=== PATIENT | male | born 1935 | race Caucasian/White ===

== ENCOUNTER 2019-10-22 11:38 | Inpatient (IN) | payer MEDICARE, SELFPAY ==
[2019-10-22] VITALS (7 sets, daily range): BP systolic 115–167; BP diastolic 61–82; PULSE 64–94; RESP 16–24; TEMP 36.4–36.7; O2SAT 95–99; BMI 33.4
--- NOTE | ~2019-10-22 | CT_ITS ---
EXAMINATION: CT abdomen pelvis wo con DATE: 10/22/2019 13:08 INDICATION: Vomiting and diarrhea TECHNIQUE: Computed tomography (CT) of the abdomen and pelvis was performed without intravenous contr ast. The dose-length product (DLP) was 1102.05 mGy-cm. Automated exposure control and iterative recon struction technique were employed. COMPARISON: None FINDINGS: . Minimal dependent atelectasis is present in the lung bases. The heart size is normal. The gallbladder is surgically absent. There is a small sliding hiatal hernia. The liver, spleen, pancrea s, and adrenal glands are normal. There is mild atrophy of the otherwise normal kidneys. No pathologi richardson enlarged abdominal or pelvic lymph nodes are identified. There is calcified atherosclerosis of the aorta and many of the other arteries. There is liquid contents throughout the small bowel and col on. There is mildly dilated small bowel in the midabdomen without focal transition point. Colonic div erticulosis is present without evidence of diverticulitis. There is severe lumbar spondylosis. IMPRESSION: 1. Liquid contents throughout the small and large bowel, suggestive of enteritis. 2. Mildly dilated small bowel in the midabdomen without focal transition point, consistent with parti al obstruction versus ileus. Reviewed, dictated and finalized at location A. IMPRESSION: 1. Liquid contents throughout the small and large bowel, suggestive of enteriti s. 2. Mildly dilated small bowel in the midabdomen without focal transition point, consistent with partial obstruction versus ileus.
--- NOTE | 2019-10-22 11:45 | ED.NAVMDI ---
HPI - Nausea/Vomiting/Diarrhea General Chief complaint: Nausea/Vomiting/Diarrhea Stated complaint: N/V/D Time Seen by Provider: 10/22/19 11:44 Source: patient Mode of arrival: EMS Limitations: no limitations History of Present Illness HPI Narrative: An 83 y/o male pt has presented to the ED via EMS from [facility] with c/o N/V/D. Pt states that he has experienced vomiting and yellow diarrhea since last night. Pt denies rhinorrhea, dizziness from sitting to standing, sore throat, or productive cough. He notes that he does not remember the exact amount of loose stools, but states that there have been a large amount of occurrences. Pt states that he ate fresh rice with chicken last night at the [facility]. He reports a H/O DM, HTN, and bowel obstruction. Pt denies a H/O CHF. He also denies sick contact a recent use of antibiotics. MD elicited complaint: nausea, vomiting and diarrhea Pertinent past history: bowel obstruction and other (DM, HTN) Onset (ago): day(s) (last night) Description of diarrhea: lose and other (yellow) Associated nausea: Yes Associated symptoms: denies other symptoms Related Data Home Medications Medication Instructions Recorded Confirmed allopurinol 100 mg PO DAILY 10/22/19 amlodipine 10 mg PO DAILY 10/22/19 dulaglutide [Trulicity] mg SUBCUT WEEKLY 10/22/19 duloxetine 60 mg PO DAILY 10/22/19 furosemide 20 mg PO DAILY 10/22/19 glipizide 10 mg PO BID 10/22/19 magnesium oxide 250 mg PO DAILY 10/22/19 metformin 1,000 mg PO BID 10/22/19 metoprolol succinate 25 mg PO DAILY 10/22/19 omeprazole 20 mg PO DAILY 10/22/19 potassium chloride 20 meq PO DAILY 10/22/19 thyroid (pork) [[employer] Thyroid] 90 mg PO DAILY 10/22/19 Allergies Allergy/AdvReac Type Severity Reaction Status Date / Time Sulfa (Sulfonamide Allergy Unknown Unknown Verified 10/22/19 17:19 Antibiotics) Review of Systems Review of Systems: All systems reviewed & are unremarkable except as noted in HPI and below ENT: Denies sore throat and Denies other (rhinorrhea) Respiratory: Respiratory: Denies cough (productive) Gastrointestinal: Gastrointestinal: Reports diarrhea (yellow), Reports nausea and Reports vomiting Neurologic: Denies dizziness (going from sitting sitting to standing) [facility] Past Medical History Medical History (Updated 10/22/19 @ 17:42 by Shalini Sanchez NP) Arthritis Chronic renal failure, stage 3 (moderate) Diabetes H/O diabetes mellitus HTN (hypertension) Hx of radiation therapy Hypothyroidism IBS (irritable bowel syndrome) With diarrhea Renal disease Surgical History Surgical History (Updated 10/22/19 @ 17:36 by Shalini Sanchez NP) H/O esophagogastroduodenoscopy X4 for esophageal strictures. H/O inguinal hernia repair 1st 1 was in 1986 and the 2nd 1 was in 1989 with a mesh Hx of appendectomy Hx of cholecystectomy Family History Family History (Updated 10/22/19 @ 17:37 by Shalini Sanchez NP) Father Carotid artery stenosis Mother Patient's mother is She shortly after she fell and fractured her hip. Within 6 months of fracturing her hip failure to thrive Social History Social History (Updated 10/22/19 @ 12:53 by Gerardo Gayle) Smoking status: Former smoker Second hand tobacco smoke exposure: Yes Alcohol intake: former Substance use: never Substance use type: does not use Last use: Quit drinking 1975 Living arrangements: [facility] Additional living arrangements comments: [facility] Gender identity (if verbalized by the patient): Male Spiritual care concerns: No Agree to blood products: Yes Exam Narrative: Exam Narrative: GENERAL: Well-appearing, well-nourished, and in no acute distress. HEAD: Normocephalic, atraumatic. ENT: Mucous membranes moist. CHEST: Clear to auscultation. No respiratory distress. HEART: Regular rate and rhythm. Normal periph
[2019-10-22] MEDS: SODIUM CHLORIDE 0.9% IV 1,000 ML 999 ML IV CONT (12:01)
[2019-10-22] MEDS: ONDANSETRON INJ 4 MG/2 ML VIAL IV PUSH (12:01)
[2019-10-22 12:07] LABS: Basophils Percent Auto 0.3 % (0.2-1.2); Eosinophils Percent Auto 0.2 % (0-4.4); Hematocrit 46.6 % (42.0-52.0); Hemoglobin 15.7 g/dL (14.0-18.0); Immature Granulocyte Absolute 0.07 K/mm3 (0.00-0.031); Immature Granulocyte Percent A 0.5 % (0-0.5); Lymphocytes Absolute Auto 0.92 K/mm3 (0.9-3.2); Lymphocytes Percent Auto 6.5 % (18.3-44.2); Mean Corpuscular HGB Conc 33.7 g/dl (32-36); Mean Corpuscular Hemoglobin 31.9 pg (26-34); Mean Corpuscular Volume 94.7 fl (80-100); Mean Platelet Volume 10.4 fl (7.4-10.4); Monocytes Absolute Auto 0.9 K/mm3 (0.1-0.6); Monocytes Percent Auto 6.2 % (2.6-8.5); Neutrophils Absolute Auto 12.2 K/mm3 (1.3-6.7); Neutrophils Percent Auto 86.3 % (45.5-73.1); Platelet Count Result 322 k/mm3 (150-375); Red Blood Count 4.92 M/mm3 (4.6-6.20); Red Cell Distribution Width 13.3 % (11.5-14.5); White Blood Count 14.1 K/mm3 (4.5-10.0)
[2019-10-22 12:22] LABS: Alanine Aminotransferase 34 U/L (4-50); Alkaline Phosphatase 134 U/L (38-126); Aspartate Amino Transferase 30 U/L (17-59); Bilirubin,Total 1.1 mg/dL (0.2-1.3); Blood Urea Nitrogen 26 mg/dL (9-20); Carbon Dioxide 22 mmol/L (22-30); Chloride 97 mmol/L (98-107); Estimated CRCL calculation 27 ml/min; Estimated Glomerular Filt Rate 27; Glucose 227 mg/dL (75-110); Lipase 40 U/L (23-300); Sodium 136 mmol/L (137-145)
[2019-10-22 12:47] LABS: Add Urine Microscopic? YES; Appearance Urine Cloudy (Clear); Bilirubin Urine 1+ (Negative); Blood Urine Negative (Negative); Color Urine Amber (Yellow); Glucose Urine UA Negative (Negative); Ketones Urine Trace mg/dL (Negative); Leukocyte Esterase Ur 1+ LEU/UL (Negative); Mucus Urine Heavy /lpf; Nitrate Urine Negative (Negative); Protein Urine 2+ mg/dL (Negative); Specific Grav Ur 1.026 (1.001-1.035); Squamous Epithelial Cell Urine Many /hpf (Few); WBC Urine >75 /hpf
--- NOTE | 2019-10-22 16:35 | PM.IMHP ---
H&P: HPI History of Present Illness Chief complaint: acute renal failure/enteritis Narrative: Yash Kowalski is a 83 year old male has a history of irritable bowel syndrome with diarrhea. The patient stated that he he started having diarrhea all day Monday. On Monday the patient stated he felt fine. On he had the diarrhea again all day. Then he felt fine until today. The patient feels like he is dehydrated. The patient stated that he did not have any blood in his stool. Of having chronic renal disease stage III. CT of the abdomen was read per Radiology as liquid contents throughout the small and large bowel suggestive of enteritis. Mildly dilated small bowel in the mid abdomen without focal transition point, consistent with partial bowel obstruction versus ileus. And given IV fluids. Was noted to be 2.2 today were his baseline is typically around 1.5. Patient is being admitted for diarrhea enteritis and acute renal failure. Patient's white count was 14.1. Date of service 10/22/2019. Review of Systems Review of Systems: Narrative: Patient stated that he feels very weak and dry All systems reviewed & are unremarkable except as noted in HPI and below Constitutional: Constitutional: Reports as per HPI and Reports no additional constitutional complaints Eyes: Eyes: Reports as per HPI and Reports no additional eye complaints ENT: Reports system reviewed and no additional complaints, except as documented and Reports Normal hearing present Cardiovascular: Cardiovascular: Reports no additional cardiovascular complaints Respiratory: Respiratory: Reports no additional respiratory complaints and Reports no additional respiratory complaints Gastrointestinal: Gastrointestinal: Reports as per HPI and Reports no additional gastrointestinal complaints Musculoskeletal: Musculoskeletal: Reports no additional musculoskeletal complaints Integumentary/Breasts: Skin/Breast: Reports system reviewed and no additional complaints, except as docu and Reports as per HPI Neurologic: Reports system reviewed and no additional complaints, except as documented, Reports as per HPI and Reports Normal hearing present Psychiatric: Psychiatric: Reports no additional psychiatric complaints and Reports as per HPI Endocrine: Endocrine: Reports no additional endocrine complaints Hematologic/Lymphatic: Hematologic/Lymphatic: Reports no additional hematologic/lymphatic complaints Allergic/Immunologic: Allergic/Immunologic: Reports no additional allergic/immunologic complaints [facility] Past Medical History Medical History (Updated 10/22/19 @ 17:42 by Shalini Sanchez NP) Arthritis Chronic renal failure, stage 3 (moderate) Diabetes H/O diabetes mellitus HTN (hypertension) Hx of radiation therapy Hypothyroidism IBS (irritable bowel syndrome) With diarrhea Renal disease Surgical History Surgical History (Updated 10/22/19 @ 17:36 by Shalini Sanchez NP) H/O esophagogastroduodenoscopy X4 for esophageal strictures. H/O inguinal hernia repair 1st 1 was in 1986 and the 2nd 1 was in 1989 with a mesh Hx of appendectomy Hx of cholecystectomy Family History Family History (Updated 10/22/19 @ 17:37 by Shalini Sanchez NP) Father Carotid artery stenosis Mother Patient's mother is She shortly after she fell and fractured her hip. Within 6 months of fracturing her hip failure to thrive Social History Social History (Updated 10/22/19 @ 12:53 by Gerardo Gayle) Smoking status: Former smoker Second hand tobacco smoke exposure: Yes Alcohol intake: former Substance use: never Substance use type: does not use Last use: Quit drinking 1975 Living arrangements: [facility] Additional living arrangements comments: [facility] Gender identity (if verbalized by the patient): Male Spiritual care concerns: No Agree to blood products: Yes Meds Home Medications and All
[2019-10-22] MEDS: SODIUM CHLORIDE 0.9% IV 1,000 ML 125 ML IV CONT (16:40)
--- NOTE | 2019-10-22 16:55 | ADMGEN ---
This patient, Yash Kowalski, was admitted to Medical Room 249-01. Patient/family oriented to hospital policies and general routines including ID bracelet, bed and alarms, visiting hours, pain management, procedures, bathroom and other care routines, personal items, smoking policy, room service/diet, and visiting hours. Valuables list has been completed. Information on how to activate the Rapid Response Team has been discussed. Patient/Family are encouraged to report perceived risks to care and to ask questions if they do not understand what they are told or what they should do.
[2019-10-22] MEDS: metroNIDAZOLE 500 MG/ISO 100ML 500 MG/100 ML BAG 100 MG IVPB ×2 (18:06→23:24)
[2019-10-22 18:12] LABS: Glucose Point of Care 152 (65-105)
[2019-10-22 19:18] LABS: Blood Urea Nitrogen 26 mg/dL (9-20); Calcium 8.9 mg/dL (8.4-10.2); Carbon Dioxide 24 mmol/L (22-30); Chloride 100 mmol/L (98-107); Estimated CRCL calculation 33 ml/min; Estimated Glomerular Filt Rate 34; Glucose 180 mg/dL (75-110); Potassium 3.2 mmol/L (3.4-5.0); Sodium 136 mmol/L (137-145)
[2019-10-22 20:44] LABS: Glucose Point of Care 204 (65-105)
[2019-10-23] MEDS: SODIUM CHLORIDE 0.9% IV 1,000 ML 125 ML IV CONT (02:36)
[2019-10-23 05:09] LABS: Basophils Percent Auto 0.4 % (0.2-1.2); Eosinophils Absolute Auto 0.2 K/mm3 (0-0.3); Eosinophils Percent Auto 2.9 % (0-4.4); Hematocrit 39.8 % (42.0-52.0); Hemoglobin 13.2 g/dL (14.0-18.0); Immature Granulocyte Absolute 0.06 K/mm3 (0.00-0.031); Immature Granulocyte Percent A 0.7 % (0-0.5); Lymphocytes Absolute Auto 1.08 K/mm3 (0.9-3.2); Lymphocytes Percent Auto 13.1 % (18.3-44.2); Mean Corpuscular HGB Conc 33.2 g/dl (32-36); Mean Corpuscular Hemoglobin 31.7 pg (26-34); Mean Corpuscular Volume 95.7 fl (80-100); Mean Platelet Volume 10.3 fl (7.4-10.4); Monocytes Absolute Auto 0.7 K/mm3 (0.1-0.6); Neutrophils Absolute Auto 6.1 K/mm3 (1.3-6.7); Neutrophils Percent Auto 73.9 % (45.5-73.1); Platelet Count Result 242 k/mm3 (150-375); Red Blood Count 4.16 M/mm3 (4.6-6.20); Red Cell Distribution Width 13.6 % (11.5-14.5); White Blood Count 8.3 K/mm3 (4.5-10.0)
[2019-10-23 05:26] LABS: Blood Urea Nitrogen 22 mg/dL (9-20); Calcium 8.5 mg/dL (8.4-10.2); Carbon Dioxide 28 mmol/L (22-30); Chloride 104 mmol/L (98-107); Estimated CRCL calculation 39 ml/min; Estimated Glomerular Filt Rate 42; Glucose 159 mg/dL (75-110); Magnesium 1.4 mg/dL (1.6-2.3); Potassium 3.4 mmol/L (3.4-5.0); Sodium 136 mmol/L (137-145)
[2019-10-23 06:00] VITALS: BP 146/61; PULSE 66; RESP 21; TEMP 36.7; O2SAT 100
[2019-10-23] MEDS: THYROID 30 MG TABLET 90 MG PO (06:27)
[2019-10-23] MEDS: metroNIDAZOLE 500 MG/ISO 100ML 500 MG/100 ML BAG 100 MG IVPB ×3 (06:27→17:56)
[2019-10-23 07:33] LABS: Hemoglobin A1C 6.6 % (<5.7)
[2019-10-23] MEDS: PANTOPRAZOLE 40 MG TABLET PO (07:59)
[2019-10-23] MEDS: AMLODIPINE BESYLATE 5 MG TABLET 10 MG PO (07:59)
[2019-10-23 08:00] VITALS: PULSE 66
[2019-10-23] MEDS: allopurinoL 100 MG TABLET PO (08:00)
[2019-10-23] MEDS: POTASSIUM CHLORIDE 20 MEQ TABLET.ER PO (08:00)
[2019-10-23] MEDS: METOPROLOL SUCCINATE EXT REL 25 MG TABCR PO (08:00)
[2019-10-23] MEDS: DULOXETINE 60 MG CAPSULE.DR PO (08:00)
[2019-10-23] MEDS: MAGNESIUM SULF 2 GM/WATER 50ML 2 GM/50 ML BAG IVPB (08:06)
[2019-10-23] MEDS: KCL 20 MEQ/LR 1,000 ML 100 ML IV CONT ×2 (09:17→22:36)
[2019-10-23 09:34] LABS: Glucose Point of Care 147 (65-105)
[2019-10-23 09:51] LABS: Total Triiodothyronine (T3) 0.73 NG/ML (0.97-1.69)
[2019-10-23 09:59] LABS: IFOB Positive Control Positive; Immunochemical Fecal Occult Bl Positive (N)
[2019-10-23] MEDS: INSULIN ASPART (*BKC) 100 UNITS/ML SUB-Q (11:26)
[2019-10-23 12:04] LABS: Glucose Point of Care 226 (65-105)
--- NOTE | 2019-10-23 12:18 | PM.IMPN ---
Progress Note: A&P Assessment and Plan (1) Diarrhea: Qualifiers: Diarrhea type: unspecified type Qualified Code(s): R19.7 - Diarrhea, unspecified Code(s): R19.7 - Diarrhea, unspecified Status: Acute Assessment and Plan: Infection (likely viral) vs drug (Trulicity + metformin) vs IBD (perhaps microscopic or collagenous colitis) Less likely c diff, enteric pathogen, food born illness, or parasite Hold aforementioned drugs IVF Symptomatic treatment Forego further diagnositic testing if he continues to improve (2) Acute renal failure: Qualifiers: Acute renal failure type: unspecified Qualified Code(s): N17.9 - Acute kidney failure, unspecified Code(s): N17.9 - Acute kidney failure, unspecified Status: Acute Assessment and Plan: Likely due to dehydration Less likely drug induced Continue IVF Creatinine 10/21 2.3, 10/22 1.6 F/u lab (3) HTN (hypertension): Qualifiers: Hypertension type: essential hypertension Qualified Code(s): I10 - Essential (primary) hypertension Code(s): I10 - Essential (primary) hypertension Status: Chronic Assessment and Plan: Continue Norvasc, metoprolol Hold Lasix (4) IBS (irritable bowel syndrome): Qualifiers: Irritable bowel syndrome type: with diarrhea Qualified Code(s): K58.0 - Irritable bowel syndrome with diarrhea Code(s): K58.9 - Irritable bowel syndrome without diarrhea Status: Chronic Assessment and Plan: Patient does have a GI specialist that he sees but is not on any specific medications at this time. (5) Hypothyroidism: Qualifiers: Hypothyroidism type: acquired Qualified Code(s): E03.9 - Hypothyroidism, unspecified Code(s): E03.9 - Hypothyroidism, unspecified Status: Chronic Assessment and Plan: TSH elevated at 14.6 on [place] Thyroid 90gm daily 10/22 Transition to levothyroxine at conservative dose of 125mcg daily (weight based would be 170mcg daily) (6) Diabetes: Qualifiers: Diabetes mellitus type: type 2 Diabetes mellitus residential insulin use: without residential use Diabetes mellitus complication status: with hyperglycemia Qualified Code(s): E11.65 - Type 2 diabetes mellitus with hyperglycemia Code(s): E11.9 - Type 2 diabetes mellitus without complications Status: Chronic Assessment and Plan: SSI Hold metformin and trulicity due to diarrhea and dehydration and STEFANIE Subjective Date/time seen: 10/23/19 12:18 Interval history: Admitted October 21 with acute renal failure and enteritis. No diarrhea yet today. No nausea vomiting. Mild twinges in the abdomen intermittently. Denied nausea vomiting or bleeding. Denied chest pain or shortness of breath. Denied urinary symptoms. Review of Systems Review of Systems: All systems reviewed & are unremarkable except as noted in HPI and below Exam Narrative: Exam Narrative: HEENT: EOMI, PERRL, pharyngeal mucosa pink and intact NECK: No JVD, adenopathy, or thyromegaly CHEST: Clear to auscultation. Normal effort. HEART: NL S1/S2, regular, no murmur ABDOMEN: BS+, soft, mild tenderness over the epigastrium and left lower quadrant without rebound or guarding. EXTREMITIES: No cyanosis, edema, or clubbing NEUROLOGIC: CN intact and symmetric to inspection. MUSCULOSKELETAL: Tone and strength symmetric. PSYCH: Alert. Oriented to person, place, and time. Objective Data Vital Signs Vital Signs: Vital Signs - 24 hr 10/22/19 12:45 10/22/19 14:06 10/22/19 15:25 Temperature Pulse Rate 94 65 75 Respiratory Rate 16 16 Blood Pressure 115/70 150/80 H 141/75 H Pulse Oximetry 98 95 10/22/19 16:17 10/22/19 16:45 10/22/19 22:00 Temperature 97.5 F L 97.5 F L Pulse Rate 72 64 65 Respiratory Rate 19 24 H 20 Blood Pressure 141/73 H 167/67 H 143/61 H Pulse Oximetry 95 99 99 10/23/19 06:00 10/23/19 08:00 Temperature 98.0 F Pulse Rat
[2019-10-23 14:00] VITALS: BP 145/64; PULSE 56; RESP 16; TEMP 36.3; O2SAT 100
[2019-10-23 18:49] LABS: Glucose Point of Care 151 (65-105)
[2019-10-23 21:20] LABS: Glucose Point of Care 187 (65-105)
[2019-10-23 22:00] VITALS: BP 128/69; PULSE 57; RESP 20; TEMP 36.1; O2SAT 95
[2019-10-24] MEDS: metroNIDAZOLE 500 MG/ISO 100ML 500 MG/100 ML BAG 100 MG IVPB ×3 (00:52→11:30)
[2019-10-24 05:41] LABS: Hemoglobin 12.1 g/dL (14.0-18.0); Mean Corpuscular HGB Conc 33.6 g/dl (32-36); Mean Corpuscular Hemoglobin 32.1 pg (26-34); Mean Corpuscular Volume 95.5 fl (80-100); Mean Platelet Volume 10.6 fl (7.4-10.4); Platelet Count Result 224 k/mm3 (150-375); Red Blood Count 3.77 M/mm3 (4.6-6.20); Red Cell Distribution Width 13.6 % (11.5-14.5); White Blood Count 6.8 K/mm3 (4.5-10.0)
[2019-10-24 05:53] LABS: Blood Urea Nitrogen 17 mg/dL (9-20); CRP 2.3 mg/dL (<1.0); Calcium 8.1 mg/dL (8.4-10.2); Carbon Dioxide 26 mmol/L (22-30); Chloride 105 mmol/L (98-107); Estimated CRCL calculation 47 ml/min; Estimated Glomerular Filt Rate 53; Glucose 144 mg/dL (75-110); Magnesium 1.7 mg/dL (1.6-2.3); Sodium 137 mmol/L (137-145)
[2019-10-24 06:00] VITALS: BP 155/63; PULSE 72; RESP 18; TEMP 36.4; O2SAT 98
[2019-10-24] MEDS: LEVOTHYROXINE SODIUM 125 MCG TABLET PO (06:16)
[2019-10-24 07:54] LABS: Glucose Point of Care 168 (65-105)
[2019-10-24] MEDS: POTASSIUM CHLORIDE 20 MEQ TABLET.ER PO (08:35)
[2019-10-24] MEDS: AMLODIPINE BESYLATE 5 MG TABLET 10 MG PO (08:35)
[2019-10-24] MEDS: allopurinoL 100 MG TABLET PO (08:35)
[2019-10-24] MEDS: PANTOPRAZOLE 40 MG TABLET PO (08:35)
[2019-10-24 08:36] VITALS: PULSE 72
[2019-10-24] MEDS: METOPROLOL SUCCINATE EXT REL 25 MG TABCR PO (08:36)
[2019-10-24] MEDS: DULOXETINE 60 MG CAPSULE.DR PO (08:36)
[2019-10-24] MEDS: INSULIN ASPART (*BKC) 100 UNITS/ML SUB-Q (11:26)
[2019-10-24] MEDS: KCL 20 MEQ/LR 1,000 ML 100 ML IV CONT (11:27)
[2019-10-24 11:36] LABS: Glucose Point of Care 202 (65-105)
--- NOTE | 2019-10-24 11:53 | PM.DS ---
DS: Diagnosis Admitting Diagnosis Admitting Diagnosis: Acute kidney failure, unspecified Discharge Diagnosis (1) Diarrhea: Qualifiers: Diarrhea type: unspecified type Qualified Code(s): R19.7 - Diarrhea, unspecified Code(s): R19.7 - Diarrhea, unspecified Status: Acute Assessment and Plan: Infection (likely viral) vs drug (Trulicity + metformin) vs IBD (perhaps microscopic or collagenous colitis) Less likely c diff, enteric pathogen, food born illness, or parasite Hold aforementioned drugs IVF Symptomatic treatment Forego further diagnositic testing if he continues to improve (2) Acute renal failure: Qualifiers: Acute renal failure type: unspecified Qualified Code(s): N17.9 - Acute kidney failure, unspecified Code(s): N17.9 - Acute kidney failure, unspecified Status: Acute Assessment and Plan: Likely due to dehydration Less likely drug induced Continue IVF Creatinine 10/21 2.3, 10/22 1.6 F/u lab (3) HTN (hypertension): Qualifiers: Hypertension type: essential hypertension Qualified Code(s): I10 - Essential (primary) hypertension Code(s): I10 - Essential (primary) hypertension Status: Chronic Assessment and Plan: Continue Norvasc, metoprolol Hold Lasix (4) IBS (irritable bowel syndrome): Qualifiers: Irritable bowel syndrome type: with diarrhea Qualified Code(s): K58.0 - Irritable bowel syndrome with diarrhea Code(s): K58.9 - Irritable bowel syndrome without diarrhea Status: Chronic Assessment and Plan: Patient does have a GI specialist that he sees but is not on any specific medications at this time. (5) Hypothyroidism: Qualifiers: Hypothyroidism type: acquired Qualified Code(s): E03.9 - Hypothyroidism, unspecified Code(s): E03.9 - Hypothyroidism, unspecified Status: Chronic Assessment and Plan: TSH elevated at 14.6 on [place] Thyroid 90gm daily 10/22 Transition to levothyroxine at conservative dose of 125mcg daily (weight based would be 170mcg daily) (6) Diabetes: Qualifiers: Diabetes mellitus complication status: with hyperglycemia Diabetes mellitus prison insulin use: without prison use Diabetes mellitus type: type 2 Qualified Code(s): E11.65 - Type 2 diabetes mellitus with hyperglycemia Code(s): E11.9 - Type 2 diabetes mellitus without complications Status: Chronic Assessment and Plan: SSI Hold metformin and trulicity due to diarrhea and dehydration and STEFANIE DS: Summary Hospital Course Reason for hospitalization: Diarrhea and fatigue Hospital Course: 83-year-old gentleman was in his usual state of health with chronic intermittent diarrhea due to irritable bowel syndrome until 2 days prior to admission when he experienced more diarrhea than usual. The following day he felt somewhat better. However the day of admission he felt poorly again with some diarrhea. He presented the emergency department where he was found on imaging to have findings consistent with enteritis versus partial bowel obstruction. Labs indicated dehydration with elevated creatinine at 2.3. Patient was treated conservatively with symptomatic therapy and IV hydration. Creatinine improved to 1.3 by day of discharge. He was up and about independently and tolerating his diet. He was able to walk the [facility] with standby assist from physical therapy. He wished to go home. He has started on truly a 2-3 weeks prior to admission. He was instructed to hold this medication as it may cause diarrhea. He was discuss it further with his primary physician at their follow-up visit. Status at Discharge Functional status at discharge: independent ambulation Overall status at discharge: patient is back to baseline Time Spent with Patient Time attestation: Total time spent providing and/or coordinating discharge services: 35 min Exam Narrative: Exam
== END 2019-10-24 13:25 | disposition home or self-care (01) | DRG 392 ==
LOC: ANHED 15:13 → ANH2MED 16:09
PROVIDERS: Nurse Practitioner; Admitting Provider Internal Medicine; Emergency Provider Emergency Medicine; PCP Family Medicine; Visit Provider Internal Medicine
DX: A08.4 Viral intestinal infection, unspecified (principal); N17.9 Acute kidney failure, unspecified; E86.0 Dehydration; K58.0 Irritable bowel syndrome with diarrhea; T38.3X5A Adverse effect of insulin and oral hypoglycemic [antidiabetic] drugs, initial encounter; E03.9 Hypothyroidism, unspecified; E11.9 Type 2 diabetes mellitus without complications; I10 Essential (primary) hypertension; Z90.49 Acquired absence of other specified parts of digestive tract; Z28.21 Immunization not carried out because of patient refusal
CPT/HCPCS: 36415; 74176; 80048; 80053; 81001; 82274; 83036; 83690; 83735; 84439; 84443; 84480; 85025; 85027; 86140; 87015; 87045; 87046; 87086; 87088; 87269; 87272; 87427; 89055; 96361; 96365; 96366; 96367; 96374; 96375; 97161; 97165; 99285; A9270; G0378; J1815; J2405; J3475; J7030

== ENCOUNTER 2020-06-08 13:54 | Observation (INO) | payer MEDICARE, SELFPAY ==
--- NOTE | ~2020-06-08 | CT_ITS ---
EXAMINATION: CT abdomen pelvis w con DATE: 06/08/2020 16:06 INDICATION: Abdominal pain, nausea, vomiting and diarrhea for 4 days TECHNIQUE: Computed tomography (CT) of the abdomen and pelvis was performed with 100 cc Omnipaque 350 intravenous contrast. Automated exposure control and iterative reconstruction technique were employe d. Exam dose: 1411.24 mGy-cm total exam DLP. COMPARISON: 10/22/2019 CT abdomen pelvis FINDINGS: The lung bases are clear of infiltrate or consolidation. Coronary artery calcifications. Heart size is within normal range. No pericardial or pleural effusion . Small sliding hiatal hernia. Status post cholecystectomy. No hepatic, splenic, pancreatic, and adrenal or renal space-occupying mass lesion is evident. There is calcification of the abdominal aorta, celiac and superior mesenteric and renal arteries as w ell as iliac arteries. No abdominal aortic aneurysm. Femoral artery calcifications are noted as well. No intraperitoneal or retroperitoneal or pelvic mass lesion or adenopathy or ascites. 2. bladder diverticula are noted, one on each side, measuring up to 2.1 cm on the left. The urinary b ladder otherwise appears unremarkable. Status post appendectomy. There are innumerable diverticula of the sigmoid and to a lesser extent descending colon; no CT evide nce of diverticulitis. No bowel obstruction or intraperitoneal free air. Small fat-containing inguinal hernias, right larger than left. Diffuse idiopathic skeletal hyperostosis of the thoracic spine. Multilevel degenerative disease of th e lumbar/lumbosacral spine. No suspicious osteolytic or osteoblastic lesions are noted. IMPRESSION: No bowel obstruction or free air Diverticulosis of the left colon; no CT evidence of diverticulitis or abscess Status post appendectomy Status post cholecystectomy Bladder diverticula Reviewed, dictated and finalized at [facility]. Reviewed, dictated and finalized at [facility]. ROLLER
[2020-06-08 14:03] VITALS: BP 124/56; PULSE 62; RESP 20; TEMP 36.5; O2SAT 97
[2020-06-08 14:38] LABS: Basophils Percent Auto 0.4 % (0.2-1.2); Eosinophils Percent Auto 0.4 % (0-4.4); Hematocrit 46.4 % (42.0-52.0); Hemoglobin 16.1 g/dL (14.0-18.0); Immature Granulocyte Absolute 0.06 K/mm3 (0.00-0.031); Immature Granulocyte Percent A 0.7 % (0-0.5); Lymphocytes Absolute Auto 0.82 K/mm3 (0.9-3.2); Lymphocytes Percent Auto 9.2 % (18.3-44.2); Mean Corpuscular HGB Conc 34.7 g/dl (32-36); Mean Corpuscular Hemoglobin 33.3 pg (26-34); Mean Corpuscular Volume 95.9 fl (80-100); Mean Platelet Volume 9.9 fl (7.4-10.4); Monocytes Absolute Auto 0.6 K/mm3 (0.1-0.6); Monocytes Percent Auto 7.1 % (2.6-8.5); Neutrophils Absolute Auto 7.3 K/mm3 (1.3-6.7); Neutrophils Percent Auto 82.2 % (45.5-73.1); Platelet Count Result 317 k/mm3 (150-375); Red Blood Count 4.84 M/mm3 (4.6-6.20); Red Cell Distribution Width 12.5 % (11.5-14.5); White Blood Count 8.9 K/mm3 (4.5-10.0)
[2020-06-08 14:50] LABS: Alanine Aminotransferase 37 U/L (4-50); Albumin Level 4.4 g/dL (3.5-5.1); Alkaline Phosphatase 90 U/L (38-126); Anion Gap 9 mmol/L (8-16); Aspartate Amino Transferase 43 U/L (17-59); Blood Urea Nitrogen 19 mg/dL (9-20); Calcium 9.7 mg/dL (8.4-10.2); Carbon Dioxide 29 mmol/L (22-30); Chloride 98 mmol/L (98-107); Estimated CRCL calculation 37 ml/min; Estimated Glomerular Filt Rate 39; Glucose 226 mg/dL (75-110); Lipase 50 U/L (23-300); Sodium 136 mmol/L (137-145)
[2020-06-08] MEDS: SODIUM CHLORIDE 0.9% IV 1,000 ML 999 ML IV CONT ×2 (15:03→17:25)
--- NOTE | 2020-06-08 15:23 | ED.NAVMDI ---
HPI - Nausea/Vomiting/Diarrhea General Chief complaint: Nausea/Vomiting/Diarrhea Stated complaint: DIARRHEA Time Seen by Provider: 06/08/20 14:51 Source: patient Mode of arrival: EMS Limitations: no limitations History of Present Illness HPI Narrative: This is a 84 year old male that presents to the ER for diarrhea x 4 days. Reports nausea and vomiting as well. Reports he has not been able to keep much down. Reports he feels generally weak. Reports crampy abdominal pain. Denies fever, hematochezia, or melena. Related Data Home Medications Medication Instructions Recorded Confirmed allopurinol 200 mg PO BID 10/22/19 10/22/19 amlodipine 10 mg PO DAILY 10/22/19 10/22/19 duloxetine 60 mg PO DAILY 10/22/19 10/22/19 furosemide 20 mg PO DAILY 10/22/19 10/22/19 glipizide 10 mg PO BID 10/22/19 10/22/19 metformin 1,000 mg PO BID 10/22/19 10/22/19 metoprolol succinate 25 mg PO DAILY 10/22/19 10/22/19 omeprazole 20 mg PO DAILY 10/22/19 10/22/19 potassium chloride 20 meq PO DAILY 10/22/19 10/22/19 Tradjenta 5 mg PO DAILY 06/08/20 levothyroxine 06/08/20 magnesium oxide 250 mg PO DAILY 06/08/20 rivaroxaban [Xarelto] 20 mg PO DAILY 06/08/20 Allergies Allergy/AdvReac Type Severity Reaction Status Date / Time Sulfa (Sulfonamide Allergy Unknown Unknown Verified 10/22/19 17:19 Antibiotics) Review of Systems Review of Systems: Narrative: CONSTITUTIONAL: Denies fever GASTROINTESTINAL: Reports abdominal pain, nausea, vomiting, and diarrhea. All systems reviewed & are unremarkable except as noted in HPI and below PMFSH Past Medical History Medical History (Updated 06/08/20 @ 18:24 by Renae Mcghee PA-C) Arthritis Chronic renal failure, stage 3 (moderate) Diabetes H/O diabetes mellitus HTN (hypertension) Hx of radiation therapy Hypothyroidism IBS (irritable bowel syndrome) With diarrhea Renal disease Surgical History Surgical History (Updated 10/22/19 @ 17:36 by Shalini Sanchez NP) H/O esophagogastroduodenoscopy X4 for esophageal strictures. H/O inguinal hernia repair 1st 1 was in 1986 and the 2nd 1 was in 1989 with a mesh Hx of appendectomy Hx of cholecystectomy Family History Family History (Updated 10/22/19 @ 17:37 by Shalini Sanchez NP) Father Carotid artery stenosis Mother Patient's mother is She shortly after she fell and fractured her hip. Within 6 months of fracturing her hip failure to thrive Social History Social History (Updated 10/22/19 @ 12:53 by Gerardo Gayle) Smoking status: Former smoker Second hand tobacco smoke exposure: Yes Alcohol intake: former Substance use: never Substance use type: does not use Last use: Quit drinking 1975 Additional living arrangements comments: [facility] Gender identity (if verbalized by the patient): Male Spiritual care concerns: No Agree to blood products: Yes Exam Narrative: Exam Narrative: GENERAL: Well-appearing, well-nourished, and in no acute distress. HEAD: Normocephalic, atraumatic. EYES: EOMI. ENT: Mucous membranes moist. Oropharynx without tonsillar hypertrophy exudate or other lesions. NECK: Supple. No adenopathy or masses. CHEST: Clear to auscultation. No respiratory distress. No wheezes rales or rhonchi HEART: Regular rate and rhythm. No murmur heard. Normal peripheral pulses. ABDOMEN: Soft, nondistended, normal active bowel sounds. Mild tenderness to palpation throughout the abdomen, without guarding EXTREMITIES: Normal range of motion. No edema. SKIN: Warm, dry, no rash. NEURO: No focal deficits. Alert and oriented x3. PSYCH: Normal mood and affect Course Consultations Consultation #1: Spoke with hospitalist about patient and work-up who accepts admission Date: 06/08/20 Time: 18:24 Vital Signs Vital signs: Vital Signs Temperature 97.7 F 06/08/20 14:03 Pulse Rate 62 06/08/20 14:03 Respiratory Rate 20 06/08/20 14:03 Blood Pressure 124
[2020-06-08] MEDS: ONDANSETRON INJ 4 MG/2 ML VIAL IV PUSH (15:34)
[2020-06-08 16:46] VITALS: BP 132/66
[2020-06-08 16:47] VITALS: BP 139/67; PULSE 96
[2020-06-08 17:15] LABS: Add Urine Microscopic? YES; Appearance Urine Clear (Clear); Bacteria Urine Trace /hpf; Bilirubin Urine Negative (Negative); Blood Urine Negative (Negative); Color Urine Yellow (Yellow); Glucose Urine UA Negative (Negative); Ketones Urine Negative (Negative); Leukocyte Esterase Ur Negative LEU/UL (Negative); Mucus Urine Rare /lpf; Nitrate Urine Negative (Negative); Protein Urine 2+ mg/dL (Negative); RBC Urine 0-2 /hpf (0-2); Specific Grav Ur 1.019 (1.001-1.035); Squamous Epithelial Cell Urine Rare /hpf (Few); Urobilinogen Urine Negative mg/dL (<2.0); WBC Urine 0-3 /hpf
--- NOTE | 2020-06-08 18:00 | PM.IMHP ---
H&P: HPI History of Present Illness Date/Time: 06/08/20 18:00 Chief complaint: Weakness and diarrhea. Narrative: Yash Kowalski is a pleasant 84-year-old male with type 2 diabetes mellitus, hypertension, hypothyroidism, and chronic kidney disease who presented to the emergency department earlier today via EMS from [facility] at [place] with complaints of weakness and diarrhea. Four days ago on Monday he began feeling poorly with symptoms to include nausea, vomiting, and diarrhea. He has not vomited since Monday although he does continue to have upwards of 5 to 7 of diarrhea a day, which he describes as watery and brown/yellow in appearance. He continues to have a poor appetite with nausea and notes dry heaves nearly every morning. He has become progressively more weak and is now extremely lightheaded/dizzy when standing. Despite not eating much, his glucose has been much higher than usual, running in the 250s to 260s. He has also noticed a decrease in urine output with darker colored urine and feels dehydrated. He denies sick contacts, recent travel, and recent antibiotic use. No fever or chills but he has had some mild sweats. In the emergency department he was deemed to have of orthostatic hypotension as he was unable to stand for longer than a few seconds due to reports of dizziness and weakness. It is noted that his supine and sitting blood pressures were stable and well within normal limits. Review of Systems Review of Systems: Narrative: Twelve systems were reviewed with pertinent positives and negatives as per HPI. No headache. No vertigo, focal weakness, or paresthesias. No sinus congestion, rhinorrhea, otalgia, or odynophagia. He denies chest pain shortness of breath. No epigastric or abdominal pain. No cough or exposure to those positive for COVID-19. He denies dysuria. His diabetes is typically well controlled with a hemoglobin A1c of 6.6% in spring 2019. Fasting glucose is usually around 140, and is unusual for him to have high levels like he has been having the past couple of days. No blurry vision. Except as documented, all other systems were reviewed and are negative. [facility] Past Medical History Medical History (Updated 06/08/20 @ 21:08 by Vicki Redman PA-C) Arthritis Chronic renal failure, stage 3 (moderate) Baseline creatinine is between 1.3 and 1.60. Esophageal stricture With several EGDs requiring dilatation. 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 History of hernia repair Umbilical hernia repair x2 with mesh. History of orthopedic surgery Repair of left elbow fracture. Family History Family History Father Carotid artery stenosis Mother Patient's mother is She shortly after she fell and fractured her hip. Within 6 months of fracturing her hip failure to thrive Social History Social History (Updated 06/08/20 @ 21:05 by Vicki Redman PA-C) Social History: Surrogate decision maker: Candice Roche, daughter or Koko Kowalski, son. Code status: Full code. Smoking status: Former smoker Second hand tobacco smoke exposure: Yes Alcohol intake: never Substance use: never Substance use type: does not use Last use: Quit drinking in 1975. Additional living arrangements comments: Lives with his in independent living at [place]. She suffers from dementia and he is her primary asic design engineer. Additional occupation/education comments:
[2020-06-08 18:58] VITALS: BP 164/67; PULSE 60; RESP 16; TEMP 36.2; O2SAT 99; BMI 34.0
[2020-06-08 20:00] VITALS: BP 159/62; PULSE 57; PULSE 59; RESP 20; TEMP 36.6; O2SAT 98
[2020-06-08] MEDS: SODIUM CHLORIDE 0.9% IV 1,000 ML 100 ML IV CONT (22:30)
[2020-06-08 22:37] LABS: Glucose Point of Care 153 (65-105)
[2020-06-09] VITALS (9 sets, daily range): BP systolic 108–179; BP diastolic 48–78; PULSE 55–122; RESP 16–20; TEMP 36.4–36.8; O2SAT 97–99
[2020-06-09 05:48] LABS: Anion Gap 7 mmol/L (8-16); Blood Urea Nitrogen 14 mg/dL (9-20); Calcium 8.5 mg/dL (8.4-10.2); Carbon Dioxide 28 mmol/L (22-30); Chloride 102 mmol/L (98-107); Estimated CRCL calculation 50 ml/min; Estimated Glomerular Filt Rate 58; Glucose 110 mg/dL (75-110); Magnesium 1.9 mg/dL (1.6-2.3); Sodium 137 mmol/L (137-145)
[2020-06-09] MEDS: LEVOTHYROXINE SODIUM 125 MCG TABLET PO (06:29)
[2020-06-09 07:19] LABS: Glucose Point of Care 125 (65-105)
--- NOTE | 2020-06-09 08:47 | PM.IMPN ---
Progress Note: A&P Assessment and Plan (1) Diarrhea: Qualifiers: Diarrhea type: unspecified type Qualified Code(s): R19.7 - Diarrhea, unspecified Code(s): R19.7 - Diarrhea, unspecified Status: Resolved Assessment and Plan: Resolved. Likely secondary to a viral infection, flare of irritable bowel syndrome, or may be a side effect of his medications which seems to be less likely. Continue symptomatic treatment including IV fluids, antiemetics, and anti motility agents. Stool cultures were ordered but he is not having any further diarrhea. There is no indication for antibiotics at this time. Continue to monitor. (2) Orthostatic hypotension: Code(s): I95.1 - Orthostatic hypotension Status: Acute Assessment and Plan: Secondary to dehydration. He received adequate IV fluid hydration and he is tolerating PO intake well. He does have orthostatic hypotension on repeat vitals today but he is not having any further symptoms today. Add HANNA hose. Continue fall precautions. Continue to monitor. (3) Dehydration: Code(s): E86.0 - Dehydration Status: Resolved Assessment and Plan: Resolved. Secondary to ongoing diarrhea and poor oral intake for the last 4 days. He received 2 liters fluid bolus in the ED and maintenance fluids overnight. He appears adequately hydrated. He is tolerating PO intake well. Will discontinue IV fluids. (4) Irritable bowel syndrome with constipation and diarrhea: Code(s): K58.2 - Mixed irritable bowel syndrome Status: Chronic Assessment and Plan: It is possible that his diarrhea, nausea, and vomiting were due to IBS. His symptoms have resolved. Continue to monitor. (5) Type 2 diabetes mellitus: Code(s): E11.9 - Type 2 diabetes mellitus without complications Status: Chronic Assessment and Plan: Blood sugars are reasonably controlled. Hold prior to admission hypoglycemics. Continue ACHS glucose monitoring, sliding scale insulin, and hypoglycemia protocol. Continue to monitor. (6) Hypothyroidism: Qualifiers: Hypothyroidism type: acquired Qualified Code(s): E03.9 - Hypothyroidism, unspecified Code(s): E03.9 - Hypothyroidism, unspecified Status: Chronic Assessment and Plan: TSH was 1.88. Continue levothyroxine. (7) Hypertension: Code(s): I10 - Essential (primary) hypertension Status: Chronic Assessment and Plan: Blood pressures are reasonably controlled. He did have orthostasis but was asymptomatic. Continue amlodipine and metoprolol. (8) Generalized weakness: Code(s): R53.1 - Weakness Status: Acute Assessment and Plan: Likely secondary to poor PO intake and dehydration given GI symptoms. Continue fall precautions. PT/OT have been consulted for further input which is greatly appreciated. Subjective Date/time seen: 06/09/20 08:47 Mr. Kowalski is an 84 y.o. male with PMH significant for hypertension, CKD III, HLD, HTN, T2DM, and IBS who is seen in follow-up for dehydration and orthostatic hypotension due to diarrhea. He feels much better today. He reports no further episodes of diarrhea. He ate oatmeal and peaches for breakfast and did not have any further nausea or vomiting. He got up today for his orthostatic blood pressure measurement and did not have any further dizziness or lightheadedness with standing. He has not worked with PT/OT yet today. He is not having any chest pain or shortness of breath. He reports some low back discomfort which he attributes to the hospital bed being uncomfortable. He has no other concerns today. Review of Systems Review of Systems: All systems reviewed & are unremarkable except as noted in HPI and below Exam Narrative: Exam Narrative: General: Very pleasant, well-developed and well-nourished elderly 84 y.o. male lying supine in bed resting in no acute distress. JOHANNE
[2020-06-09] MEDS: SODIUM CHLORIDE 0.9% IV 1,000 ML 100 ML IV CONT (08:51)
[2020-06-09] MEDS: POTASSIUM CHLORIDE 20 MEQ TABLET.ER PO (10:04)
[2020-06-09] MEDS: DULoxetine HCL 60 MG CAPSULE.DR PO (10:04)
[2020-06-09] MEDS: allopurinoL 100 MG TABLET 200 MG PO (10:04)
[2020-06-09 11:32] LABS: Glucose Point of Care 235 (65-105)
[2020-06-09] MEDS: INSULIN ASPART (*BKC) 100 UNITS/ML SUB-Q (11:40)
[2020-06-09 16:16] LABS: Glucose Point of Care 172 (65-105)
[2020-06-09] MEDS: LOPERAMIDE HCL 2 MG CAPSULE PO (16:17)
[2020-06-09] MEDS: METOPROLOL SUCCINATE EXT REL 25 MG TABCR PO (16:17)
[2020-06-09] MEDS: amLODIPine BESYLATE 5 MG TABLET 10 MG PO (16:17)
[2020-06-09] MEDS: ENOXAPARIN 40 MG/0.4 ML SYRINGE SUB-Q (21:22)
[2020-06-09] MEDS: MAGNESIUM OXIDE 200 MG TABLET PO (21:22)
[2020-06-09 22:59] LABS: Glucose Point of Care 193 (65-105)
[2020-06-10 05:46] LABS: Anion Gap 7 mmol/L (8-16); Blood Urea Nitrogen 12 mg/dL (9-20); Calcium 8.9 mg/dL (8.4-10.2); Carbon Dioxide 30 mmol/L (22-30); Chloride 100 mmol/L (98-107); Estimated CRCL calculation 48 ml/min; Estimated Glomerular Filt Rate 53; Glucose 168 mg/dL (75-110); Potassium 4.2 mmol/L (3.4-5.0); Sodium 137 mmol/L (137-145)
[2020-06-10 05:55] VITALS: BP 151/65; PULSE 58; RESP 16; TEMP 36.3; O2SAT 97
[2020-06-10 05:56] VITALS: BP 118/61; BP 118/69
[2020-06-10] MEDS: LEVOTHYROXINE SODIUM 125 MCG TABLET PO (06:29)
[2020-06-10 07:51] LABS: Glucose Point of Care 207 (65-105)
[2020-06-10] MEDS: DULoxetine HCL 60 MG CAPSULE.DR PO (08:03)
[2020-06-10] MEDS: MAGNESIUM OXIDE 200 MG TABLET PO (08:03)
[2020-06-10] MEDS: allopurinoL 100 MG TABLET 200 MG PO (08:03)
[2020-06-10] MEDS: POTASSIUM CHLORIDE 20 MEQ TABLET.ER PO (08:03)
[2020-06-10] MEDS: INSULIN ASPART (*BKC) 100 UNITS/ML SUB-Q (08:04)
--- NOTE | 2020-06-10 08:29 | PM.DS ---
DS: Admitting Diagnosis Admitting Diagnosis Admitting Diagnosis: Weakness and diarrhea. DS: Discharge Diagnosis Discharge Diagnosis (1) Diarrhea: Qualifiers: Diarrhea type: unspecified type Qualified Code(s): R19.7 - Diarrhea, unspecified Code(s): R19.7 - Diarrhea, unspecified Status: Resolved Assessment and Plan: Discharge Summary (Date of service 06/10/20): Mr. Kowalski is an 84 y.o. male with PMH significant for hypertension, CKD III, HLD, HTN, T2DM, and IBS who presented to the emergency department for the evaluation of diarrhea, nausea, and vomiting for 4 days. He endorsed associated generalized weakness, diffuse crampy abdominal pain, and lightheadedness with standing. Orthostatic BP reading in the emergency department demonstrated orthostatic hypotension. CT abd/pelvis was performed with no acute findings. He was admitted for IV fluid hydration overnight given orthostasis. His GI symptoms were felt secondary to a viral infection, flare of irritable bowel syndrome, or may be a side effect of his medications. Stool cultures were obtained. He felt much better overall. His stool frequency decreased significantly and he was not having any further nausea or vomiting. He was tolerating his diet well and appetite was good. He was no longer lightheaded with standing and worked well with PT/OT. On the day of anticipated discharge, the GDH antigen of the C. diff toxin assay was positive (toxin A &B were negative). He was discharged home with PO vancomycin given concern for possible C. diff associated diarrhea as he did recently take antibiotics for a dental issue. He was discharged in hemodynamically stable condition on the afternoon of 06/10/20. Stool was sent for C. diff PCR testing and subsequently negative. I called the patient after discharge to notify him that he could stop the PO vancomycin. (2) Orthostatic hypotension: Code(s): I95.1 - Orthostatic hypotension Status: Acute Assessment and Plan: Secondary to dehydration. He received adequate IV fluid hydration and PO fluid intake improved significantly. Orthostatic BP reading did demonstrate orthostatic hypotension although he was asymptomatic and understood the importance of rising slowly with position change/fall precautions. HANNA hose were applied. (3) Dehydration: Code(s): E86.0 - Dehydration Status: Resolved Assessment and Plan: Resolved. Secondary to ongoing diarrhea and poor oral intake for the last 4 days. He received 2 liters fluid bolus in the ED and maintenance fluids. He appears adequately hydrated and was tolerating PO fluid intake well so IV fluids were discontinued 06/09. (4) Irritable bowel syndrome with constipation and diarrhea: Code(s): K58.2 - Mixed irritable bowel syndrome Status: Chronic Assessment and Plan: It is possible that his diarrhea, nausea, and vomiting were due to IBS. Symptoms resolved. (5) Type 2 diabetes mellitus: Code(s): E11.9 - Type 2 diabetes mellitus without complications Status: Chronic Assessment and Plan: Blood sugars were reasonably controlled. Prior to admission hypoglycemics were resumed at discharge. (6) Hypothyroidism: Qualifiers: Hypothyroidism type: acquired Qualified Code(s): E03.9 - Hypothyroidism, unspecified Code(s): E03.9 - Hypothyroidism, unspecified Status: Chronic Assessment and Plan: TSH was 1.88. Levothyroxine was continued. (7) Hypertension: Code(s): I10 - Essential (primary) hypertension Status: Chronic Assessment and Plan: Blood pressures are reasonably controlled. He did have orthostasis but was asymptomatic. Amlodipine and metoprolol were continued. (8) Generalized weakness: Code(s): R53.1 - Weakness Status: Acute Assessment and Plan: Likely secondary to poor PO intake and dehydration given GI symptoms. PT
--- NOTE | 2020-06-10 11:20 | PC.NURSE ---
KARMA Jackson notified of stool culture result. Received orders to hold the patients discharge for now until she is able to review it.
== END 2020-06-10 12:16 | disposition home or self-care (01) ==
LOC: ANHED 17:23 → ANH2MED 18:00
PROVIDERS: Physician Assistant; Admitting Provider Family Medicine; Emergency Provider Emergency Medicine; PCP Family Medicine; Visit Provider Internal Medicine
DX: N17.9 Acute kidney failure, unspecified (principal); E86.0 Dehydration; I95.1 Orthostatic hypotension; E03.9 Hypothyroidism, unspecified; I12.9 Hypertensive chronic kidney disease with stage 1 through stage 4 chronic kidney disease, or unspecified chronic kidney disease; E11.22 Type 2 diabetes mellitus with diabetic chronic kidney disease; N18.30 Chronic kidney disease, stage 3 unspecified; K58.2 Mixed irritable bowel syndrome; R53.1 Weakness; Z79.84 Long term (current) use of oral hypoglycemic drugs
CPT/HCPCS: 36415; 51701; 74177; 80048; 80053; 81001; 83690; 83735; 84443; 85025; 87015; 87045; 87046; 87269; 87272; 87324; 87427; 87493; 96361; 96365; 96372; 96375; 97116; 97161; 97165; 97530; 99285; A9270; G0378; J0131; J1650; J1815; J2405; J7030; Q9967

== ENCOUNTER → 2021-03-02 02:26 | Outpatient (CLI) | payer MEDICARE, SELFPAY ==
[2021-03-03 15:33] LABS: SARS-CoV-2 RNA PCR Negative
== END ==
PROVIDERS: PCP Family Medicine; Visit Provider Family Medicine
DX: R68.89 Other general symptoms and signs (principal); Z20.822 Contact with and (suspected) exposure to COVID-19
CPT/HCPCS: C9803; U0003; U0005

== ENCOUNTER 2021-04-06 14:02 | Emergency (ER) | payer MEDICARE, SELFPAY ==
--- NOTE | ~2021-04-06 | CT_ITS ---
EXAMINATION: CT brain wo con INDICATION: Head injury COMPARISON: 05/21/2017 TECHNIQUE: Standard unenhanced head CT. The dose-length product (DLP) was 605.33 mGy-cm. The mA was a djusted according to patient size. Iterative reconstruction technique was employed. FINDINGS: There is left periorbital soft tissue swelling. There is no acute intraparenchymal hemorrha ge. No evidence of mass lesion. No evidence of acute infarction. There is mild periventricular and tubbs bcortical hypodensity probably related to small vessel ischemic disease. There is mild prominence of the sulci and ventricles related to cerebral atrophy. Intracranial calcified cerebral atherosclerosis is noted. There are no extra-axial collections. There is no mass effect or midline shift. Changes in the globes are likely from ocular lens surgery. There is complete opacification of the right maxilla ry sinus with wall thickening, consistent with chronic sinusitis. IMPRESSION: 1. Left periorbital hematoma without acute intracranial abnormality. 2. Age related findings. 3. Chronic right maxillary. Reviewed, dictated and finalized at [facility].
--- NOTE | ~2021-04-06 | CT_ITS ---
EXAMINATION: CT cervical spine wo [facility] EXAM DATE: 04/06/2021 14:54 INDICATION: Fall, head injury. TECHNIQUE: Spiral CT of the cervical spine was performed without contrast. Axial images were reviewe d. Coronal and sagittal reformatted images cervical spine were also reviewed. The dose-length produc t (DLP) for this examination was 456.13 mGy-cm. The exposure was tailored according to patient size (auto mA exposure control), and iterative reconstruction (ASIR) was used as additional dose reduction technique. Comparison is made to prior examination from 05/21/2017. FINDINGS: Minimal compression fracture of T2 at the superior endplate which was not present in 2017, but has some sclerosis and no adjacent soft tissue swelling, probably old. There is no evidence of ac sandra cervical fracture. The odontoid process is intact. Pre-dens space is normal. Prevertebral soft tissue is normal. There are no soft tissue abnormalities identified. There is no disc space wideni ng or traumatic vertebral body subluxation suspected. Mild to moderate cervical spondylosis. A deta iled level by level evaluation of spondylosis can be added as addendum if requested. IMPRESSION: 1. No acute cervical fracture. 2. Minimal T2 chronic compression. Reviewed, dictated and finalized at [facility].
[2021-04-06 14:02] VITALS: BP 159/97; PULSE 60; RESP 18; TEMP 36.6; O2SAT 100
--- NOTE | 2021-04-06 15:23 | ED.FALL ---
HPI - Fall General Chief Complaint: Fall Stated Complaint: fall with head injury Time Seen by Provider: 04/06/21 14:13 Source: patient Mode of arrival: ambulatory Limitations: no limitations History of Present Illness HPI Narrative: 85-year-old male No blood thinners Patient said that he was getting ready to drag his trash out when somebody walked by and startled him and he tripped over his feet and fell to the left side landing on his leg and arm and banging his left forehead on the wall or floor Denies any symptoms prior to this and in fact denies any symptoms after this as well, apart from a nice goose egg lateral to his left eye He did have a skin lesion removed from that area sometime ago No neck pain, no neurologic symptoms Related Data Home Medications Medication Instructions Recorded Confirmed allopurinol 200 mg PO DAILY 10/22/19 06/08/20 amlodipine 10 mg PO DAILY@1700 10/22/19 06/08/20 duloxetine 60 mg PO DAILY 10/22/19 06/08/20 glipizide 10 mg PO BID 10/22/19 06/08/20 metformin 1,000 mg PO BID 10/22/19 06/08/20 metoprolol succinate 25 mg PO DAILY@1700 10/22/19 06/08/20 omeprazole 20 mg PO DAILY PRN 10/22/19 06/08/20 potassium chloride 20 meq PO DAILY 10/22/19 06/08/20 levothyroxine [Synthroid] 125 mcg PO DAILY@0630 06/08/20 06/08/20 magnesium oxide 250 mg PO DAILY 06/08/20 06/08/20 Allergies Allergy/AdvReac Type Severity Reaction Status Date / Time Sulfa (Sulfonamide Allergy Unknown Unknown Verified 06/08/20 18:48 Antibiotics) Review of Systems Review of Systems: All systems reviewed & are unremarkable except as noted in HPI and below Constitutional: Constitutional: Reports no additional constitutional complaints, Denies chills, Denies fatigue, Denies fever(s), Denies headache(s) and Denies weakness Eyes: Eyes: Reports no additional eye complaints and Denies change in vision ENT: Denies headache(s) Cardiovascular: Cardiovascular: Denies chest pain, Denies rapid heart rate and Denies dyspnea Respiratory: Respiratory: Denies dyspnea Musculoskeletal: Musculoskeletal: Denies back pain, Denies deformity, Denies arthralgias, Denies joint swelling and Denies numbness Integumentary/Breasts: Skin/Breast: Denies rash and Denies wounds Neurologic: Denies vertigo, Denies dizziness, Denies syncope, Denies headache(s), Denies focal weakness, Denies numbness and Denies weakness Psychiatric: Psychiatric: Reports no additional psychiatric complaints Endocrine: Endocrine: Reports no additional endocrine complaints Hematologic/Lymphatic: Hematologic/Lymphatic: Reports no additional hematologic/lymphatic complaints Allergic/Immunologic: Allergic/Immunologic: Reports no additional allergic/immunologic complaints [facility] Past Medical History Medical History (Updated 04/06/21 @ 15:28 by Koko Anderson MD) Arthritis Chronic renal failure, stage 3 (moderate) Baseline creatinine is between 1.3 and 1.60. Esophageal stricture With several EGDs requiring dilatation. 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 History of hernia repair Umbilical hernia repair x2 with mesh. History of orthopedic surgery Repair of left elbow fracture. Family History Family History Father Carotid artery stenosis Mother Patient's mother is She shortly after she fell and fractured her hip. Within 6 months of fracturing her hip failure to thrive Social History Social History (Updated 06/08/20 @ 21:05
[2021-04-06 16:21] VITALS: BP 157/86; PULSE 68; RESP 16; O2SAT 100
== END 2021-04-06 16:22 | disposition home or self-care (01) ==
PROVIDERS: Emergency Provider Emergency Medicine; PCP Family Medicine
DX: S00.93XA Contusion of unspecified part of head, initial encounter (principal); M19.90 Unspecified osteoarthritis, unspecified site; I12.9 Hypertensive chronic kidney disease with stage 1 through stage 4 chronic kidney disease, or unspecified chronic kidney disease; E11.22 Type 2 diabetes mellitus with diabetic chronic kidney disease; N18.30 Chronic kidney disease, stage 3 unspecified; E78.5 Hyperlipidemia, unspecified; E03.9 Hypothyroidism, unspecified; Z87.19 Personal history of other diseases of the digestive system; Z87.891 Personal history of nicotine dependence; W01.10XA Fall on same level from slipping, tripping and stumbling with subsequent striking against unspecified object, initial encounter; Y92.009 Unspecified place in unspecified non-institutional (private) residence as the place of occurrence of the external cause
CPT/HCPCS: 70450; 72125; 99284

== ENCOUNTER 2022-04-01 10:16 | Outpatient (CLI) | payer MEDICARE, SELFPAY ==
--- NOTE | ~2022-04-01 | XR_ITS ---
EXAMINATION: XR abdomen obstructive series DATE: 04/01/2022 12:14 INDICATION: Vomiting and abdominal distention TECHNIQUE: Upright and supine views of the abdomen were obtained. COMPARISON: CT, 06/08/2020 FINDINGS: A large volume of colonic stool is present. There is no free intraperitoneal gas. There are mildly dilated small bowel in the left midabdomen. There is mild osteoarthritis of the hips. Severe lumbar spondylosis is noted. IMPRESSION: 1. Mildly dilated small bowel in the left midabdomen with gas and stool visualized in the colon. Find ing could reflect ileus versus partial obstruction. Reviewed, dictated and finalized at [facility]. IMPRESSION: 1. Mildly dilated small bowel in the left midabdomen with gas and stool visuali zed in the colon. Finding could reflect ileus versus partial obstruction.
[2022-04-01 11:09] LABS: Basophils Percent Auto 0.4 % (0.2-1.2); Eosinophils Absolute Auto 0.2 K/mm3 (0-0.3); Hematocrit 40.7 % (42.0-52.0); Hemoglobin 13.9 g/dL (14.0-18.0); Immature Granulocyte Absolute 0.04 K/mm3 (0.00-0.031); Immature Granulocyte Percent A 0.5 % (0-0.5); Lymphocytes Percent Auto 12.4 % (18.3-44.2); Mean Corpuscular HGB Conc 34.2 g/dl (32-36); Mean Corpuscular Hemoglobin 32.9 pg (26-34); Mean Corpuscular Volume 96.4 fl (80-100); Mean Platelet Volume 10.4 fl (7.4-10.4); Monocytes Absolute Auto 0.6 K/mm3 (0.1-0.6); Monocytes Percent Auto 6.8 % (2.6-8.5); Neutrophils Absolute Auto 6.3 K/mm3 (1.3-6.7); Neutrophils Percent Auto 77.9 % (45.5-73.1); Platelet Count Result 244 k/mm3 (150-375); Red Blood Count 4.22 M/mm3 (4.6-6.20); Red Cell Distribution Width 12.9 % (11.5-14.5); White Blood Count 8.1 K/mm3 (4.5-10.0)
[2022-04-01 12:31] LABS: Erythrocyte Sedimentation Rate 23 mm/hr (0-20)
[2022-04-01 14:20] LABS: Hemoglobin A1C 8.3 % (<5.7)
[2022-04-01 14:59] LABS: Alanine Aminotransferase 38 U/L (6-50); Albumin Level 3.9 g/dL (3.5-5.1); Alkaline Phosphatase 98 U/L (38-126); Anion Gap 8 mmol/L (8-16); Aspartate Amino Transferase 32 U/L (17-59); Bilirubin,Total 0.5 mg/dL (0.2-1.3); Blood Urea Nitrogen 28 mg/dL (9-20); CRP 0.6 mg/dL (<1.0); Calcium 9.5 mg/dL (8.4-10.2); Carbon Dioxide 27 mmol/L (22-30); Chloride 98 mmol/L (98-107); Cholesterol 189 mg/dL (0-200); Estimated Glomerular Filt Rate 48; Glucose 237 mg/dL (65-110); HDL Direct 42 mg/dL; Lipase 65 U/L (23-300); Potassium 4.8 mmol/L (3.4-5.0); Sodium 133 mmol/L (137-145); Triglycerides 91 mg/dL (<150)
[2022-04-01 15:08] LABS: LDL Cholesterol Direct 104 mg/dL
[2022-04-01 15:29] LABS: Prostate Specific Antigen 1.8 ng/mL (< OR = 4.0); Total Triiodothyronine (T3) 0.95 NG/ML (0.97-1.69)
[2022-04-01 16:03] LABS: Folic Acid 8.1 ng/mL (2.76->20)
== END 2022-04-01 10:17 | disposition home or self-care (01) ==
PROVIDERS: PCP Family Medicine; Visit Provider Family Medicine
DX: R10.9 Unspecified abdominal pain (principal); R11.10 Vomiting, unspecified; K21.9 Gastro-esophageal reflux disease without esophagitis; E11.9 Type 2 diabetes mellitus without complications; Z12.5 Encounter for screening for malignant neoplasm of prostate
CPT/HCPCS: 36415; 74019; 80053; 80061; 82746; 83036; 83690; 84153; 84439; 84443; 84480; 85025; 85652; 86140; G0103

== ENCOUNTER 2022-04-07 15:13 | Outpatient (CLI) | payer MEDICARE, SELFPAY ==
--- NOTE | ~2022-04-07 | CT_ITS ---
EXAMINATION: CT abdomen pelvis wo con DATE: 04/07/2022 15:55 INDICATION: Abdominal discomfort. TECHNIQUE: Computed tomography (CT) of the abdomen and pelvis was performed without intravenous contr ast. Automated exposure control and iterative reconstruction technique were employed. The dose-length product was 1455.42 mGy-cm. COMPARISON: CT abdomen and pelvis 06/08/2020 FINDINGS: The visualized portions of the lung bases demonstrate chronic interstitial lung disease inc luding bronchiectasis. No pleural effusion. The heart size is normal. There are coronary artery calci fications. No pericardial effusion. The liver and spleen are normal. There are changes of cholecystec martha. The pancreas and adrenal glands are normal. There is cortical thinning of the kidneys. There ar e diverticula of the bladder. The prostate is mildly enlarged. There is diverticulosis of the colon w ithout evidence of diverticulitis. There are changes of appendectomy. There are no pathologically enl arged lymph nodes. There is no free intraperitoneal fluid. There is prominent fat in right inguinal c anal that may be a hernia. There is severe lumbar spondylosis. There are bridging endplate osteophyte s at multiple levels in the thoracic spine, consistent with diffuse idiopathic skeletal hyperostosis (DISH). IMPRESSION: 1. Prominent fat in right inguinal canal that may be a hernia. Reviewed, dictated and finalized at location [facility].
== END 2022-04-07 15:14 | disposition home or self-care (01) ==
LOC: ANHIMG 15:19
PROVIDERS: PCP Family Medicine; Visit Provider Nurse Practitioner Adult Health
DX: R11.10 Vomiting, unspecified (principal); R10.9 Unspecified abdominal pain
CPT/HCPCS: 74176

== ENCOUNTER 2022-08-01 09:00 | Inpatient (IN) | payer MEDICARE, SELFPAY ==
[2022-08-01] VITALS (37 sets, daily range): BP systolic 80–190; BP diastolic 57–95; PULSE 73–112; RESP 9–36; TEMP 36.2–36.7; O2SAT 93–100; BMI 32.2
--- NOTE | ~2022-08-01 | CT_ITS ---
EXAMINATION: CT abdomen pelvis w con DATE: 08/01/2022 10:12 INDICATION: Abdominal pain TECHNIQUE: Computed tomography (CT) of the abdomen and pelvis was performed with 100 mL Omnipaque-350 intravenous contrast. Automated exposure control and iterative reconstruction technique were employe d. The dose-length product was 1165.84 mGy-cm. COMPARISON: 05/07/2022 FINDINGS: Mild atelectasis and chronic interstitial lung disease with bronchiectatic changes at the bilateral l lianet bases. Heart size is normal. Atherosclerotic coronary artery calcific location. Aortic valve calc ification. No pericardial or pleural effusion. Small sliding-type hiatal hernia. Cholecystectomy clip s at the gallbladder fossa. Liver, spleen and bilateral adrenal glands are normal. Dystrophic calcifi c a cyst at the tail the pancreas consistent with sequela of chronic pancreatitis. Again seen is mario ical thinning at both kidneys, left more prominent than right. Couple subcentimeter low-attenuation b ilateral renal cysts. Appendix is not visualized and there is a surgical clip near the tip the cecum likely related to prior appendectomy. There is colonic diverticulosis, prominent at the sigmoid colon but without adjacent inflammatory change to suggest diverticulitis. Again seen are couple bilateral posterior bladder diverticula. Changes suggesting prior transurethral prostatectomy. Asymmetric mildl y increased fat in the right inguinal canal likely related to small right inguinal hernia. No free in traperitoneal gas or fluid. No pathologically enlarged abdominal or pelvic lymphadenopathy. There is calcified atherosclerosis of the aorta and many of the other arteries. Severe lumbar spondylosis. The re are bridging osteophytes at multiple levels in the spine, consistent with diffuse idiopathic skele sandra hyperostosis (DISH). IMPRESSION: 1. No acute intra-abdominal/pelvic process. 2. Diverticulosis. 3. Small sliding-type hiatal hernia. 4. Asymmetric mildly prominent fat in the right inguinal canal potentially right inguinal hernia. 5. Bibasilar chronic interstitial lung disease with associated mild bronchiectasis. Reviewed, dictated and finalized at location A. S [employer]BLE[employer] IMPRESSION: 1. No acute intra-abdominal/pelvic process. 2. Diverticulosis. 3. Small sliding-type hiatal hernia. 4. Asymmetric mildly prominent fat in the right inguinal canal potentially righ t inguinal hernia. 5. Bibasilar chronic interstitial lung disease with associat ed mild bronchiectasis.
--- NOTE | ~2022-08-01 | US_ITS ---
EXAMINATION: US renal BI DATE: 08/01/2022 23:08 INDICATION: Acute on chronic renal failure. TECHNIQUE: Multiple ultrasound grayscale images of the kidneys were obtained. COMPARISON: CT abdomen and pelvis 08/01/2022 FINDINGS: The right kidney measures 10.0 x 6.2 x 6.3 cm. The left kidney measures 11.0 x 5.7 x 6.1 cm. The kidn eys demonstrate normal parenchymal echogenicity. There is no hydronephrosis. The bladder is normal. IMPRESSION: 1. Normal kidney sizes. No hydronephrosis. Reviewed, dictated and finalized at location A. [employer]
[2022-08-01 09:29] LABS: Basophils Percent Auto 0.3 % (0.2-1.2); Eosinophils Percent Auto 0.4 % (0-4.4); Hematocrit 44.6 % (42.0-52.0); Hemoglobin 15.2 g/dL (14.0-18.0); Immature Granulocyte Absolute 0.04 K/mm3 (0.00-0.031); Immature Granulocyte Percent A 0.5 % (0-0.5); Lymphocytes Absolute Auto 1.09 K/mm3 (0.9-3.2); Lymphocytes Percent Auto 13.8 % (18.3-44.2); Mean Corpuscular HGB Conc 34.1 g/dl (32-36); Mean Corpuscular Hemoglobin 32.6 pg (26-34); Mean Corpuscular Volume 95.7 fl (80-100); Mean Platelet Volume 9.6 fl (7.4-10.4); Monocytes Absolute Auto 0.7 K/mm3 (0.1-0.6); Monocytes Percent Auto 8.5 % (2.6-8.5); Neutrophils Percent Auto 76.5 % (45.5-73.1); Platelet Count Result 285 k/mm3 (150-375); Red Blood Count 4.66 M/mm3 (4.6-6.20); Red Cell Distribution Width 12.2 % (11.5-14.5); White Blood Count 7.9 K/mm3 (4.5-10.0)
--- NOTE | 2022-08-01 09:29 | ED.GENADULT ---
HPI - General Adult General Chief complaint: Nausea/Vomiting/Diarrhea Stated complaint: wekaness & nausea Source: RN notes reviewed History of Present Illness HPI narrative: Patient presents emergency department from home for nausea vomiting. Patient states he began to have nausea and vomiting 2 days ago with numerous episodes of emesis since that time. States he has been unable to keep anything down. He states he has been feeling generally weak with the symptoms he states that this associate with abdominal pain is diffuse throughout the abdomen described as cramping he denies any fevers or chills chest pain shortness of breath diarrhea. States he had similar episode approximately 2 weeks ago and gone to his PCP at that time with an ultrasound that did not show any acute process Related Data Home Medications Medication Instructions Recorded Confirmed allopurinol 100 mg tablet 200 mg PO DAILY 10/22/19 08/01/22 amlodipine 10 mg tablet 10 mg PO DAILY@1700 10/22/19 08/01/22 duloxetine 60 mg capsule,delayed 60 mg PO DAILY 10/22/19 08/01/22 release glipizide 10 mg tablet 10 mg PO BID 10/22/19 08/01/22 metformin 500 mg tablet,extended 1,000 mg PO BID 10/22/19 08/01/22 release 24 hr metoprolol succinate 25 mg 25 mg PO DAILY@1700 10/22/19 08/01/22 tablet,extended release 24 hr omeprazole 20 mg capsule,delayed 20 mg PO DAILY PRN Acid Reflux 10/22/19 06/08/20 release potassium chloride 20 mEq 20 meq PO DAILY 10/22/19 06/08/20 tablet,extended release(part/cryst) levothyroxine 125 mcg tablet 125 mcg PO DAILY@0630 06/08/20 08/01/22 (Synthroid) magnesium oxide 250 mg PO DAILY 06/08/20 08/01/22 pantoprazole 20 mg tablet,delayed mg PO 08/01/22 release Allergies Allergy/AdvReac Type Severity Reaction Status Date / Time Sulfa (Sulfonamide Allergy Unknown Unknown Verified 08/01/22 09:11 Antibiotics) Review of Systems Review of Systems: Gen.: Denies fevers or chills ENT: Denies congestion Respiratory: Denies shortness of breath or cough CV: Denies chest pain or palpitations GI: See HPI denies burning, urgency, frequency or hematuria Musculoskeletal: Denies back pain or muscle pain Neuro: Denies numbness, tingling, weakness or focal weakness Skin: Denies rash Except as documented, all other systems reviewed and negative [facility] Past Medical History Medical History Arthritis Chronic renal failure, stage 3 (moderate) Baseline creatinine is between 1.3 and 1.60. Esophageal stricture With several EGDs requiring dilatation. 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 History of hernia repair Umbilical hernia repair x2 with mesh. History of orthopedic surgery Repair of left elbow fracture. Family History Family History Father Carotid artery stenosis Mother Patient's mother is She shortly after she fell and fractured her hip. Within 6 months of fracturing her hip failure to thrive Social History Social History Social History: Surrogate decision maker: Candice Roche, daughter or Koko Kowalski, son. Code status: Full code. Smoking status: Former smoker Second hand tobacco smoke exposure: Yes Alcohol intake: never Substance use: never Substance use type: does not use Last use: Quit drinking in 1975. Additional living arrangements comments: Lives with his
[2022-08-01 09:38] LABS: Alanine Aminotransferase 35 U/L (6-50); Albumin Level 4.3 g/dL (3.5-5.1); Alkaline Phosphatase 99 U/L (38-126); Anion Gap 9 mmol/L (8-16); Aspartate Amino Transferase 37 U/L (17-59); Bilirubin,Total 1.1 mg/dL (0.2-1.3); Blood Urea Nitrogen 21 mg/dL (9-20); Calcium 8.9 mg/dL (8.4-10.2); Carbon Dioxide 28 mmol/L (22-30); Chloride 95 mmol/L (98-107); Estimated CRCL calculation 67 ml/min; Estimated Glomerular Filt Rate 48; Glucose 233 mg/dL (65-110); Lipase 66 U/L (23-300); Potassium 4.5 mmol/L (3.4-5.0); Sodium 132 mmol/L (137-145)
[2022-08-01] MEDS: SODIUM CHLORIDE 0.9% IV 1,000 ML 999 ML IV CONT (10:13)
--- NOTE | 2022-08-01 10:17 | PC.NURSE ---
pt attempting to urinate at this time
--- NOTE | 2022-08-01 10:18 | PC.NURSE ---
After first set of Orthos were done pt received remaining 700 ml of NS that was started by EMS
[2022-08-01 11:13] LABS: Add Urine Microscopic? YES; Appearance Urine Clear (Clear); Bilirubin Urine Negative (Negative); Blood Urine Trace-Intact (Negative); Color Urine Yellow (Yellow); Glucose Urine UA Trace mg/dL (Negative); Ketones Urine Trace mg/dL (Negative); Leukocyte Esterase Ur Negative LEU/UL (Negative); Nitrate Urine Negative (Negative); Protein Urine 2+ mg/dL (Negative); Urobilinogen Urine 0.2 mg/dL (<2.0); pH Urine 5.5 (5.0-9.0)
[2022-08-01 11:43] LABS: Bacteria Urine Trace /hpf; Mucus Urine Rare /lpf; RBC Urine 0-2 /hpf (0-2); Squamous Epithelial Cell Urine Occasional /hpf (Few); Transitional Epi Cells Urine Rare /hpf (None Seen); WBC Urine 0-3 /hpf
--- NOTE | 2022-08-01 13:00 | ADMGEN ---
This patient, Yash Kowalski, was admitted to Medical Room 251-01. Patient/family oriented to hospital policies and general routines including ID bracelet, bed and alarms, visiting hours, pain management, procedures, bathroom and other care routines, personal items, smoking policy, room service/diet, and visiting hours. Information on how to activate the Rapid Response Team has been discussed. Patient/Family are encouraged to report perceived risks to care and to ask questions if they do not understand what they are told or what they should do.
[2022-08-01 13:27] LABS: Influenza A QL RT-PCR Negative (Negative); Influenza B QL RT-PCR Negative (Negative); SARS-CoV-2 RNA PCR Negative
[2022-08-01] MEDS: SODIUM CHLORIDE 0.9% IV 1,000 ML 100 ML IV CONT (13:56)
--- NOTE | 2022-08-01 14:24 | PM.IMHP ---
H&P: HPI History of Present Illness Date/Time: 08/01/22 14:24 Chief Complaint: Nausea vomiting diarrhea. Narrative: This is an 86-year-old male patient who lives home alone. The patient has been having nausea vomiting for 2 days with numerous episodes of emesis since that time. The patient has also had several episodes of diarrhea. The patient has a history of irritable bowel syndrome with both diarrhea and constipation. The patient was prescribed MiraLax twice a day and he stated that was too much for him. The patient has severe abdominal cramping but denied any fever chills. No shortness of breath. The patient has been feeling weak. The patient had a similar episode approximately 2 weeks ago and had an ultrasound which was reportedly negative. Today the patient had a CT of the abdomen and pelvis in the emergency room. No acute intra-abdominal/pelvic process. 2. Diverticulosis. 3. Small sliding-type hiatal hernia. 4. Asymmetric mildly prominent fat in the right inguinal canal potentially right inguinal hernia. 5. Bibasilar chronic interstitial lung disease with associated mild bronchiectasis. His side sodium was slightly low at 132. Creatinine 1.4 last March is 1.4 as well. His blood sugars 233. He was negative for influenza A/B and COVID. The patient was started on IV fluids in the emergency room. The patient is being admitted for observation status on the date of service of 08/01/2022. Review of Systems Review of Systems: See HPI All systems reviewed & are unremarkable except as noted in HPI and below Constitutional: Constitutional: Reports as per HPI and Reports no additional constitutional complaints Eyes: Eyes: Reports as per HPI and Reports no additional eye complaints ENT: Reports system reviewed and no additional complaints, except as documented and Reports Normal hearing present Cardiovascular: Cardiovascular: Reports no additional cardiovascular complaints Respiratory: Respiratory: Reports no additional respiratory complaints and Reports no additional respiratory complaints Gastrointestinal: Gastrointestinal: Reports as per HPI and Reports no additional gastrointestinal complaints Musculoskeletal: Musculoskeletal: Reports no additional musculoskeletal complaints Integumentary/Breasts: Skin/Breast: Reports system reviewed and no additional complaints, except as docu and Reports as per HPI Neurologic: Reports system reviewed and no additional complaints, except as documented, Reports as per HPI and Reports Normal hearing present Psychiatric: Psychiatric: Reports no additional psychiatric complaints and Reports as per HPI Endocrine: Endocrine: Reports no additional endocrine complaints Hematologic/Lymphatic: Hematologic/Lymphatic: Reports no additional hematologic/lymphatic complaints Allergic/Immunologic: Allergic/Immunologic: Reports no additional allergic/immunologic complaints [facility] Past Medical History Medical History Arthritis Chronic renal failure, stage 3 (moderate) Baseline creatinine is between 1.3 and 1.60. Esophageal stricture With several EGDs requiring dilatation. 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 History of hernia repair Umbilical hernia repair x2 with mesh. History of orthopedic surgery Repair of left elbow fracture. Family History Family History Father Carotid artery stenosis Mother Patient's mother is She passe
[2022-08-01] MEDS: FAMOTIDINE 20 MG/2 ML VIAL IV PUSH (20:09)
[2022-08-01] MEDS: ONDANSETRON INJ 4 MG/2 ML VIAL IV PUSH (20:13)
[2022-08-01 20:18] LABS: Hemoglobin A1C 8.8 % (<5.7)
[2022-08-01 20:21] LABS: Glucose Point of Care 227 mg/dl (65-105)
[2022-08-02] VITALS (8 sets, daily range): BP systolic 132–167; BP diastolic 58–76; PULSE 63–96; RESP 18–20; TEMP 36.3–37.2; O2SAT 97–100
[2022-08-02] MEDS: SODIUM CHLORIDE 0.9% IV 1,000 ML 100 ML IV CONT ×3 (00:50→20:03)
[2022-08-02 06:09] LABS: Basophils Percent Auto 0.5 % (0.2-1.2); Eosinophils Absolute Auto 0.1 K/mm3 (0-0.3); Hemoglobin 13.7 g/dL (14.0-18.0); Immature Granulocyte Absolute 0.06 K/mm3 (0.00-0.031); Immature Granulocyte Percent A 0.8 % (0-0.5); Lymphocytes Absolute Auto 1.06 K/mm3 (0.9-3.2); Lymphocytes Percent Auto 13.7 % (18.3-44.2); Mean Corpuscular HGB Conc 33.4 g/dl (32-36); Mean Corpuscular Hemoglobin 32.2 pg (26-34); Mean Corpuscular Volume 96.5 fl (80-100); Mean Platelet Volume 9.8 fl (7.4-10.4); Monocytes Absolute Auto 0.7 K/mm3 (0.1-0.6); Monocytes Percent Auto 9.1 % (2.6-8.5); Neutrophils Absolute Auto 5.8 K/mm3 (1.3-6.7); Neutrophils Percent Auto 74.9 % (45.5-73.1); Platelet Count Result 248 k/mm3 (150-375); Red Blood Count 4.25 M/mm3 (4.6-6.20); Red Cell Distribution Width 12.5 % (11.5-14.5); White Blood Count 7.8 K/mm3 (4.5-10.0)
[2022-08-02 06:21] LABS: Lactic Acid Reflex 0.9 mmol/L (0.7-2.0)
[2022-08-02] MEDS: LEVOTHYROXINE SODIUM 125 MCG TABLET PO (06:23)
[2022-08-02 06:40] LABS: Alanine Aminotransferase 30 U/L (6-50); Albumin Level 3.7 g/dL (3.5-5.1); Alkaline Phosphatase 88 U/L (38-126); Anion Gap 7 mmol/L (8-16); Aspartate Amino Transferase 30 U/L (17-59); Bilirubin,Total 0.7 mg/dL (0.2-1.3); Blood Urea Nitrogen 13 mg/dL (9-20); Calcium 8.1 mg/dL (8.4-10.2); Carbon Dioxide 26 mmol/L (22-30); Chloride 103 mmol/L (98-107); Estimated CRCL calculation 49 ml/min; Estimated Glomerular Filt Rate 58; Glucose 204 mg/dL (65-110); Lactate Dehydrogenase 176 U/L (120-246); Lipase 67 U/L (23-300); Magnesium 1.8 mg/dL (1.6-2.3); Phosphorus 3.2 mg/dL (2.5-4.5); Potassium 3.9 mmol/L (3.4-5.0); Sodium 136 mmol/L (137-145)
[2022-08-02] MEDS: ENOXAPARIN 40 MG/0.4 ML SYRINGE SUB-Q (08:24)
[2022-08-02] MEDS: POTASSIUM CHLORIDE 20 MEQ TABLET.ER PO (08:24)
[2022-08-02] MEDS: FAMOTIDINE 20 MG/2 ML VIAL IV PUSH (08:24)
[2022-08-02] MEDS: DULoxetine HCL 60 MG CAPSULE.DR PO (08:25)
[2022-08-02 09:16] LABS: Glucose Point of Care 226 mg/dl (65-105)
[2022-08-02] MEDS: INSULIN ASPART (*BKC) 100 UNITS/ML SUB-Q ×2 (09:37→13:08)
--- NOTE | 2022-08-02 11:27 | WPDGICN ---
Assessment and Plan Assessment and plan (1) Nausea and vomiting: Code(s): R11.2 - Nausea with vomiting, unspecified Status: Acute Assessment and Plan: Patient with nausea vomiting that has currently resolved. Etiology of the is is unclear. CT scan is unremarkable. Laboratory test unremarkable. It may have started with a viral illness. Potentially perpetuated if he became dehydrated. Plan to advance diet to full liquid diet and then soft bland diet as tolerated. Likely he would benefit from underlying pantoprazole for treatment of acid reflux disease. This was manifested by prior esophageal web in 2018. Should be continued long-term. This would be a better choice for acid suppression and Pepcid if at all possible. (2) Irritable bowel syndrome with constipation and diarrhea: Code(s): K58.2 - Mixed irritable bowel syndrome Status: Chronic Assessment and Plan: Patient has irregular bowel habits. Previously given the diagnosis of irritable bowel syndrome. Would advised patient start fiber supplement such as Metamucil he has not yet done this. MiraLax can be given for constipation but a mild laxative used only infrequently would be best. At the present time I see no need for invasive testing in this gentleman. GI Consult Note Consult date/time: 08/02/22 11:27 Reason for consult: Nausea vomiting, dehydration HPI: Yash Kowalski is a 86 year old male I am asked to see because of nausea vomiting and irregular bowel movements. Patient states he was in his usual state of health till Monday when he began his vomiting. Carver very weak on Monday and eventually presented to the hospital was admitted because of dehydration. Patient remarked reports no additional vomiting since Monday. Patient apparently has had intermittent constipation and diarrhea. His primary care physician prescribed MiraLax for his constipation but this contributes to diarrhea. Patient denies any bleeding. He apparently has had episodes of this periodically in the past. He feels somewhat improved after getting IV rehydration presently. Currently tolerating liquid diet without difficulty. He denies any specific abdominal pain. Patient does have a past medical history of ventral hernia repair with mesh. States occasionally feels a bubble in this area. This does not particularly occur with his vomiting. Patient has a history of a food impaction in 2018 EGD revealed distal esophageal web was dilated. patient denies any difficulty swallowing presently. Review of Systems Review of Systems: Review of systems noncontributory. [facility] Past Medical History Medical History Arthritis Chronic renal failure, stage 3 (moderate) Baseline creatinine is between 1.3 and 1.60. Esophageal stricture With several EGDs requiring dilatation. 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 History of hernia repair Umbilical hernia repair x2 with mesh. History of orthopedic surgery Repair of left elbow fracture. Family History Family History Father Carotid artery stenosis Mother Patient's mother is She shortly after she fell and fractured her hip. Within 6 months of fracturing her hip failure to thrive Social History Social History (Updated 08/01/22 @ 17:56 by Shalini Sanchez NP) Social History: The patient is and lives in independent living. He is retired
[2022-08-02 12:01] LABS: Glucose Point of Care 265 mg/dl (65-105)
--- NOTE | 2022-08-02 13:03 | P.PNIM_ITS ---
Progress Note: A&P Assessment and Plan (1) Nausea and vomiting: Code(s): R11.2 - Nausea with vomiting, unspecified Status: Acute Assessment and Plan: Patient arrived to hospital on 08/01/2022 with complaints of nausea vomiting. Patient states that his last episode of vomiting was 07/30/2022. Patient states that he did not ingest any food or drink since that day due to fear of vomiting again. * Continue with IV fluids * GI has been consulted * IV Pepcid. * IV Zofran monitor QT interval hold if prolonged QT. EKG ordered to monitor QT interval. * CT abdomen pelvis negative for acute Pathology. * Most likely viral illness * Dehydration could potentially have caused onset/continuation of nausea vomiting * Patient can most likely be discharged tomorrow pending PT and OT evaluation. (2) Orthostatic hypotension: Code(s): I95.1 - Orthostatic hypotension Status: Acute Assessment and Plan: * Orthostatics ordered Q shift * The patient most likely is dehydrated. * Sodium is slightly low at 132 on admission * sodium increased to normal with fluid resuscitation. (3) Acute renal insufficiency: Code(s): N28.9 - Disorder of kidney and ureter, unspecified Status: Acute Assessment and Plan: * Continue with IV fluids * creatinine is 1.4. It had been up to 2.3 a couple years ago. * The daughter states that this diarrhea has been chronic. She stated that he has IBS with mixed constipation and diarrhea. * Hold nephrotoxic medication. (4) Type 2 diabetes mellitus: Code(s): E11.9 - Type 2 diabetes mellitus without complications Status: Chronic Assessment and Plan: * Holding metformin due to the acute on chronic renal failure. * Accu-Cheks AC and HS with hypoglycemic protocol. * check A1c. (5) Irritable bowel syndrome with constipation and diarrhea: Code(s): K58.2 - Mixed irritable bowel syndrome Status: Chronic Assessment and Plan: * Patient has chronic history of IBS * GI has been consulted * continue with IV fluids. * continue to monitor electrolytes and check magnesium level. * the patient was ordered MiraLax from his primary care doctor's office. The patient stated he could not tolerate taking it is the cause him to have severe diarrhea. * I explained to the patient that he could be on a high-fiber diet. The patient stated he eats cereal every day. I recommended a fiber substitute or fiber bars or a drink that has fiber in it. The patient stated that he tried to eat an apple day. * Explained to the patient that he could drink Gatorade 0 when he becomes dehydrated at home. * Stool cultures have been ordered. (6) Dehydration: Code(s): E86.0 - Dehydration Status: Resolved Assessment and Plan: * The patient has had nausea vomiting and diarrhea * continue to hydrate. (7) Hypothyroidism: Qualifiers: Hypothyroidism type: acquired Qualified Code(s): E03.9 - Hypothyroidism, unspecified Code(s): E03.9 - Hypothyroidism, unspecified Status: Chronic Assessment and Plan: Check thyroid level and continue levothyroxine. Subjective Date/time seen: 08/02/22 13:03 Interval history: 08/02/22 86-year-old male with history of chronic kidney disease, IBS, hypertension, diabetes, and hypothyroidism. Patient presented to the ED due to nausea vomiting and diarrhea. Patient has chronic history of diarrhea attributed to his IBS. Patient had not had vomiting episode and 3 days upon arrival to ED. Patient feeling weak today although he
--- NOTE | 2022-08-02 13:03 | PM.IMPN ---
Progress Note: A&P Assessment and Plan (1) Nausea and vomiting: Code(s): R11.2 - Nausea with vomiting, unspecified Status: Acute Assessment and Plan: Patient arrived to hospital on 08/01/2022 with complaints of nausea vomiting. Patient states that his last episode of vomiting was 07/30/2022. Patient states that he did not ingest any food or drink since that day due to fear of vomiting again. Continue with IV fluids GI has been consulted IV Pepcid. IV Zofran monitor QT interval hold if prolonged QT. EKG ordered to monitor QT interval. CT abdomen pelvis negative for acute Pathology. Most likely viral illness Dehydration could potentially have caused onset/continuation of nausea vomiting Patient can most likely be discharged tomorrow pending PT and OT evaluation. (2) Orthostatic hypotension: Code(s): I95.1 - Orthostatic hypotension Status: Acute Assessment and Plan: Orthostatics ordered Q shift The patient most likely is dehydrated. Sodium is slightly low at 132 on admission sodium increased to normal with fluid resuscitation. (3) Acute renal insufficiency: Code(s): N28.9 - Disorder of kidney and ureter, unspecified Status: Acute Assessment and Plan: Continue with IV fluids creatinine is 1.4. It had been up to 2.3 a couple years ago. The daughter states that this diarrhea has been chronic. She stated that he has IBS with mixed constipation and diarrhea. Hold nephrotoxic medication. (4) Type 2 diabetes mellitus: Code(s): E11.9 - Type 2 diabetes mellitus without complications Status: Chronic Assessment and Plan: Holding metformin due to the acute on chronic renal failure. Accu-Cheks AC and HS with hypoglycemic protocol. check A1c. (5) Irritable bowel syndrome with constipation and diarrhea: Code(s): K58.2 - Mixed irritable bowel syndrome Status: Chronic Assessment and Plan: Patient has chronic history of IBS GI has been consulted continue with IV fluids. continue to monitor electrolytes and check magnesium level. the patient was ordered MiraLax from his primary care doctor's office. The patient stated he could not tolerate taking it is the cause him to have severe diarrhea. I explained to the patient that he could be on a high-fiber diet. The patient stated he eats cereal every day. I recommended a fiber substitute or fiber bars or a drink that has fiber in it. The patient stated that he tried to eat an apple day. Explained to the patient that he could drink Gatorade 0 when he becomes dehydrated at home. Stool cultures have been ordered. (6) Dehydration: Code(s): E86.0 - Dehydration Status: Resolved Assessment and Plan: The patient has had nausea vomiting and diarrhea continue to hydrate. (7) Hypothyroidism: Qualifiers: Hypothyroidism type: acquired Qualified Code(s): E03.9 - Hypothyroidism, unspecified Code(s): E03.9 - Hypothyroidism, unspecified Status: Chronic Assessment and Plan: Check thyroid level and continue levothyroxine. Subjective Date/time seen: 08/02/22 13:03 Interval history: 08/02/22 86-year-old male with history of chronic kidney disease, IBS, hypertension, diabetes, and hypothyroidism. Patient presented to the ED due to nausea vomiting and diarrhea. Patient has chronic history of diarrhea attributed to his IBS. Patient had not had vomiting episode and 3 days upon arrival to ED. Patient feeling weak today although he has not had any nausea, vomiting or diarrhea. PT and OT ordered for patient. Patient denies fevers, headache, dizziness, shortness of breath, chest pain, abdominal pain. Review of Systems Review of Systems: All systems reviewed & are unremarkable except as noted in HPI and below Exam Narrative: GENERAL: Comfortable, no acute distress HENMT: moist mucous membranes EYES: EOM intact b/l NECK: no lym
[2022-08-02 14:26] LABS: Toxigenic C. Diff NEGATIVE (NEGATIVE)
[2022-08-02] MEDS: METOPROLOL SUCCINATE EXT REL 25 MG TABCR PO (16:19)
[2022-08-02] MEDS: amLODIPine BESYLATE 5 MG TABLET 10 MG PO (16:20)
[2022-08-02 17:24] LABS: Glucose Point of Care 149 mg/dl (65-105)
[2022-08-02 19:35] LABS: Glucose Point of Care 202 mg/dl (65-105)
[2022-08-03 05:34] LABS: Hemoglobin 13.3 g/dL (14.0-18.0); Mean Corpuscular HGB Conc 33.3 g/dl (32-36); Mean Corpuscular Hemoglobin 32.2 pg (26-34); Mean Corpuscular Volume 96.9 fl (80-100); Mean Platelet Volume 9.9 fl (7.4-10.4); Platelet Count Result 234 k/mm3 (150-375); Red Blood Count 4.13 M/mm3 (4.6-6.20); Red Cell Distribution Width 12.6 % (11.5-14.5); White Blood Count 5.9 K/mm3 (4.5-10.0)
[2022-08-03 05:43] LABS: Alanine Aminotransferase 27 U/L (6-50); Albumin Level 3.7 g/dL (3.5-5.1); Alkaline Phosphatase 89 U/L (38-126); Anion Gap 5 mmol/L (8-16); Aspartate Amino Transferase 26 U/L (17-59); Bilirubin,Total 0.7 mg/dL (0.2-1.3); Blood Urea Nitrogen 11 mg/dL (9-20); Calcium 8.2 mg/dL (8.4-10.2); Carbon Dioxide 26 mmol/L (22-30); Chloride 104 mmol/L (98-107); Estimated CRCL calculation 53 ml/min; Estimated Glomerular Filt Rate > 60; Glucose 185 mg/dL (65-110); Sodium 135 mmol/L (137-145)
[2022-08-03 06:00] VITALS: BP 170/64; PULSE 56; RESP 20; TEMP 36.1; O2SAT 98
[2022-08-03 06:05] VITALS: BP 140/67; PULSE 60; RESP 21; TEMP 36.2; O2SAT 100
[2022-08-03 06:10] VITALS: BP 139/70; PULSE 79; RESP 21; TEMP 36.2; O2SAT 100
[2022-08-03] MEDS: LEVOTHYROXINE SODIUM 125 MCG TABLET PO (07:29)
[2022-08-03 08:31] LABS: Glucose Point of Care 198 mg/dl (65-105)
[2022-08-03] MEDS: ENOXAPARIN 40 MG/0.4 ML SYRINGE SUB-Q (08:48)
[2022-08-03] MEDS: PSYLLIUM SUGAR FREE POWDER PACKET 1 PACKET PO (08:49)
[2022-08-03] MEDS: POTASSIUM CHLORIDE 20 MEQ TABLET.ER PO (08:49)
[2022-08-03] MEDS: PANTOPRAZOLE 40 MG TABLET PO (08:49)
[2022-08-03] MEDS: DULoxetine HCL 60 MG CAPSULE.DR PO (08:49)
[2022-08-03] MEDS: SODIUM CHLORIDE 0.9% IV 1,000 ML 100 ML IV CONT (09:29)
[2022-08-03 11:33] VITALS: BP 145/75; PULSE 74; RESP 16; TEMP 36.3; O2SAT 99
[2022-08-03 11:34] VITALS: BP 131/66; PULSE 74; RESP 16; TEMP 36.2; O2SAT 98
[2022-08-03 11:35] VITALS: BP 101/65; PULSE 74; RESP 16; TEMP 36.2; O2SAT 99
--- NOTE | 2022-08-03 11:40 | P.DS_ITS ---
DS: Admitting Diagnosis Discharge Date 08/03/22 1312 Admitting Diagnosis Nausea and vomiting Orthostatic hypotension Acute renal insufficiencyIrritable bowel syndrome with constipation and diarrhea Dehydration DS: Discharge Diagnosis Discharge Diagnosis (1) Nausea and vomiting: Code(s): R11.2 - Nausea with vomiting, unspecified Status: Acute Assessment and Plan: Patient arrived to hospital on 08/01/2022 with complaints of nausea vomiting. Patient states that his last episode of vomiting was 07/30/2022. Patient states that he did not ingest any food or drink since that day due to fear of vomiting again. * treated with IV fluids * GI has been consulted * IV Pepcid given * IV Zofran PRN. * CT abdomen pelvis negative for acute pathology. * Most likely viral illness. Dehydration could potentially have caused onset/continuation of nausea vomiting * Possible side effect of Trulicity and gastroparesis. (2) Orthostatic hypotension: Code(s): I95.1 - Orthostatic hypotension Status: Acute Assessment and Plan: * Orthostatics ordered Q shift. Secondary to dehydration. * Sodium is slightly low at 132 on admission * sodium increased to normal with fluid resuscitation. * vitals stable on discharge. (3) Acute renal insufficiency: Code(s): N28.9 - Disorder of kidney and ureter, unspecified Status: Acute Assessment and Plan: * Continue with IV fluids * creatinine is 1.4. It had been up to 2.3 a couple years ago. * The daughter states that this diarrhea has been chronic. She stated that he has IBS with mixed constipation and diarrhea. * Hold nephrotoxic medication. * Improved with iV hydration. (4) Type 2 diabetes mellitus: Code(s): E11.9 - Type 2 diabetes mellitus without complications Status: Chronic Assessment and Plan: * Holding metformin due to the acute on chronic renal failure. * Accu-Cheks AC and HS with hypoglycemic protocol. * A1c 8.8% elevated. 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 * continue to monitor electrolytes and check magnesium level. * the patient was ordered MiraLax from his primary care doctor's office. The patient stated he could not tolerate taking it is the cause him to have severe diarrhea. * Recommended high-fiber diet and metamucil daily. * Explained to the patient that he could drink Gatorade 0 when he becomes dehydrated at home. * Stool cultures negative (6) Dehydration: Code(s): E86.0 - Dehydration Status: Resolved Assessment and Plan: Secondary to nausea and vomiting. Improved (7) Hypothyroidism: Qualifiers: Hypothyroidism type: acquired Qualified Code(s): E03.9 - Hypothyroidism, unspecified Code(s): E03.9 - Hypothyroidism, unspecified Status: Chronic Assessment and Plan: continued levothyroxine. TSH 2.050 (8) Sleep-disordered breathing: Code(s): G47.30 - Sleep apnea, unspecified Status: Acute Assessment and Plan: Daughter reports the patient has episodes of apnea while sleeping. Outpatient sleep study ordered at [facility] and to be followed by PCP. DS: Summary Hospital Course Reason for hospitalization: N/V/D Hospital Course: Yash Kowalski is an 86-year-old male patient wh
--- NOTE | 2022-08-03 11:40 | PM.DS ---
DS: Admitting Diagnosis Discharge Date 08/03/22 1312 Admitting Diagnosis Nausea and vomiting Orthostatic hypotension Acute renal insufficiencyIrritable bowel syndrome with constipation and diarrhea Dehydration DS: Discharge Diagnosis Discharge Diagnosis (1) Nausea and vomiting: Code(s): R11.2 - Nausea with vomiting, unspecified Status: Acute Assessment and Plan: Patient arrived to hospital on 08/01/2022 with complaints of nausea vomiting. Patient states that his last episode of vomiting was 07/30/2022. Patient states that he did not ingest any food or drink since that day due to fear of vomiting again. treated with IV fluids GI has been consulted IV Pepcid given IV Zofran PRN. CT abdomen pelvis negative for acute pathology. Most likely viral illness. Dehydration could potentially have caused onset/continuation of nausea vomiting Possible side effect of Trulicity and gastroparesis. (2) Orthostatic hypotension: Code(s): I95.1 - Orthostatic hypotension Status: Acute Assessment and Plan: Orthostatics ordered Q shift. Secondary to dehydration. Sodium is slightly low at 132 on admission sodium increased to normal with fluid resuscitation. vitals stable on discharge. (3) Acute renal insufficiency: Code(s): N28.9 - Disorder of kidney and ureter, unspecified Status: Acute Assessment and Plan: Continue with IV fluids creatinine is 1.4. It had been up to 2.3 a couple years ago. The daughter states that this diarrhea has been chronic. She stated that he has IBS with mixed constipation and diarrhea. Hold nephrotoxic medication. Improved with iV hydration. (4) Type 2 diabetes mellitus: Code(s): E11.9 - Type 2 diabetes mellitus without complications Status: Chronic Assessment and Plan: Holding metformin due to the acute on chronic renal failure. Accu-Cheks AC and HS with hypoglycemic protocol. A1c 8.8% elevated. 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 continue to monitor electrolytes and check magnesium level. the patient was ordered MiraLax from his primary care doctor's office. The patient stated he could not tolerate taking it is the cause him to have severe diarrhea. Recommended high-fiber diet and metamucil daily. Explained to the patient that he could drink Gatorade 0 when he becomes dehydrated at home. Stool cultures negative (6) Dehydration: Code(s): E86.0 - Dehydration Status: Resolved Assessment and Plan: Secondary to nausea and vomiting. Improved (7) Hypothyroidism: Qualifiers: Hypothyroidism type: acquired Qualified Code(s): E03.9 - Hypothyroidism, unspecified Code(s): E03.9 - Hypothyroidism, unspecified Status: Chronic Assessment and Plan: continued levothyroxine. TSH 2.050 (8) Sleep-disordered breathing: Code(s): G47.30 - Sleep apnea, unspecified Status: Acute Assessment and Plan: Daughter reports the patient has episodes of apnea while sleeping. Outpatient sleep study ordered at [facility] and to be followed by PCP. DS: Summary Hospital Course Reason for hospitalization: N/V/D Hospital Course: Yash Kowalski is an 86-year-old male patient who lives home alone.? The patient presented to the ED for evaluation of nausea and vomiting for 2 days with numerous episodes of emesis during that time.? He has chronic diarrhea.? He has a history of irritable bowel syndrome with both diarrhea and constipation.? The patient was prescribed MiraLax twice a day and he stated that was too much for him.? The patient has severe abdominal cramping but denied any fever or chills.? No shortness of breath.? He has been feeling
[2022-08-03 12:11] LABS: Glucose Point of Care 256 mg/dl (65-105)
[2022-08-03] MEDS: INSULIN ASPART (*BKC) 100 UNITS/ML SUB-Q (12:43)
== END 2022-08-03 14:21 | disposition home or self-care (01) | DRG 866 ==
LOC: ANHED 12:09 → ANH2MED 12:29
PROVIDERS: Internal Medicine Critical Care Medicine; Nurse Practitioner; Admitting Provider Family Medicine; Emergency Provider Emergency Medicine; PCP Family Medicine; Visit Provider Nurse Practitioner Family
DX: B34.9 Viral infection, unspecified (principal); E11.43 Type 2 diabetes mellitus with diabetic autonomic (poly)neuropathy; K31.84 Gastroparesis; E86.0 Dehydration; R11.2 Nausea with vomiting, unspecified; T38.3X5A Adverse effect of insulin and oral hypoglycemic [antidiabetic] drugs, initial encounter; I95.1 Orthostatic hypotension; K58.2 Mixed irritable bowel syndrome; Z20.822 Contact with and (suspected) exposure to COVID-19; M19.90 Unspecified osteoarthritis, unspecified site; I12.9 Hypertensive chronic kidney disease with stage 1 through stage 4 chronic kidney disease, or unspecified chronic kidney disease; E11.22 Type 2 diabetes mellitus with diabetic chronic kidney disease; N18.30 Chronic kidney disease, stage 3 unspecified; E78.5 Hyperlipidemia, unspecified; E03.9 Hypothyroidism, unspecified; G47.30 Sleep apnea, unspecified; Z79.84 Long term (current) use of oral hypoglycemic drugs; Z98.42 Cataract extraction status, left eye; Z98.41 Cataract extraction status, right eye; Z90.49 Acquired absence of other specified parts of digestive tract; Z87.891 Personal history of nicotine dependence
CPT/HCPCS: 36415; 74177; 76775; 80053; 81001; 82948; 83036; 83605; 83615; 83690; 83735; 84100; 84443; 85025; 85027; 87045; 87269; 87272; 87427; 87493; 87636; 89055; 96361; 96372; 96374; 96375; 96376; 97161; 97165; 97530; 97535; 99285; A9270; G0378; J1650; J1815; J2405; J7030; Q9967

== ENCOUNTER 2022-08-28 08:03 | Emergency (ER) | payer MEDICARE, SELFPAY ==
--- NOTE | ~2022-08-28 | XR_ITS ---
EXAMINATION: XR chest 2V DATE: 08/28/2022 08:35 INDICATION: Cough and vomiting TECHNIQUE: AP and lateral views of the chest are obtained. COMPARISON: 11/09/2017 FINDINGS: The lungs are free of acute opacities. No pleural effusion or pneumothorax. The cardiomedia stinal silhouette is normal. There are bridging osteophytes at multiple levels in the spine, consiste nt with diffuse idiopathic skeletal hyperostosis (DISH). Surgical clips in the right upper quadrant a re likely from prior cholecystectomy. IMPRESSION: 1. No acute cardiopulmonary abnormality. Reviewed, dictated and finalized at location A. UP MAN
--- NOTE | ~2022-08-28 | CT_ITS ---
EXAMINATION: CT brain wo con INDICATION: Head injury COMPARISON: 04/06/2021 TECHNIQUE: Standard unenhanced head CT. The dose-length product (DLP) was 605.33 mGy-cm. The mA was a djusted according to patient size. Iterative reconstruction technique was employed. FINDINGS: There is no acute intraparenchymal hemorrhage. No evidence of mass lesion. No evidence of a cute infarction. There is moderate periventricular and subcortical hypodensity probably related to sm all vessel ischemic disease. There is moderate prominence of the sulci and ventricles related to cere bral atrophy. Intracranial calcified cerebral atherosclerosis is noted. There are no extra-axial natali ections. There is no mass effect or midline shift. Changes in the globes are likely from ocular lens surgery. Again noted are chronic wall thickening and opacification of the right maxillary sinus, cons istent with chronic sinusitis. IMPRESSION: 1. No acute intracranial abnormality. 2. Age related findings. 3. Chronic right maxillary sinusitis. Reviewed, dictated and finalized at location A. HELP DESK TECHNICIAN
--- NOTE | ~2022-08-28 | CT_ITS ---
EXAMINATION: CT abdomen pelvis w con INDICATION: Lower abdominal pain TECHNIQUE: Computed tomographic images of the abdomen and pelvis were obtained after the administrati on of 100 cc of Omnipaque 350 intravenous contrast. The dose-length product (DLP) was 1545.86 mGy-cm. Automated exposure control and iterative reconstruction technique were employed. COMPARISON: 08/01/2022 FINDINGS: Minimal dependent atelectasis is present in the lung bases. The heart size is normal. The g allbladder is surgically absent. The liver, spleen, pancreas, and adrenal glands are normal. Hypoatte nuating lesions in the kidneys, measuring up to 5 mm on the right, are too small to characterize but likely represent cysts. No pathologically enlarged abdominal or pelvic lymph nodes are identified. No free intraperitoneal gas or evidence of bowel obstruction. Colonic diverticulosis is present without evidence of diverticulitis. There are posterior diverticula of the urinary bladder. A moderate volum e of colonic stool is present. There is severe lumbar spondylosis. IMPRESSION: 1. No CT correlate for the patient's symptoms. 2. Diverticulosis without diverticulitis. Reviewed, dictated and finalized at location A. R TECHNICIAN
[2022-08-28 08:02] VITALS: BP 142/78; PULSE 82; RESP 16; TEMP 36.8; O2SAT 94
--- NOTE | 2022-08-28 08:11 | ECG_ITS ---
Measurements Intervals [place] Rate: 70 P: 16 OK: 235 QRS: -33 QRSD: 76 T: 0 QT: 235 QTc: 255 Interpretive Statements SINUS RHYTHM WITH FIRST DEGREE AV BLOCK WITH OCCASIONAL SUPRAVENTRICULAR PREMATURE COMPLEXES INFERIOR MYOCARDIAL INFARCTION , OF INDETERMINATE AGE [40+ ms Q WAVE AND/OR ST/T ABNORMALITY IN II/aVF] NONSPECIFIC T-WAVE ABNORMALITY ABNORMAL ECG NO PREVIOUS ECG AVAILABLE FOR COMPARISON Electronically Signed On 08-28-2022 11:32:58 [employer]OURNEY[employer] by Duglas Casas M.D.
--- NOTE | 2022-08-28 08:14 | ED.NAVMDI ---
HPI - Nausea/Vomiting/Diarrhea General Chief complaint: Nausea/Vomiting/Diarrhea Stated complaint: n/v Source: patient, EMS, RN notes reviewed and old records reviewed Mode of arrival: EMS Limitations: no limitations History of Present Illness HPI Narrative: This is an 86 year old male who presents for evaluation of nausea and vomiting for 3 days. He states that he fell last and he hit his head. He reports intermittent headache since that fall. He started having nausea and vomiting on Monday. He reports initially he had 1 episode of brown emesis so he thought it was something that he ate. He has been having bilious emesis every since and he reports having multiple episodes of emesis today. He has been unable to eat or drink but he states he has been able to take his medications. He is also complaining of intermittent dry cough and intermittent generalized abdominal pain for 3 days. He denies abdominal currently, but he states he has funny feeling in his abdomen. He denies diarrhea, and he has not had bowel movement in 3 days. He denies fever or chills. He has mild dizziness with ambulation. On review of his chart, patient was admitted to hospital a few weeks ago for similar complaint. Related Data Home Medications Medication Instructions Recorded Confirmed allopurinol 100 mg tablet 200 mg PO DAILY 10/22/19 08/01/22 amlodipine 10 mg tablet 10 mg PO DAILY@1700 10/22/19 08/01/22 duloxetine 60 mg capsule,delayed 60 mg PO DAILY 10/22/19 08/01/22 release glipizide 10 mg tablet 10 mg PO BID 10/22/19 08/01/22 metformin 500 mg tablet,extended 1,000 mg PO BID 10/22/19 08/01/22 release 24 hr potassium chloride 20 mEq 20 meq PO DAILY 10/22/19 08/01/22 tablet,extended release(part/cryst) levothyroxine 125 mcg tablet 125 mcg PO DAILY@0630 06/08/20 08/01/22 (Synthroid) magnesium oxide 250 mg PO DAILY 06/08/20 08/01/22 cyanocobalamin (vitamin B-12) 1,000 mcg PO 2XW 08/01/22 08/01/22 1,000 mcg tablet Allergies Allergy/AdvReac Type Severity Reaction Status Date / Time Sulfa (Sulfonamide Allergy Unknown Unknown Verified 02/05/23 08:14 Antibiotics) Review of Systems Review of Systems: All systems reviewed & are unremarkable except as noted in HPI and below Constitutional: Constitutional: Reports fatigue and Reports weakness Cardiovascular: Cardiovascular: Denies chest pain, Denies syncope, Denies rapid heart rate, Denies irregular heart rhythm, Denies leg edema and Denies dyspnea Respiratory: Respiratory: Denies chest congestion, Reports cough, Denies hemoptysis, Denies excessive phlegm production and Denies dyspnea Gastrointestinal: Gastrointestinal: Reports abdominal pain, Denies hematochezia, Denies diarrhea, Reports nausea and Reports vomiting Genitourinary: Genitourinary: Denies hematuria, Denies dysuria, Denies penile discharge and Denies testicular pain Musculoskeletal: Musculoskeletal: Denies joint swelling, Denies loss of height and Denies muscle weakness Neurologic: Denies syncope, Denies focal weakness and Denies weakness PMFSH Past Medical History Medical History Arthritis Chronic renal failure, stage 3 (moderate) Baseline creatinine is between 1.3 and 1.60. Esophageal stricture With several EGDs requiring dilatation. 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 History of hernia repair Umbilical hernia repair x2 with mesh. History of orthopedic surgery Repair of left elbow fracture. Family
[2022-08-28] MEDS: PANTOPRAZOLE SODIUM IV 40 MG VIAL IV PUSH (08:24)
[2022-08-28] MEDS: ONDANSETRON INJ 4 MG/2 ML VIAL IV PUSH (08:24)
[2022-08-28] MEDS: SODIUM CHLORIDE 0.9% IV 1,000 ML 999 ML IV CONT ×2 (08:26→10:09)
[2022-08-28 08:33] LABS: Basophils Percent Auto 0.3 % (0.2-1.2); Eosinophils Percent Auto 0.4 % (0-4.4); Hematocrit 40.4 % (42.0-52.0); Hemoglobin 13.8 g/dL (14.0-18.0); Immature Granulocyte Absolute 0.05 K/mm3 (0.00-0.031); Immature Granulocyte Percent A 0.6 % (0-0.5); Lymphocytes Absolute Auto 0.68 K/mm3 (0.9-3.2); Lymphocytes Percent Auto 7.5 % (18.3-44.2); Mean Corpuscular HGB Conc 34.2 g/dl (32-36); Mean Corpuscular Hemoglobin 32.2 pg (26-34); Mean Corpuscular Volume 94.4 fl (80-100); Mean Platelet Volume 10.7 fl (7.4-10.4); Monocytes Absolute Auto 0.9 K/mm3 (0.1-0.6); Monocytes Percent Auto 9.9 % (2.6-8.5); Neutrophils Absolute Auto 7.4 K/mm3 (1.3-6.7); Neutrophils Percent Auto 81.3 % (45.5-73.1); Platelet Count Result 211 k/mm3 (150-375); Red Blood Count 4.28 M/mm3 (4.6-6.20); Red Cell Distribution Width 13.2 % (11.5-14.5); White Blood Count 9.1 K/mm3 (4.5-10.0)
[2022-08-28 08:42] LABS: Lactic Acid Reflex 1.1 mmol/L (0.7-2.0); Lipase 35 U/L (23-300); Magnesium 1.8 mg/dL (1.6-2.3)
[2022-08-28 08:45] LABS: INR 1.1; Prothrombin Time 13.7 Seconds (11.1-14.7)
[2022-08-28 08:47] LABS: Partial Thromboplastin Time 29.8 SECONDS (22.3-36.8); Potassium 4.4 mmol/L (3.4-5.0)
[2022-08-28 08:57] LABS: Alanine Aminotransferase 36 U/L (6-50); Albumin Level 3.9 g/dL (3.5-5.1); Alkaline Phosphatase 108 U/L (38-126); Anion Gap 10 mmol/L (8-16); Aspartate Amino Transferase 32 U/L (17-59); Bilirubin,Total 1.2 mg/dL (0.2-1.3); Blood Urea Nitrogen 20 mg/dL (9-20); Calcium 9.2 mg/dL (8.4-10.2); Carbon Dioxide 25 mmol/L (22-30); Chloride 101 mmol/L (98-107); Estimated CRCL calculation 36 ml/min; Estimated Glomerular Filt Rate 45; Glucose 136 mg/dL (65-110); Sodium 136 mmol/L (137-145)
[2022-08-28 09:09] LABS: Influenza A QL RT-PCR Negative (Negative); Influenza B QL RT-PCR Negative (Negative); SARS-CoV-2 RNA PCR Negative
--- NOTE | 2022-08-28 09:20 | PC.NURSE ---
pt remains unable to void. ns continues infusing without difficulty.
[2022-08-28 10:17] LABS: Appearance Urine Slightly Cloudy (Clear); Bilirubin Urine 1+ (Negative); Blood Urine Trace-intact (Negative); Color Urine Yellow (Yellow); Glucose Urine UA 3+ mg/dL (Negative); Ketones Urine 1+ mg/dL (Negative); Leukocyte Esterase Ur Negative LEU/UL (Negative); Nitrate Urine Negative (Negative); Protein Urine 2+ mg/dL (Negative); Urobilinogen Urine 0.2 mg/dL (<2.0)
[2022-08-28 10:34] LABS: Mucus Urine Rare /lpf; RBC Urine 0-2 /hpf (0-2); Squamous Epithelial Cell Urine Few /hpf (Few); WBC Urine 0-3 /hpf
[2022-08-28 10:52] LABS: Add Urine Microscopic? YES
[2022-08-28 13:06] VITALS: BP 160/70; PULSE 81; RESP 20; O2SAT 95
== END 2022-08-28 13:30 ==
PROVIDERS: Emergency Provider General Practice; PCP Family Medicine
DX: R11.2 Nausea with vomiting, unspecified (principal); E86.0 Dehydration; Z20.822 Contact with and (suspected) exposure to COVID-19; E11.22 Type 2 diabetes mellitus with diabetic chronic kidney disease; I12.9 Hypertensive chronic kidney disease with stage 1 through stage 4 chronic kidney disease, or unspecified chronic kidney disease; N18.30 Chronic kidney disease, stage 3 unspecified; M19.90 Unspecified osteoarthritis, unspecified site; E78.5 Hyperlipidemia, unspecified; E03.9 Hypothyroidism, unspecified; K58.2 Mixed irritable bowel syndrome; Z98.42 Cataract extraction status, left eye; Z98.41 Cataract extraction status, right eye; Z87.891 Personal history of nicotine dependence; J32.0 Chronic maxillary sinusitis; K57.90 Diverticulosis of intestine, part unspecified, without perforation or abscess without bleeding; I44.0 Atrioventricular block, first degree; I49.1 Atrial premature depolarization; R94.31 Abnormal electrocardiogram [ECG] [EKG]; Z79.84 Long term (current) use of oral hypoglycemic drugs
CPT/HCPCS: 36415; 70450; 71046; 74177; 80053; 81001; 83605; 83690; 83735; 85025; 85610; 85730; 87636; 93005; 96361; 96374; 96375; 99284; C9113; J2405; J7030; Q9967

== ENCOUNTER 2022-09-20 12:53 | Emergency (ER) | payer MEDICARE, SELFPAY ==
[2022-09-20] VITALS (15 sets, daily range): BP systolic 132–151; BP diastolic 69–91; PULSE 70–88; RESP 12–19; TEMP 36.4–37.2; O2SAT 97–100
--- NOTE | ~2022-09-20 | CT_ITS ---
EXAMINATION: CT abdomen pelvis w con DATE: 09/20/2022 18:01 INDICATION: vomiting, LUQ/RUQ pain TECHNIQUE: Computed tomography (CT) of the abdomen and pelvis was performed with 100 mL Omnipaque-350 intravenous contrast. Automated exposure control and iterative reconstruction technique were employe d. The dose-length product was 1113.84 mGy-cm. COMPARISON: 08/28/2022. FINDINGS: Lower thorax: Aortic valve and coronary artery calcification. Senescent change in the lungs. Bilatera l basilar scar/atelectasis Liver: Subcentimeter right lobe hypodensity, too small to characterize. Biliary/Gallbladder: Gallbladder is absent. No bile duct dilation. Pancreas: No mass or duct dilation. Spleen: Normal. Adrenals:No mass. Kidneys: Bilateral hypodensities, too small to characterize but most likely represent cysts. Bilatera l perinephric stranding and cortical thinning. No suspicious mass, obstructing stone, or hydronephros is. GI tract: Small hiatal hernia. Mild distal esophageal and gastric wall edema No small or large bowel dilation. Appendix not visualized. Diverticulosis without diverticulitis. Mesentery/Peritoneum: No ascites, mass, or free air. Retroperitoneum: No mass. Atherosclerotic abdominal aortic and/or arterial calcifications. Pelvis: Mild bladder wall thickening likely due to prostatomegaly. Posterior urinary bladder divertic favian, including one at the insertion of the right ureter, without current ureteral obstruction. Soft Tissues: Soft tissues and body wall unremarkable. Bones: No acute osseous finding. IMPRESSION: Mild esophagitis/gastritis, no other acute abdominopelvic process detected. Reviewed, dictated and finalized at location K. ASSEMBLER
[2022-09-20 13:42] LABS: Basophils Percent Auto 0.3 % (0.2-1.2); Eosinophils Absolute Auto 0.1 K/mm3 (0-0.3); Eosinophils Percent Auto 1.8 % (0-4.4); Hematocrit 43.4 % (42.0-52.0); Hemoglobin 14.7 g/dL (14.0-18.0); Immature Granulocyte Absolute 0.02 K/mm3 (0.00-0.031); Immature Granulocyte Percent A 0.3 % (0-0.5); Lymphocytes Absolute Auto 0.95 K/mm3 (0.9-3.2); Lymphocytes Percent Auto 15.7 % (18.3-44.2); Mean Corpuscular HGB Conc 33.9 g/dl (32-36); Mean Corpuscular Hemoglobin 32.7 pg (26-34); Mean Corpuscular Volume 96.7 fl (80-100); Mean Platelet Volume 9.9 fl (7.4-10.4); Monocytes Absolute Auto 0.4 K/mm3 (0.1-0.6); Monocytes Percent Auto 6.6 % (2.6-8.5); Neutrophils Absolute Auto 4.6 K/mm3 (1.3-6.7); Neutrophils Percent Auto 75.3 % (45.5-73.1); Platelet Count Result 243 k/mm3 (150-375); Red Blood Count 4.49 M/mm3 (4.6-6.20); Red Cell Distribution Width 13.7 % (11.5-14.5); White Blood Count 6.1 K/mm3 (4.5-10.0)
[2022-09-20 13:52] LABS: Alanine Aminotransferase 33 U/L (6-50); Albumin Level 4.5 g/dL (3.5-5.1); Alkaline Phosphatase 98 U/L (38-126); Anion Gap 9 mmol/L (8-16); Aspartate Amino Transferase 41 U/L (17-59); Bilirubin,Total 0.9 mg/dL (0.2-1.3); Blood Urea Nitrogen 16 mg/dL (9-20); Calcium 9.5 mg/dL (8.4-10.2); Carbon Dioxide 25 mmol/L (22-30); Chloride 96 mmol/L (98-107); Estimated CRCL calculation 39 ml/min; Estimated Glomerular Filt Rate 45; Glucose 132 mg/dL (65-110); Lipase 56 U/L (23-300); Potassium 4.2 mmol/L (3.4-5.0); Sodium 130 mmol/L (137-145)
--- NOTE | 2022-09-20 16:59 | ED.NAVMDI ---
HPI - Nausea/Vomiting/Diarrhea General Chief complaint: Nausea/Vomiting/Diarrhea Stated complaint: nausea and vomiting - multiple trips to the ER Time Seen by Provider: 09/20/22 16:55 Source: patient, family and old records reviewed Mode of arrival: ambulatory Limitations: no limitations History of Present Illness HPI Narrative: Patient is an 86 y/o male who presents to the ED with c/o vomiting. Patient reports having recurrent episodes of vomiting. He has had issues with this for the last few months, and reported having several episodes of vomiting over the last few days. He states he will vomit undigested food from previous days, entire pills. He states he does not necessarily feel nauseous before his vomiting. Patient has been seen in the ED for this several times. He has been seen by GI specialist, who thought symptoms may be related to acid reflux/hiatal hernia, and he was prescribed Protonix. Patient denies previous history of esophageal stricture, however, records indicate a history of esophageal web in 2018. Patient also reports having occasional epigastric pain and chronic issues with diarrhea, but denies fever, rectal bleeding, melena, hematemesis, urinary symptoms. Related Data Home Medications Medication Instructions Recorded Confirmed allopurinol 100 mg tablet 200 mg PO DAILY 10/22/19 08/01/22 amlodipine 10 mg tablet 10 mg PO DAILY@1700 10/22/19 08/01/22 duloxetine 60 mg capsule,delayed 60 mg PO DAILY 10/22/19 08/01/22 release glipizide 10 mg tablet 10 mg PO BID 10/22/19 08/01/22 metformin 500 mg tablet,extended 1,000 mg PO BID 10/22/19 08/01/22 release 24 hr potassium chloride 20 mEq 20 meq PO DAILY 10/22/19 08/01/22 tablet,extended release(part/cryst) levothyroxine 125 mcg tablet 125 mcg PO DAILY@0630 06/08/20 08/01/22 (Synthroid) magnesium oxide 250 mg PO DAILY 06/08/20 08/01/22 cyanocobalamin (vitamin B-12) 1,000 mcg PO 2XW 08/01/22 08/01/22 1,000 mcg tablet Allergies Allergy/AdvReac Type Severity Reaction Status Date / Time Sulfa (Sulfonamide Allergy Unknown Unknown Verified 09/20/22 12:55 Antibiotics) Review of Systems Review of Systems: CONSTITUTIONAL: Denies fever, chills, or sweats. CARDIOVASCULAR: Denies chest pain. RESPIRATORY: Denies cough or dyspnea. GASTROINTESTINAL: See HPI. GENITOURINARY: Denies dysuria or hematuria. All systems reviewed & are unremarkable except as noted in HPI and below PMFSH Past Medical History Medical History Arthritis Chronic renal failure, stage 3 (moderate) Baseline creatinine is between 1.3 and 1.60. Esophageal stricture With several EGDs requiring dilatation. 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 History of hernia repair Umbilical hernia repair x2 with mesh. History of orthopedic surgery Repair of left elbow fracture. Family History Family History Father Carotid artery stenosis Mother Patient's mother is She shortly after she fell and fractured her hip. Within 6 months of fracturing her hip failure to thrive Social History Social History Social History: The patient is and lives in independent living. He is retired from [employer] Surrogate decision maker: Candiceangelica Roche, daughter or Koko Kowalski, son. Code status: Full code. Smoking status: Former smoker Second
[2022-09-20] MEDS: SODIUM CHLORIDE 0.9% IV 1,000 ML 999 ML IV CONT ×2 (17:41→18:29)
[2022-09-20 18:21] LABS: Influenza A QL RT-PCR Negative (Negative); Influenza B QL RT-PCR Negative (Negative); SARS-CoV-2 RNA PCR Negative
[2022-09-20] MEDS: PANTOPRAZOLE SODIUM IV 40 MG VIAL IV PUSH (18:29)
[2022-09-20 18:43] LABS: Appearance Urine Clear (Clear); Bilirubin Urine Negative (Negative); Blood Urine Trace-intact (Negative); Color Urine Yellow (Yellow); Glucose Urine UA 2+ mg/dL (Negative); Ketones Urine Trace mg/dL (Negative); Leukocyte Esterase Ur Negative LEU/UL (Negative); Nitrate Urine Negative (Negative); Protein Urine 1+ mg/dL (Negative); Urobilinogen Urine 0.2 mg/dL (<2.0); pH Urine 5.5 (5.0-9.0)
[2022-09-20 18:58] LABS: Add Urine Microscopic? YES; Bacteria Urine Trace /hpf; Mucus Urine Rare /lpf; Squamous Epithelial Cell Urine Rare /hpf (Few); WBC Urine 0-3 /hpf
--- NOTE | 2022-09-20 20:04 | PC.NURSE ---
pt resting comfortably inbed, NAD, PO challenge started per ED provider request.
== END 2022-09-20 20:56 | disposition home or self-care (01) ==
PROVIDERS: Emergency Medicine; Emergency Provider Physician Assistant; PCP Family Medicine
DX: K29.70 Gastritis, unspecified, without bleeding (principal); K44.9 Diaphragmatic hernia without obstruction or gangrene; R11.2 Nausea with vomiting, unspecified; Z20.822 Contact with and (suspected) exposure to COVID-19; M19.90 Unspecified osteoarthritis, unspecified site; I12.9 Hypertensive chronic kidney disease with stage 1 through stage 4 chronic kidney disease, or unspecified chronic kidney disease; E11.22 Type 2 diabetes mellitus with diabetic chronic kidney disease; N18.30 Chronic kidney disease, stage 3 unspecified; Z79.84 Long term (current) use of oral hypoglycemic drugs; E78.5 Hyperlipidemia, unspecified
CPT/HCPCS: 36415; 74177; 80053; 81001; 83690; 85025; 87636; 96361; 96374; 99284; C9113; J7030; Q9967

== ENCOUNTER 2022-10-04 00:41 | Day surgery (SDC) | payer MEDICARE, SELFPAY ==
[2022-10-03 11:39] VITALS: BMI 29.9
[2022-10-04] MEDS: LACTATED RINGERS 1,000 ML 150 ML IV CONT (10:43)
[2022-10-04 10:44] LABS: Glucose Point of Care 193 mg/dl (65-105)
[2022-10-04 10:46] VITALS: BP 145/73; PULSE 77; RESP 20; TEMP 36.1; O2SAT 100
--- NOTE | 2022-10-04 11:02 | WPDHPUPDATE1 ---
History and Physical Update Update Date/Time: 10/04/22 11:02 Patient with a distant history of abdominal surgery. He has noted incisional hernia since July of 2022. Now complains of intermittent vomiting of undigested food. Patient gives a past medical history of distal esophageal web. Plan for EGD to assess for vomiting and whether web has recurred. If this fails to identify source of discomfort then small-bowel follow-through may be required. History and Physical has been reviewed, including an updated exam of the patient. There are NO changes in the patient's condition. Risks, benefits, and alternatives have been discussed and questions answered. Patient agrees to proceed with procedure.
--- NOTE | 2022-10-04 11:13 | WPDANESEPPF ---
Anes - Initial Pre Proc Eval Procedure: Operation Date: 10/04/22 11:30 Proposed Procedures p Esophagogastroduodenoscopy - Koko Rolle MD Date/Time: 10/04/22 11:13 Surgeon: Koko Rolle MD Pre Op Diagnosis: vomiting, early satiety, dysphagia Patient Data Age: 86 Gender: M Height: 1.78 m Weight: 94.3 kg Last Vital Signs Temp 97.0 F L 10/04/22 10:46 Pulse 77 10/04/22 10:46 Resp 20 10/04/22 10:46 BP 145/73 H 10/04/22 10:46 Pulse Ox 100 10/04/22 10:46 O2 Del Method Room Air 10/04/22 10:46 Allergies Allergy/AdvReac Type Severity Reaction Status Date / Time Sulfa (Sulfonamide Allergy Unknown Unknown Verified 10/04/22 10:44 Antibiotics) Home Medications Medication Instructions Recorded Confirmed Type allopurinol 100 mg tablet 200 mg PO DAILY 10/22/19 10/04/22 History amlodipine 10 mg tablet 10 mg PO DAILY@1700 10/22/19 10/04/22 History duloxetine 60 mg capsule,delayed 60 mg PO DAILY 10/22/19 10/04/22 History release glipizide 10 mg tablet 10 mg PO BID 10/22/19 10/04/22 History metformin 500 mg tablet,extended 1,000 mg PO BID 10/22/19 10/04/22 History release 24 hr potassium chloride 20 mEq 20 meq PO DAILY 10/22/19 10/04/22 History tablet,extended release(part/cryst) levothyroxine 125 mcg tablet 125 mcg PO DAILY@0630 06/08/20 10/04/22 History (Synthroid) magnesium oxide 250 mg PO DAILY 06/08/20 10/04/22 History cyanocobalamin (vitamin B-12) 1,000 mcg PO 2XW 08/01/22 10/04/22 History 1,000 mcg tablet empagliflozin 10 mg tablet 10 mg PO QAM #30 tabs 08/03/22 10/04/22 Rx metoprolol succinate 25 mg 12.5 mg PO DAILY@1700 #30 tabs 08/03/22 10/04/22 Rx tablet,extended release 24 hr psyllium husk (aspartame) 3.4 gram 1 packet PO QAM #30 ea 08/03/22 10/04/22 Rx oral powder packet (Metamucil Fiber Singles) ondansetron 4 mg disintegrating 4 mg PO Q6H PRN nausea and 08/28/22 10/04/22 Rx tablet vomiting #20 tabs pantoprazole 40 mg tablet,delayed 40 mg PO BID #60 tabs 09/29/22 10/04/22 Rx release ciprofloxacin HCl 500 mg tablet 500 mg PO Q12H 10/03/22 10/04/22 History dulaglutide 4.5 mg/0.5 mL 4.5 mg subcut WEEKLY 10/03/22 10/04/22 History subcutaneous pen injector (Trulicity) Laboratory Tests 10/04/22 10:41 POC Capillary Glucose 193 mg/dl H mg/dl (65-105) Patient hx anesthesia problems: none Family hx anesthesia problems: none Results Review: All pre-operative results and documents have been reviewed as part of the pre-operative evaluation. [facility] Past Medical History Medical History (Updated 09/29/22 @ 10:41 by Ledy Noland, VALERIO) Arthritis Chronic renal failure, stage 3 (moderate) Baseline creatinine is between 1.3 and 1.60. Dysphagia Esophageal stricture With several EGDs requiring dilatation. 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 History of hernia repair Umbilical hernia repair x2 with mesh. History of orthopedic surgery Repair of left elbow fracture. Family History Family History Father Carotid artery stenosis Mother Patient's mother is She shortly after she fell and fractured her hip. Within 6 months of fracturing her hip failure to thrive Social History Social History Social History: The patient is and lives in independent living. He is retired from [employer] Surrogate decision maker: Candice Oviedo
[2022-10-04 12:35] VITALS: BP 118/63; PULSE 64; RESP 15; O2SAT 100
[2022-10-04 12:45] VITALS: BP 122/63; PULSE 64; RESP 17; O2SAT 100
[2022-10-04 12:55] VITALS: BP 131/80; PULSE 61; RESP 15; O2SAT 100
== END 2022-10-04 13:13 | disposition home or self-care (01) ==
PROVIDERS: PCP Family Medicine; Visit Provider Internal Medicine Gastroenterology
PROC: 0DJ08ZZ Inspection of Upper Intestinal Tract, Via Natural or Artificial Opening Endoscopic (ICD-10-PCS; CPT 43235; principal; 2022-10-04 11:30)
DX: R11.10 Vomiting, unspecified (principal); R13.10 Dysphagia, unspecified; K22.2 Esophageal obstruction; K58.2 Mixed irritable bowel syndrome; I10 Essential (primary) hypertension; E78.5 Hyperlipidemia, unspecified; E03.9 Hypothyroidism, unspecified; E11.9 Type 2 diabetes mellitus without complications
CPT/HCPCS: 43251; 43450; 82948; 88305; J2704; J7120

== ENCOUNTER 2022-10-31 08:20 | Outpatient (CLI) | payer MEDICARE, SELFPAY ==
--- NOTE | ~2022-10-31 | XR_ITS ---
EXAMINATION: XR small bowel follow through DATE: 10/31/2022 10:38 INDICATION: Vomiting, unspecified. TECHNIQUE: Oral contrast was administered, and a time course of radiographs of the abdomen was obtain ed. Fluoroscopy of the small bowel was performed. Fluoroscopy exposure time was 0.3 minutes. The tota l number of images was 13. COMPARISON: CT abdomen and pelvis 09/20/2022 FINDINGS: There are no dilated loops of bowel. There is no mass or stricture. The terminal ileum is normal. Tra nsit time from the stomach to proximal colon was approximately 1 hour. Surgical clips in the right up per quadrant are likely from cholecystectomy. IMPRESSION: 1. Normal small bowel series. Reviewed, dictated and finalized at location A.
== END 2022-10-31 08:21 | disposition home or self-care (01) ==
PROVIDERS: PCP Family Medicine; Visit Provider Internal Medicine Gastroenterology
DX: R11.10 Vomiting, unspecified (principal)
CPT/HCPCS: 74250

== ENCOUNTER 2022-11-15 07:27 | Outpatient (CLI) | payer MEDICARE, SELFPAY ==
--- NOTE | ~2022-11-15 | NM_ITS ---
EXAM: NM gastric emptying study DATE: 11/15/2022 12:41 INDICATION: Vomiting. Early satiety. TECHNIQUE: A gastric emptying study was performed using the methodology of Marlyn FOSTER, et al. J Nucl Med 2007; 48:568-572. The patient was given a meal consisting of 2 scrambled eggs labeled with 1.009 mCi Tc-99m sulfur colloid, 2 slices of toast, two packages of jam, and approximately 120 mL of water . Simultaneous anterior and posterior 1-min images of the abdomen were obtained with the patient supi ne at multiple time points over a total period of 4 hours. The geometric mean of anterior and posteri or views was determined, and the percentage retention was calculated for each time point. COMPARISON: CT abdomen and pelvis 09/20/2022 FINDINGS: Gastric retention of the radiotracer-labeled meal was 67%, 33%, and 25% at the 1-hour, 2-h our, and 4-hour time points, respectively. With this technique, apparent rapid gastric emptying is tubbs ggested by <30% gastric retention at 1 hour. Delayed gastric emptying is defined by gastric retention of >90% at 1 hour, >60% retention at 2 hours, or >10% retention at 4 hours. IMPRESSION: 1. Delayed gastric emptying. Reviewed, dictated and finalized at location A.
== END 2022-11-15 07:28 | disposition home or self-care (01) ==
PROVIDERS: PCP Family Medicine; Visit Provider Nurse Practitioner
DX: K30 Functional dyspepsia (principal)
CPT/HCPCS: 78264; A9541

== ENCOUNTER 2022-11-18 18:07 | Emergency (ER) | payer MEDICARE, SELFPAY ==
--- NOTE | ~2022-11-18 | CT_ITS ---
EXAMINATION: CT brain wo con DATE: 11/18/2022 18:46 INDICATION: Head injury. TECHNIQUE: Computed tomography (CT) of the head was performed without intravenous contrast. The mA wa s adjusted according to patient size. Iterative reconstruction technique was employed. The dose-lengt h product was 529.67 mGy-cm. COMPARISON: Head CT 08/28/2022 FINDINGS: There is diffuse brain volume loss. There are scattered areas of low attenuation in the cer ebral white matter. There is no intracranial hemorrhage, acute infarction, or abnormal intracranial m ass lesion. The ventricles are normal in size. There are likely changes of ocular lens replacement tubbs rgeries. There is mucosal thickening in right maxillary sinus. There is thickening sclerosis of the w alls of right maxillary sinus, consistent with chronic sinusitis. The mastoid air cells are normal. IMPRESSION: 1. Stable mild nonspecific cerebral white matter disease, which likely represents chronic small vesse l ischemic disease. Reviewed, dictated and finalized at location E. IMPRESSION: 1. Stable mild nonspecific cerebral white matter disease, which likely represen ts chronic small vessel ischemic disease.
[2022-11-18 18:23] VITALS: BP 100/64; PULSE 93; TEMP 36.2; O2SAT 99
--- NOTE | 2022-11-18 22:50 | ED.GENADULT ---
HPI - General Adult General Chief complaint: Head Injury Stated complaint: head injury Time Seen by Provider: 11/18/22 22:07 Source: patient Mode of arrival: ambulatory Limitations: no limitations History of Present Illness HPI narrative: This is a 86-year-old male who presents to the ED via EMS from [facility] for chief complaint of head injury occurring just prior to arrival. Patient states that he missed the grab bar while in the shower and fell backwards onto his right hip, shoulder and head. Reports mild pain in the posterior scalp where he has a laceration. Denies pain in the shoulder or hip at this time. Denies any further site of pain or injury. Denies LOC. Denies blood thinners. He is able to recall the entire event of the injury and after. Denies numbness, weakness, speech changes, vision changes. He is here with his family member who feels that he is at his baseline which is alert and oriented x4. Related Data Home Medications Medication Instructions Recorded Confirmed allopurinol 100 mg tablet 200 mg PO DAILY 10/22/19 11/07/22 amlodipine 10 mg tablet 10 mg PO DAILY@1700 10/22/19 11/07/22 duloxetine 60 mg capsule,delayed 60 mg PO DAILY 10/22/19 11/07/22 release glipizide 10 mg tablet 10 mg PO BID 10/22/19 11/07/22 metformin 500 mg tablet,extended 1,000 mg PO BID 10/22/19 11/07/22 release 24 hr potassium chloride 20 mEq 20 meq PO DAILY 10/22/19 11/07/22 tablet,extended release(part/cryst) levothyroxine 125 mcg tablet 125 mcg PO DAILY@0630 06/08/20 11/07/22 (Synthroid) magnesium oxide 250 mg PO DAILY 06/08/20 11/07/22 cyanocobalamin (vitamin B-12) 1,000 mcg PO 2XW 08/01/22 11/07/22 1,000 mcg tablet dulaglutide 4.5 mg/0.5 mL 4.5 mg subcut WEEKLY 10/03/22 11/07/22 subcutaneous pen injector (Trulicity) Allergies Allergy/AdvReac Type Severity Reaction Status Date / Time Sulfa (Sulfonamide Allergy Unknown Unknown Verified 11/18/22 18:31 Antibiotics) Review of Systems Review of Systems: CONSTITUTIONAL: Denies fever, chills, or sweats. EYES: Denies visual changes, redness, or discharge. ENT: Denies rhinorrhea, congestion, sore throat, or otalgia. CARDIOVASCULAR: Denies chest pain, palpitations, or edema. RESPIRATORY: Denies cough or dyspnea. GASTROINTESTINAL: Denies abdominal pain, nausea, vomiting, or diarrhea. GENITOURINARY: Denies dysuria or hematuria. SKIN: See HPI MUSCULOSKELETAL: Denies back pain, joint pain, or myalgia. NEUROLOGIC: See HPI PSYCHIATRIC: Denies anxiety or depression. [facility] Past Medical History Medical History (Updated 11/18/22 @ 23:28 by Hector Samuel PA-C) Arthritis Chronic renal failure, stage 3 (moderate) Baseline creatinine is between 1.3 and 1.60. Dysphagia Esophageal stricture With several EGDs requiring dilatation. 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 History of hernia repair Umbilical hernia repair x2 with mesh. History of orthopedic surgery Repair of left elbow fracture. Family History Family History Father Carotid artery stenosis Mother Patient's mother is She shortly after she fell and fractured her hip. Within 6 months of fracturing her hip failure to thrive Social History Social History Social History: The patient is and lives in independent l
[2022-11-18] MEDS: TETANUS,DIPHTHERIA,AC PERTUSSIS ADULT (0.5 ML) BOOSTRIX IM (22:59)
[2022-11-18 23:00] VITALS: BP 126/69; PULSE 80; RESP 18; TEMP 36.6; O2SAT 100
[2022-11-19] MEDS: CEPHALEXIN 500 MG CAPSULE PO (00:04)
[2022-11-19 00:18] VITALS: BP 137/83; PULSE 82; RESP 15; TEMP 36.6; O2SAT 98
== END 2022-11-19 00:19 ==
PROVIDERS: Emergency Provider Physician Assistant; PCP Family Medicine
DX: S01.01XA Laceration without foreign body of scalp, initial encounter (principal); Z23 Encounter for immunization; E11.22 Type 2 diabetes mellitus with diabetic chronic kidney disease; I12.9 Hypertensive chronic kidney disease with stage 1 through stage 4 chronic kidney disease, or unspecified chronic kidney disease; N18.30 Chronic kidney disease, stage 3 unspecified; E78.5 Hyperlipidemia, unspecified; E03.9 Hypothyroidism, unspecified; K58.2 Mixed irritable bowel syndrome; M19.90 Unspecified osteoarthritis, unspecified site; Z98.42 Cataract extraction status, left eye; Z98.41 Cataract extraction status, right eye; Z90.49 Acquired absence of other specified parts of digestive tract; Z87.891 Personal history of nicotine dependence; Z79.85 Long-term (current) use of injectable non-insulin antidiabetic drugs; Z79.84 Long term (current) use of oral hypoglycemic drugs; W18.2XXA Fall in (into) shower or empty bathtub, initial encounter
CPT/HCPCS: 12001; 70450; 90471; 90715; 99284; A9270

== ENCOUNTER 2023-02-01 13:47 | Emergency (ER) | payer MEDICARE, SELFPAY ==
[2023-02-01 13:47] VITALS: BP 169/87; PULSE 83; RESP 13; TEMP 36.6; O2SAT 97
[2023-02-01 13:55] VITALS: PULSE 73
[2023-02-01 14:13] LABS: Basophils Percent Auto 0.5 % (0.2-1.2); Eosinophils Absolute Auto 0.1 K/mm3 (0-0.3); Eosinophils Percent Auto 1.4 % (0-4.4); Hematocrit 39.1 % (42.0-52.0); Immature Granulocyte Absolute 0.07 K/mm3 (0.00-0.031); Immature Granulocyte Percent A 0.8 % (0-0.5); Lymphocytes Absolute Auto 1.24 K/mm3 (0.9-3.2); Lymphocytes Percent Auto 14.4 % (18.3-44.2); Mean Corpuscular HGB Conc 33.2 g/dl (32-36); Mean Corpuscular Hemoglobin 33.8 pg (26-34); Mean Corpuscular Volume 101.6 fl (80-100); Mean Platelet Volume 11.4 fl (7.4-10.4); Monocytes Absolute Auto 0.7 K/mm3 (0.1-0.6); Monocytes Percent Auto 7.7 % (2.6-8.5); Neutrophils Absolute Auto 6.5 K/mm3 (1.3-6.7); Neutrophils Percent Auto 75.2 % (45.5-73.1); Platelet Count Result 302 k/mm3 (150-375); Red Blood Count 3.85 M/mm3 (4.6-6.20); Red Cell Distribution Width 14.4 % (11.5-14.5); White Blood Count 8.6 K/mm3 (4.5-10.0)
[2023-02-01 14:24] LABS: Alanine Aminotransferase 27 U/L (6-50); Albumin Level 4.5 g/dL (3.5-5.1); Alkaline Phosphatase 79 U/L (38-126); Anion Gap 13 mmol/L (8-16); Aspartate Amino Transferase 28 U/L (17-59); Bilirubin,Total 0.6 mg/dL (0.2-1.3); Blood Urea Nitrogen 30 mg/dL (9-20); Calcium 9.4 mg/dL (8.4-10.2); Carbon Dioxide 20 mmol/L (22-30); Chloride 102 mmol/L (98-107); Estimated CRCL calculation 30 ml/min; Estimated Glomerular Filt Rate 38; Glucose 144 mg/dL (65-110); Sodium 135 mmol/L (137-145)
[2023-02-01] MEDS: SODIUM CHLORIDE 0.9% IV 1,000 ML 999 ML IV CONT ×2 (14:42→17:43)
[2023-02-01 15:53] VITALS: BP 99/86; PULSE 108; RESP 27; O2SAT 93
[2023-02-01 15:56] VITALS: BP 103/89; PULSE 111; RESP 19; O2SAT 89
[2023-02-01 16:00] VITALS: BP 167/72; PULSE 70; RESP 16; TEMP 36.4; O2SAT 98
[2023-02-01 17:00] VITALS: BP 164/75; PULSE 68; RESP 16; O2SAT 99
--- NOTE | 2023-02-01 17:58 | ED.GENADULT ---
HPI - General Adult General Chief complaint: Unspecified Stated complaint: sent by PCP for fluids Time Seen by Provider: 02/01/23 14:02 History of Present Illness HPI narrative: 87-year-old male presented the ED for evaluation of decreased p.o. intake and weight loss. Patient was evaluated by the physician at [place] and was sent in to the ED for rehydration. Related Data Home Medications Medication Instructions Recorded Confirmed allopurinol 100 mg tablet 200 mg PO DAILY 10/22/19 12/15/22 amlodipine 10 mg tablet 10 mg PO DAILY@1700 10/22/19 12/15/22 duloxetine 60 mg capsule,delayed 60 mg PO DAILY 10/22/19 12/15/22 release glipizide 10 mg tablet 10 mg PO BID 10/22/19 12/15/22 metformin 500 mg tablet,extended 1,000 mg PO BID 10/22/19 12/15/22 release 24 hr potassium chloride 20 mEq 20 meq PO DAILY 10/22/19 12/15/22 tablet,extended release(part/cryst) levothyroxine 125 mcg tablet 125 mcg PO DAILY@0630 06/08/20 12/15/22 (Synthroid) magnesium oxide 250 mg PO DAILY 06/08/20 12/15/22 cyanocobalamin (vitamin B-12) 1,000 mcg PO 2XW 08/01/22 12/15/22 1,000 mcg tablet dulaglutide 4.5 mg/0.5 mL 4.5 mg subcut WEEKLY 10/03/22 12/15/22 subcutaneous pen injector (Trulicity) Allergies Allergy/AdvReac Type Severity Reaction Status Date / Time Sulfa (Sulfonamide Allergy Unknown Unknown Verified 12/15/22 08:31 Antibiotics) Review of Systems Review of Systems: All systems reviewed & are unremarkable except as noted in HPI and below PMFSH Past Medical History Medical History (Updated 02/01/23 @ 18:20 by Víctor Carr MD) Arthritis Chronic renal failure, stage 3 (moderate) Baseline creatinine is between 1.3 and 1.60. Dizziness and giddiness Dysphagia Esophageal stricture With several EGDs requiring dilatation. 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 History of hernia repair Umbilical hernia repair x2 with mesh. History of orthopedic surgery Repair of left elbow fracture. Family History Family History Father Carotid artery stenosis Mother Patient's mother is She shortly after she fell and fractured her hip. Within 6 months of fracturing her hip failure to thrive Social History Social History Social History: The patient is and lives in independent living. He is retired from [employer] Surrogate decision maker: Candice Roche, daughter or Koko Kowalski, son. Code status: Full code. Smoking status: Former smoker Tobacco type: cigarettes Second hand tobacco smoke exposure: Yes Smoking end date: 07/24/1964 Alcohol intake: former Alcohol use details: social drinker in the past Substance use: never Substance use type: does not use Last use: Quit drinking in 1975. Lack of Transportation: No Lack of Food: Never True Current Housing: Decline to Answer Concerned About Future Housing: No Difficulty Paying Gas/Electric Bills: No Difficulty Paying for Meds: No Currently Unemployed: No Education: High School Diploma/GED Difficulty w/ Childcare or Family Care: No Living arrangements: long-term Additional living arrangements comments: resides in assisted living with spouse who has dementia; currently in care home for rehab Additional occupation/education comments:
[2023-02-01 18:06] LABS: Appearance Urine Cloudy (Clear); Bacteria Urine None Seen /hpf; Bilirubin Urine Negative (Negative); Blood Urine Negative (Negative); Color Urine Yellow (Yellow); Glucose Urine UA 3+ mg/dL (Negative); Ketones Urine Negative (Negative); Leukocyte Esterase Ur 2+ LEU/UL (Negative); Need Manual Microscopic Reviewed; Nitrate Urine Negative (Negative); Protein Urine Trace mg/dL (Negative); RBC Urine 0-2 /hpf (0-2); Specific Grav Ur 1.013 (1.001-1.035); Squamous Epithelial Cell Urine None seen /hpf (Few); Urobilinogen Urine 0.2 mg/dL (<2.0); WBC Urine >100 /hpf
[2023-02-01 18:10] LABS: Add Urine Microscopic? YES
== END 2023-02-01 19:17 ==
PROVIDERS: Emergency Provider Emergency Medicine; PCP Family Medicine
DX: E86.0 Dehydration (principal); N17.9 Acute kidney failure, unspecified; I12.9 Hypertensive chronic kidney disease with stage 1 through stage 4 chronic kidney disease, or unspecified chronic kidney disease; E11.22 Type 2 diabetes mellitus with diabetic chronic kidney disease; N18.30 Chronic kidney disease, stage 3 unspecified; E78.5 Hyperlipidemia, unspecified; Z79.84 Long term (current) use of oral hypoglycemic drugs; Z87.891 Personal history of nicotine dependence
CPT/HCPCS: 36415; 80053; 81001; 85025; 87086; 96360; 96361; 99283; J7030

== ENCOUNTER 2023-02-28 14:51 | Inpatient (IN) | payer MEDICARE, SELFPAY ==
[2023-02-28] VITALS (26 sets, daily range): BP systolic 134–174; BP diastolic 66–123; PULSE 67–88; RESP 14–24; TEMP 36.2–36.4; O2SAT 96–100
--- NOTE | ~2023-02-28 | XR_ITS ---
EXAMINATION: XR elbow RT min 3V DATE: 03/02/2023 15:36 INDICATION: Right elbow pain and decreased range of motion. TECHNIQUE: 3 views of right elbow were obtained. COMPARISON: None. FINDINGS: There is a fracture deformity of radial head with up to 2 mm impaction of the articular pratik face. There is mild elbow joint osteoarthritis. There is an elbow joint effusion. IMPRESSION: 1. Age-indeterminate radial head fracture deformity. 2. Mild elbow joint osteoarthritis. 3. Elbow joint effusion. Reviewed, dictated and finalized at location A.
--- NOTE | ~2023-02-28 | XR_ITS ---
EXAMINATION: XR chest 1V portable Exam Date/Time: 02/28/2023 17:30 CDT HISTORY: weakness Comparison: 08/28/2022. RESULT: Lines, tubes, and devices: Right upper quadrant surgical clips. Lungs and pleura: Low volumes with crowding. Streaky bibasilar opacities. Mild diffuse interstitial opacities. Cardiomediastinal silhouette: Stable. Other: No acute osseous or upper abdominal finding. IMPRESSION: Mild interstitial edema. Bibasilar atelectasis/scar. Reviewed, dictated and finalized at location K.
--- NOTE | ~2023-02-28 | XR_ITS ---
EXAMINATION: XR barium swallow modified DATE: 03/01/2023 10:09 INDICATION: Dysphagia. TECHNIQUE: The patient was given barium-containing material of multiple consistencies to swallow by t he speech pathologist while I performed fluoroscopy. Fluoroscopy exposure time was 2.9 minutes. The n umber of fluoroscopy images saved to the PACS was 1. Dose-area product was 1.832 Gy-cm^2. FINDINGS: There is reduced laryngeal elevation, reduced laryngeal adduction, reduced tongue base retraction, va llecular residue, laryngeal penetration, and aspiration. IMPRESSION: 1. Laryngeal penetration and aspiration. 2. Please refer to the speech therapy report for recommendations. Reviewed, dictated and finalized at location A.
--- NOTE | ~2023-02-28 | CT_ITS ---
EXAMINATION: CT brain wo con DATE: 02/28/2023 18:53 INDICATION: dizziness . TECHNIQUE: Computed tomography (CT) of the head was performed without intravenous contrast. The mA wa s adjusted according to patient size. Iterative reconstruction technique was employed. The dose-lengt h product was 681.00 mGy-cm. COMPARISON: 11/10/2022. FINDINGS: No acute intracranial hemorrhage or extra-axial fluid collection. No hydrocephalus, mass, or herniation. No acute ischemic infarct. Unremarkable dural venous sinus attenuation. No acute osseous abnormality. Right maxillary opacification with surrounding sclerosis, the remaining aerated spaces are clear. Moderate atrophy and mild chronic white matter change. Atherosclerotic intracranial calcification. Bi lateral lens replacements. IMPRESSION: No acute intracranial process. Chronic left maxillary sinusitis. Reviewed, dictated and finalized at location K.
--- NOTE | 2023-02-28 15:33 | ECG_ITS ---
Measurements Intervals [place] Rate: 67 P: 52 [place]: 255 QRS: -23 QRSD: 80 T: 9 QT: 406 QTc: 432 Interpretive Statements SINUS RHYTHM WITH MARKED SINUS ARRHYTHMIA WITH FIRST DEGREE AV BLOCK BORDERLINE LEFT AXIS DEVIATION [QRS AXIS < -20] NONSPECIFIC T-WAVE ABNORMALITY ABNORMAL ECG COMPARED TO ECG 08/28/2022 08:16:38 SINUS ARRHYTHMIA NOW PRESENT Electronically Signed On 03-01-2023 9:17:28 CDT by Duglas Casas M.D.
--- NOTE | 2023-02-28 16:25 | ED.WEAKNESS ---
HPI - Weakness General Chief complaint: Weakness Stated complaint: AMS, weakness Time Seen by Provider: 02/28/23 16:23 Source: EMS, RN notes reviewed, old records reviewed and other (alf staff) Mode of arrival: EMS Limitations: altered mental status History of Present Illness HPI Narrative: 87 years old white male came from detention because of hallucination, confusion, weakness started yesterday, got worse today. According to detention reported that patient not eating or drinking well over the last few days/weeks. Last fall was over 1 month ago. Patient is DNR. Patient normally awake, alert and oriented x 3, does walk with a walker and 1 respiratory care assistant. Related Data Home Medications Medication Instructions Recorded Confirmed allopurinol 100 mg tablet 200 mg PO DAILY 10/22/19 12/15/22 amlodipine 10 mg tablet 10 mg PO DAILY@1700 10/22/19 12/15/22 duloxetine 60 mg capsule,delayed 60 mg PO DAILY 10/22/19 12/15/22 release glipizide 10 mg tablet 10 mg PO BID 10/22/19 12/15/22 metformin 500 mg tablet,extended 1,000 mg PO BID 10/22/19 12/15/22 release 24 hr potassium chloride 20 mEq 20 meq PO DAILY 10/22/19 12/15/22 tablet,extended release(part/cryst) levothyroxine 125 mcg tablet 125 mcg PO DAILY@0630 06/08/20 12/15/22 (Synthroid) magnesium oxide 250 mg PO DAILY 06/08/20 12/15/22 cyanocobalamin (vitamin B-12) 1,000 mcg PO 2XW 08/01/22 12/15/22 1,000 mcg tablet dulaglutide 4.5 mg/0.5 mL 4.5 mg subcut WEEKLY 10/03/22 12/15/22 subcutaneous pen injector (Trulicity) Allergies Allergy/AdvReac Type Severity Reaction Status Date / Time Sulfa (Sulfonamide Allergy Unknown Unknown Verified 12/15/22 08:31 Antibiotics) Review of Systems Review of Systems: All systems reviewed & are unremarkable except as noted in HPI and below PMFSH Past Medical History Medical History Arthritis Chronic renal failure, stage 3 (moderate) Baseline creatinine is between 1.3 and 1.60. Dizziness and giddiness Dysphagia Esophageal stricture With several EGDs requiring dilatation. 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 History of hernia repair Umbilical hernia repair x2 with mesh. History of orthopedic surgery Repair of left elbow fracture. Family History Family History Father Carotid artery stenosis Mother Patient's mother is She shortly after she fell and fractured her hip. Within 6 months of fracturing her hip failure to thrive Social History Social History Social History: The patient is and lives in independent living. He is retired from [employer] Surrogate decision maker: Candice Roche, daughter or Koko Kowalski, son. Code status: Full code. Smoking status: Former smoker Tobacco type: cigarettes Second hand tobacco smoke exposure: Yes Smoking end date: 07/24/1964 Alcohol intake: former Alcohol use details: social drinker in the past Substance use: never Substance use type: does not use Last use: Quit drinking in 1975. Lack of Transportation: No Lack of Food: Never True Current Housing: Decline to Answer Concerned About Future Housing: No Difficulty Paying Gas/Electric Bills: No Difficulty Paying for Meds: No Currently Unemployed: No Education: H
[2023-02-28 16:34] LABS: Basophils Percent Auto 0.6 % (0.2-1.2); Eosinophils Absolute Auto 0.1 K/mm3 (0-0.3); Eosinophils Percent Auto 1.3 % (0-4.4); Hematocrit 33.2 % (42.0-52.0); Hemoglobin 10.9 g/dL (14.0-18.0); Immature Granulocyte Absolute 0.03 K/mm3 (0.00-0.031); Immature Granulocyte Percent A 0.4 % (0-0.5); Lymphocytes Absolute Auto 0.91 K/mm3 (0.9-3.2); Lymphocytes Percent Auto 13.1 % (18.3-44.2); Mean Corpuscular HGB Conc 32.8 g/dl (32-36); Mean Corpuscular Hemoglobin 33.7 pg (26-34); Mean Corpuscular Volume 102.8 fl (80-100); Mean Platelet Volume 10.9 fl (7.4-10.4); Monocytes Absolute Auto 0.7 K/mm3 (0.1-0.6); Monocytes Percent Auto 10.2 % (2.6-8.5); Neutrophils Absolute Auto 5.2 K/mm3 (1.3-6.7); Neutrophils Percent Auto 74.4 % (45.5-73.1); Platelet Count Result 246 k/mm3 (150-375); Red Blood Count 3.23 M/mm3 (4.6-6.20); Red Cell Distribution Width 13.3 % (11.5-14.5)
[2023-02-28 16:47] LABS: Alanine Aminotransferase 22 U/L (6-50); Alkaline Phosphatase 88 U/L (38-126); Anion Gap 6 mmol/L (8-16); Aspartate Amino Transferase 27 U/L (17-59); Bilirubin,Total 0.7 mg/dL (0.2-1.3); Blood Urea Nitrogen 30 mg/dL (9-20); Calcium 9.9 mg/dL (8.4-10.2); Carbon Dioxide 30 mmol/L (22-30); Chloride 95 mmol/L (98-107); Estimated CRCL calculation 23 ml/min; Estimated Glomerular Filt Rate 36; Glucose 173 mg/dL (65-110); Sodium 131 mmol/L (137-145)
[2023-02-28 16:58] LABS: Prothrombin Time 14.1 Seconds (11.1-14.7)
[2023-02-28 16:59] LABS: Partial Thromboplastin Time 28.8 SECONDS (22.3-36.8)
[2023-02-28 17:06] LABS: Troponin I < 0.012 ng/mL (0.000-0.034)
[2023-02-28] MEDS: SODIUM CHLORIDE 0.9% IV 1,000 ML 500 ML IV CONT (18:15)
[2023-02-28 18:44] LABS: Appearance Urine Turbid (Clear); Bacteria Urine 1+ /hpf; Bilirubin Urine Negative (Negative); Blood Urine 2+ (Negative); Budding Yeast Urine Present /hpf; Color Urine Yellow (Yellow); Glucose Urine UA 3+ mg/dL (Negative); Ketones Urine Trace mg/dL (Negative); Leukocyte Esterase Ur 3+ LEU/UL (Negative); Nitrate Urine Negative (Negative); Non Pathogenic Casts 0-2; Protein Urine 2+ mg/dL (Negative); RBC Urine 0-2 /hpf (0-2); Specific Grav Ur 1.018 (1.001-1.035); Squamous Epithelial Cell Urine Moderate /hpf (Few); Urobilinogen Urine 0.2 mg/dL (<2.0); WBC Urine >100 /hpf; pH Urine 5.5 (5.0-9.0)
--- NOTE | 2023-02-28 19:05 | PC.NURSE ---
This RN assumed care of patient. This RN took patient report from ANUPAM Mccarty.
[2023-02-28 19:07] LABS: Add Urine Microscopic? YES
--- NOTE | 2023-02-28 20:52 | PC.NURSE ---
This RN updated pt family member/ POA about room assignment.
--- NOTE | 2023-02-28 21:45 | ADMGEN ---
This patient, Yash Kowalski, was admitted to Medical Room 344-01. Patient/family oriented to hospital policies and general routines including ID bracelet, bed and alarms, visiting hours, pain management, procedures, bathroom and other care routines, personal items, smoking policy, room service/diet, and visiting hours. Information on how to activate the Rapid Response Team has been discussed. Patient/Family are encouraged to report perceived risks to care and to ask questions if they do not understand what they are told or what they should do.
--- NOTE | 2023-02-28 21:53 | PC.NURSE ---
Attempted to call patients daughter, DEONNA Harvey, to go over admission documentation and patients medications since he was not sent with any information from the [place] [facility]. Candice did not answer so a voicemail was left.
--- NOTE | 2023-02-28 22:14 | PM.IMHP ---
H&P: HPI History of Present Illness Date/Time: 02/28/23 22:40 Chief Complaint: Altered mental status and weakness. Narrative: This is an 87-year-old male with type 2 diabetes mellitus, hypertension, hypothyroidism, and chronic kidney disease who presented to the emergency department earlier today [facility] for evaluation of altered mental status and weakness. He is currently alert to self only and is unable to provide an accurate history and thus a majority of the following is obtained via a review of his EMR including review of the triage and ED physician notes and information obtained from his daughter. He apparently has not been eating or drinking well over the last week or more and he has gotten progressively more weak over the last several days. He is now exhibiting confusion and is apparently having hallucinations as well. He has not been started on any new medications recently that I can tell and his last fall was over a month ago. He was afebrile on arrival to the emergency department with stable and in fact elevated blood pressures. SpO2 was as low as 89% though he is currently on room air with oxygen saturations in the upper 90s. Preliminary workup was significant for a WBC count of 7.0, hemoglobin 10.9, MCV 102.8, sodium 131, chloride 95, BUN 30, creatinine 1.80, glucose 173. UA was positive for 2+ protein, 3+ glucose, trace ketones, 2+ blood, 3+ leukocyte esterase, greater than 100 WBC, 0 to 2 RBC, and 1+ bacteria with budding yeast. Brain CT showed no acute intracranial process with chronic left maxillary sinusitis. Chest x-ray showed mild interstitial edema and bibasilar atelectasis/scarring. He was given a L of normal saline and a g of ceftriaxone and he is being admitted in this setting for further treatment. At the time my evaluation he will wake to name though he does not really answer questions nor does he follow commands. He was able to tell me that he did not have any pain. The only other thing that he said during my visit was ?oh my? when I told him that he had pneumonia and that he was in the hospital. Of note the patient's daughter reports that he does have issues with swallowing on occasion. Review of Systems Review of Systems: Unable to be obtained accurately given clinical condition as detailed above. [facility] Past Medical History Medical History (Updated 02/28/23 @ 22:18 by Vicki Redman PA-C) Arthritis Chronic renal failure, stage 3 (moderate) Baseline creatinine is between 1.3 and 1.60. Dysphagia Esophageal stricture With several EGDs requiring dilatation. 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 History of hernia repair Umbilical hernia repair x2 with mesh. History of orthopedic surgery Repair of left elbow fracture. Family History Family History Father Carotid artery stenosis Mother Patient's mother is She shortly after she fell and fractured her hip. Within 6 months of fracturing her hip failure to thrive Social History Social History (Updated 02/28/23 @ 22:20 by Vicki Redman PA-C) Social History: Surrogate decision maker: Candice Melchor, daughter or Koko Kowalski, son. Code status: Do not resuscitate. Smoking status: Former smoker Tobacco type: cigarettes Second hand tobacco smoke exposure: Yes Smoking end date: 07/24/1964 Alcohol intake: former Alcohol use details: social drinker in the
[2023-02-28 22:55] LABS: Hemoglobin A1C 6.4 % (<5.7)
[2023-02-28] MEDS: SODIUM CHLORIDE 0.9% IV 1,000 ML 75 ML IV CONT (22:59)
[2023-02-28 23:43] LABS: Folic Acid 3.9 ng/mL (2.76->20)
[2023-03-01 01:00] VITALS: BMI 22.1
[2023-03-01 05:49] LABS: Hemoglobin 10.4 g/dL (14.0-18.0); Mean Corpuscular HGB Conc 32.5 g/dl (32-36); Mean Corpuscular Hemoglobin 33.7 pg (26-34); Mean Corpuscular Volume 103.6 fl (80-100); Mean Platelet Volume 10.9 fl (7.4-10.4); Platelet Count Result 210 k/mm3 (150-375); Red Blood Count 3.09 M/mm3 (4.6-6.20); Red Cell Distribution Width 13.2 % (11.5-14.5); White Blood Count 4.6 K/mm3 (4.5-10.0)
[2023-03-01 06:00] VITALS: BP 151/89; PULSE 86; RESP 14; TEMP 36.4; O2SAT 96
[2023-03-01 06:01] LABS: Anion Gap 7 mmol/L (8-16); Blood Urea Nitrogen 24 mg/dL (9-20); Carbon Dioxide 25 mmol/L (22-30); Chloride 100 mmol/L (98-107); Creatine Kinase 39 U/L (55-170); Estimated CRCL calculation 30 ml/min; Estimated Glomerular Filt Rate 41; Glucose 131 mg/dL (65-110); Potassium 3.9 mmol/L (3.4-5.0); Sodium 132 mmol/L (137-145)
[2023-03-01 06:02] LABS: Iron 53 ug/dL (49-181)
[2023-03-01 06:12] LABS: Percent Iron Saturation 22 % (20-50)
[2023-03-01 06:34] LABS: Thyroid Stimulating Hormone Reflex 0.016 uIU/mL (0.465-4.68)
[2023-03-01 07:27] LABS: Free T4 Free Thyroxine Reflex 2.61 ng/dL (0.78-2.19)
[2023-03-01 08:24] LABS: Glucose Point of Care 136 mg/dl (65-105)
[2023-03-01] MEDS: POTASSIUM CHLORIDE 20 MEQ ER TABLET PO (09:00)
[2023-03-01] MEDS: allopurinoL 100 MG TABLET 200 MG PO (09:00)
[2023-03-01] MEDS: PANTOPRAZOLE 40 MG TABLET PO (09:00)
[2023-03-01] MEDS: DULoxetine HCL 60 MG CAPSULE.DR PO (09:00)
[2023-03-01] MEDS: MAGNESIUM OXIDE 200 MG TABLET PO (09:01)
[2023-03-01] MEDS: EMPAGLIFLOZIN 10 MG TABLET PO (09:01)
[2023-03-01] MEDS: ENOXAPARIN 40 MG/0.4 ML SYRINGE SUB-Q (09:01)
[2023-03-01] MEDS: METOCLOPRAMIDE HCL 5 MG TABLET PO (09:01)
--- NOTE | 2023-03-01 10:48 | PCSTNOTE ---
Please refer to the Modified Barium Swallow Evaluation in the EMR.
--- NOTE | 2023-03-01 11:33 | PM.IMPN ---
Progress Note: A&P Assessment and Plan (1) Altered mental status: Qualifiers: Altered mental status type: unspecified Qualified Code(s): R41.82 - Altered mental status, unspecified Code(s): R41.82 - Altered mental status, unspecified Status: Acute Assessment and Plan: Likely due to a combination of infection (UTI) and dehydration. Brain CT did not show any acute findings. Continue to monitor closely. (2) Urinary tract infection: Qualifiers: Hematuria presence: without hematuria Urinary tract infection type: site unspecified Qualified Code(s): N39.0 - Urinary tract infection, site not specified Code(s): N39.0 - Urinary tract infection, site not specified Status: Acute Assessment and Plan: started on ceftriaxone, pending urine culture. (3) Dehydration: Code(s): E86.0 - Dehydration Status: Acute Assessment and Plan: Continue IV fluid rehydration (4) Type 2 diabetes mellitus: Code(s): E11.9 - Type 2 diabetes mellitus without complications Status: Chronic Assessment and Plan: Initiate sliding scale insulin, Accu-Cheks, and hypoglycemic protocol. (5) Hypertension: Code(s): I10 - Essential (primary) hypertension Status: Chronic Assessment and Plan: Blood pressure high. Increase metoprolol succinate to 25 mg p.o. daily. Continue amlodipine. (6) Hypothyroidism: Qualifiers: Hypothyroidism type: acquired Qualified Code(s): E03.9 - Hypothyroidism, unspecified Code(s): E03.9 - Hypothyroidism, unspecified Status: Chronic Assessment and Plan: Thyroid profile suggests hyperthyroid state. Will decrease levothyroxine to 100 mcg (7) Anemia: Code(s): D64.9 - Anemia, unspecified Status: Acute Assessment and Plan: Check iron studies as well as B12 and folates. (8) Dysphagia: Code(s): R13.10 - Dysphagia, unspecified Status: Acute Assessment and Plan: Modified barium swallow suggest silent aspiration. Dietary recommendations per speech therapist Subjective Date/time seen: 03/01/23 11:33 Interval history: No new issues overnight Review of Systems Review of Systems: ROS unobtainable: Yes unobtainable due to mental status Exam Narrative: General:? Well-developed, HEENT:?Wearing corrective lenses. PERRL, EOMI.? Sclerae anicteric.? Oral mucosa is tacky. Oropharynx not visualized. Neck:??Supple. No JVD. Respiratory:?Respirations are nonlabored. Lung sounds are diminished due to poor effort. Cardiovascular:??Regular rate and rhythm with S1-S2.? Soft systolic murmur at the upper sternal border. Gastrointestinal:??Abdomen is soft, nontender, and nondistended with positive bowel sounds. Skin:??Warm and dry.? Decrease in skin turgor. Extremities:??No cyanosis, clubbing, or edema. Neurological:?Awakes to voice. Alert to self. He does not answer any orientation questions. Cranial nerves 2-12 are grossly intact. No obvious facial asymmetry. Noted to move upper and lower extremities without obvious deficit. Psychiatric:?Confused. Objective Data Vital Signs Vital Signs: Vital Signs - 24 hr 02/28/23 14:52 02/28/23 16:40 02/28/23 16:10 Temperature 97.6 F Pulse Rate 88 72 Respiratory Rate 16 16 Blood Pressure 134/67 Pulse Oximetry 97 96 Oxygen Delivery 02/28/23 16:15 02/28/23 16:16 02/28/23 16:17 Temperature Pulse Rate 74 72 71 Respiratory Rate 14 19 16 Blood Pressure 162/73 H 139/123 H Pulse Oximetry Oxygen Delivery 02/28/23 16:30 02/28/23 16:31 02/28/23 16:45 Temperature Pulse Rate 71 72 73 Respiratory Rate 19 17 15 Blood Pressure 161/83 H Pulse Oximetry Oxygen Delivery 02/28/23 16:46 02/28/23 17:00 02/28/23 17:02 Temperature Pulse Rate 78 67 70 Respiratory Rate 16 18 16 Blood Pressure 138/78 168/116 H Pulse Oximetry Oxygen Delivery
[2023-03-01 12:12] LABS: Glucose Point of Care 182 mg/dl (65-105)
[2023-03-01 13:44] VITALS: BMI 21.7
[2023-03-01 14:00] VITALS: BP 144/64; PULSE 76; RESP 16; TEMP 37; O2SAT 99
--- NOTE | 2023-03-01 15:42 | PCPTNOTE ---
Spoke with hospitalist, Dr. De Guzman, who agreed to pt coming off of bedrest and being able to participate in skilled therapy. RN aware.
[2023-03-01] MEDS: SODIUM CHLORIDE 0.9% IV 1,000 ML 75 ML IV CONT (15:48)
[2023-03-01 17:40] LABS: Glucose Point of Care 159 mg/dl (65-105)
[2023-03-01] MEDS: amLODIPine BESYLATE 5 MG TABLET 10 MG PO (17:58)
[2023-03-01 17:59] VITALS: PULSE 81
[2023-03-01] MEDS: METOPROLOL SUCCINATE EXT REL 25 MG TABCR PO (17:59)
[2023-03-01 19:32] VITALS: BP 153/70; PULSE 82; RESP 16; TEMP 36.4; O2SAT 96
[2023-03-01 20:34] LABS: Glucose Point of Care 178 mg/dl (65-105)
[2023-03-02 04:26] VITALS: BP 158/72; PULSE 75; RESP 18; TEMP 36.6; O2SAT 98
[2023-03-02] MEDS: SODIUM CHLORIDE 0.9% IV 1,000 ML 75 ML IV CONT ×2 (05:23→19:36)
[2023-03-02] MEDS: LEVOTHYROXINE SODIUM 100 MCG TABLET PO (05:24)
[2023-03-02] MEDS: ACETAMINOPHEN 325 MG TABLET 650 MG PO ×3 (05:45→19:39)
[2023-03-02 05:54] LABS: Hematocrit 31.1 % (42.0-52.0); Mean Corpuscular HGB Conc 32.2 g/dl (32-36); Mean Corpuscular Hemoglobin 33.7 pg (26-34); Mean Corpuscular Volume 104.7 fl (80-100); Mean Platelet Volume 10.7 fl (7.4-10.4); Platelet Count Result 208 k/mm3 (150-375); Red Blood Count 2.97 M/mm3 (4.6-6.20); Red Cell Distribution Width 13.3 % (11.5-14.5); White Blood Count 5.8 K/mm3 (4.5-10.0)
[2023-03-02 06:02] LABS: Anion Gap 5 mmol/L (8-16); Blood Urea Nitrogen 21 mg/dL (9-20); Calcium 8.9 mg/dL (8.4-10.2); Carbon Dioxide 28 mmol/L (22-30); Chloride 100 mmol/L (98-107); Estimated CRCL calculation 28 ml/min; Estimated Glomerular Filt Rate 36; Glucose 157 mg/dL (65-110); Potassium 4.2 mmol/L (3.4-5.0); Sodium 133 mmol/L (137-145)
--- NOTE | 2023-03-02 08:18 | PM.IMPN ---
Progress Note: A&P Assessment and Plan (1) Altered mental status: Qualifiers: Altered mental status type: unspecified Qualified Code(s): R41.82 - Altered mental status, unspecified Code(s): R41.82 - Altered mental status, unspecified Status: Acute Assessment and Plan: Improving, likely due to a combination of infection (UTI) and dehydration. Brain CT did not show any acute findings. Continue to monitor closely. (2) Urinary tract infection: Qualifiers: Hematuria presence: without hematuria Urinary tract infection type: site unspecified Qualified Code(s): N39.0 - Urinary tract infection, site not specified Code(s): N39.0 - Urinary tract infection, site not specified Status: Acute Assessment and Plan: Started on ceftriaxone 02/28, urine culture negative for infection, antibiotics discontinued (3) Dehydration: Code(s): E86.0 - Dehydration Status: Acute Assessment and Plan: Continue IV fluid rehydration (4) Type 2 diabetes mellitus: Code(s): E11.9 - Type 2 diabetes mellitus without complications Status: Chronic Assessment and Plan: Initiate sliding scale insulin, Accu-Cheks, and hypoglycemic protocol. Blood glucose reviewed 03/02 (5) Hypertension: Code(s): I10 - Essential (primary) hypertension Status: Chronic Assessment and Plan: Blood pressure high. Increase metoprolol succinate to 25 mg p.o. daily. Continue amlodipine. Blood pressure reviewed 03/02 (6) Hypothyroidism: Qualifiers: Hypothyroidism type: acquired Qualified Code(s): E03.9 - Hypothyroidism, unspecified Code(s): E03.9 - Hypothyroidism, unspecified Status: Chronic Assessment and Plan: Thyroid profile suggests hyperthyroid state. Will decrease levothyroxine to 100 mcg (7) Anemia: Code(s): D64.9 - Anemia, unspecified Status: Acute Assessment and Plan: Iron studies as well as B12 and folates within normal limits (8) Dysphagia: Code(s): R13.10 - Dysphagia, unspecified Status: Acute Assessment and Plan: Modified barium swallow suggest silent aspiration. Dietary recommendations per speech therapist Plan 03/02: elbow pain, concerning for bursitis vs tendonitis, check xray DVT prophylaxis with SCDs GI prophylaxis not indicated Code status full code Subjective Date/time seen: 03/02/23 08:18 Interval history: 87-year-old male with history of diabetes, hypertension, hypothyroidism and kidney disease is presenting with altered mental status and weakness and is being treated for pneumonia. No overnight events noted. No chest pain or shortness of breath. No nausea, vomiting or diarrhea. No fevers or chills. C/o shoulder and elbow pain. He has been working on upper body more in therapy lately. Review of Systems Review of Systems: 12 point review of systems was assessed and was negative except as noted in the HPI Exam Narrative: General: No acute distress, alert and oriented per baseline HEENT: Atraumatic, normocephalic, mucous membranes moist CV: Regular rate and rhythm, S1, S2 Lungs: Clear to auscultation bilaterally, no rales or crackles noted, no wheezes, good air entry Abdomen: Soft, nontender, nondistended Extremities: Normal to inspection, elbow TTP, unable to straighten without pain, no effusion noted Skin: No rashes noted, no lesions or wounds seen Psych: Euthymic, normal affect Objective Data Vital Signs Vital Signs: Vital Signs - 24 hr 03/01/23 09:05 03/01/23 14:00 03/01/23 15:08 Temperature 98.6 F Pulse Rate 76 Respiratory Rate 16 Blood Pressure 144/64 H Pulse Oximetry 99 Oxygen Delivery Room Air Room Air 03/01/23 17:59 03/01/23 19:32 03/02/23 04:26 Temperature 97.6 F 98 F Pulse Rate 81 82 75 Respiratory Rate 16 18 Blood Pressure 153/70 H 158/72 H Pulse Oximetry
[2023-03-02] MEDS: DULoxetine HCL 60 MG CAPSULE.DR PO (08:33)
[2023-03-02] MEDS: PANTOPRAZOLE 40 MG TABLET PO (08:33)
[2023-03-02] MEDS: ENOXAPARIN 40 MG/0.4 ML SYRINGE SUB-Q (08:33)
[2023-03-02] MEDS: EMPAGLIFLOZIN 10 MG TABLET PO (08:33)
[2023-03-02] MEDS: MAGNESIUM OXIDE 200 MG TABLET PO (08:33)
[2023-03-02 08:39] LABS: Glucose Point of Care 147 mg/dl (65-105)
[2023-03-02 09:12] VITALS: O2SAT 94
[2023-03-02 11:54] LABS: Glucose Point of Care 246 mg/dl (65-105)
[2023-03-02] MEDS: INSULIN ASPART (*BKC) 100 UNITS/ML SUB-Q ×2 (12:32→19:36)
[2023-03-02 14:00] VITALS: BP 101/53; PULSE 74; RESP 18; TEMP 36.1; O2SAT 90
[2023-03-02 17:29] VITALS: BP 148/65; PULSE 73; O2SAT 99
[2023-03-02 17:30] VITALS: PULSE 73
[2023-03-02] MEDS: METOPROLOL SUCCINATE EXT REL 25 MG TABCR PO (17:30)
[2023-03-02] MEDS: amLODIPine BESYLATE 5 MG TABLET 10 MG PO (17:30)
[2023-03-02 17:40] LABS: Glucose Point of Care 183 mg/dl (65-105)
[2023-03-02 19:24] VITALS: BP 139/59; PULSE 81; RESP 18; TEMP 36.7; O2SAT 96
[2023-03-02 20:26] LABS: Glucose Point of Care 214 mg/dl (65-105)
[2023-03-03] MEDS: LEVOTHYROXINE SODIUM 100 MCG TABLET PO (05:24)
[2023-03-03 05:50] VITALS: BP 153/74; PULSE 77; RESP 18; TEMP 36.6; O2SAT 97
[2023-03-03 06:04] LABS: Alanine Aminotransferase 16 U/L (6-50); Albumin Level 3.5 g/dL (3.5-5.1); Alkaline Phosphatase 71 U/L (38-126); Anion Gap 10 mmol/L (8-16); Aspartate Amino Transferase 21 U/L (17-59); Bilirubin,Total 0.6 mg/dL (0.2-1.3); Blood Urea Nitrogen 19 mg/dL (9-20); Calcium 9.1 mg/dL (8.4-10.2); Carbon Dioxide 27 mmol/L (22-30); Chloride 95 mmol/L (98-107); Estimated CRCL calculation 38 ml/min; Estimated Glomerular Filt Rate 52; Glucose 129 mg/dL (65-110); Sodium 132 mmol/L (137-145)
[2023-03-03 06:14] LABS: Basophils Percent Auto 0.4 % (0.2-1.2); Eosinophils Absolute Auto 0.1 K/mm3 (0-0.3); Eosinophils Percent Auto 2.8 % (0-4.4); Hematocrit 30.7 % (42.0-52.0); Immature Granulocyte Absolute 0.02 K/mm3 (0.00-0.031); Immature Granulocyte Percent A 0.4 % (0-0.5); Lymphocytes Absolute Auto 0.77 K/mm3 (0.9-3.2); Lymphocytes Percent Auto 15.4 % (18.3-44.2); Mean Corpuscular HGB Conc 32.6 g/dl (32-36); Mean Corpuscular Hemoglobin 33.4 pg (26-34); Mean Corpuscular Volume 102.7 fl (80-100); Mean Platelet Volume 11.2 fl (7.4-10.4); Monocytes Absolute Auto 0.6 K/mm3 (0.1-0.6); Monocytes Percent Auto 11.4 % (2.6-8.5); Neutrophils Absolute Auto 3.5 K/mm3 (1.3-6.7); Neutrophils Percent Auto 69.6 % (45.5-73.1); Platelet Count Result 213 k/mm3 (150-375); Red Blood Count 2.99 M/mm3 (4.6-6.20); Red Cell Distribution Width 13.1 % (11.5-14.5)
[2023-03-03 08:24] LABS: Glucose Point of Care 150 mg/dl (65-105)
--- NOTE | 2023-03-03 09:25 | PM.IMPN ---
Progress Note: A&P Assessment and Plan (1) Altered mental status: Qualifiers: Altered mental status type: unspecified Qualified Code(s): R41.82 - Altered mental status, unspecified Code(s): R41.82 - Altered mental status, unspecified Status: Acute Assessment and Plan: Improving, likely due to dehydration Brain CT did not show any acute findings. Continue to monitor closely. (2) Urinary tract infection: Qualifiers: Hematuria presence: without hematuria Urinary tract infection type: site unspecified Qualified Code(s): N39.0 - Urinary tract infection, site not specified Code(s): N39.0 - Urinary tract infection, site not specified Status: Acute Assessment and Plan: Started on ceftriaxone 02/28, urine culture negative for infection, antibiotics discontinued (3) Dehydration: Code(s): E86.0 - Dehydration Status: Acute Assessment and Plan: Continue IV fluid rehydration (4) Type 2 diabetes mellitus: Code(s): E11.9 - Type 2 diabetes mellitus without complications Status: Chronic Assessment and Plan: Initiate sliding scale insulin, Accu-Cheks, and hypoglycemic protocol. Blood glucose reviewed 03/03 (5) Hypertension: Code(s): I10 - Essential (primary) hypertension Status: Chronic Assessment and Plan: Cont metoprolol succinate to 25 mg p.o. daily. Continue amlodipine. Blood pressure reviewed 03/03 (6) Hypothyroidism: Qualifiers: Hypothyroidism type: acquired Qualified Code(s): E03.9 - Hypothyroidism, unspecified Code(s): E03.9 - Hypothyroidism, unspecified Status: Chronic Assessment and Plan: Thyroid profile suggests hyperthyroid state. Will decrease levothyroxine to 100 mcg (7) Anemia: Code(s): D64.9 - Anemia, unspecified Status: Acute Assessment and Plan: Iron studies as well as B12 and folates within normal limits (8) Dysphagia: Code(s): R13.10 - Dysphagia, unspecified Status: Acute Assessment and Plan: Modified barium swallow suggest silent aspiration. Dietary recommendations per speech therapist (9) Radial fracture: Code(s): S52.90XA - Unspecified fracture of unspecified forearm, initial encounter for closed fracture Status: Acute Assessment and Plan: ortho consult appreciated, no intervention recommended, cont WBAT, pain control Plan 03/03: Seroquel QHS for DVT prophylaxis with SCDs GI prophylaxis not indicated Code status full code Subjective Date/time seen: 03/03/23 09:25 Interval history: 87-year-old male with history of diabetes, hypertension, hypothyroidism and kidney disease is presenting with altered mental status and weakness and is being treated for pneumonia. No overnight events noted. No chest pain or shortness of breath. No nausea, vomiting or diarrhea. No fevers or chills. C/o shoulder, neck and arm pain, same as yesterday. Staff and family report that he seems more confused today. Review of Systems Review of Systems: 12 point review of systems was assessed and was negative except as noted in the HPI Exam Narrative: General: No acute distress, alert and oriented per baseline HEENT: Atraumatic, normocephalic, mucous membranes moist CV: Regular rate and rhythm, S1, S2 Lungs: Clear to auscultation bilaterally, no rales or crackles noted, no wheezes, good air entry Abdomen: Soft, nontender, nondistended Extremities: Normal to inspection, elbow TTP, unable to straighten without pain, no effusion noted Skin: No rashes noted, no lesions or wounds seen Psych: Euthymic, normal affect Objective Data Vital Signs Vital Signs: Vital Signs - 24 hr 03/02/23 14:00 03/02/23 17:29 03/02/23 17:30 Temperature 97.0 F L Pulse Rate 74 73 73 Respiratory Rate 18 Blood Pressure 101/53 L 148/65 H Pulse Oximetry 90 99
[2023-03-03] MEDS: EMPAGLIFLOZIN 10 MG TABLET PO (09:28)
[2023-03-03] MEDS: ENOXAPARIN 40 MG/0.4 ML SYRINGE SUB-Q (09:28)
[2023-03-03] MEDS: PANTOPRAZOLE 40 MG TABLET PO (09:28)
[2023-03-03] MEDS: DULoxetine HCL 60 MG CAPSULE.DR PO (09:28)
[2023-03-03] MEDS: MAGNESIUM OXIDE 200 MG TABLET PO (09:28)
[2023-03-03 12:01] LABS: Glucose Point of Care 217 mg/dl (65-105)
--- NOTE | 2023-03-03 12:55 | P.CDI_ITS ---
CDI Query Clarification Request BMI 21.7 Nutritional Diagnostic Statement Severe protein calorie malnutrition related to loss of appetite, nausea, vomiting, early satiety in the context of gastroparesis as evidenced by 27% weight loss/ 5 months: poor intake < 75% needs > 1 month: moderately muscle wasting and fat loss Please refer to the comprehensive nutrition assessment for further information. Please clarify the severity of protein calorie malnutrition if known: * Mild * Moderate * Severe * Other/Unspecified <India Rodriguez RN - Last Filed: 03/03/23 13:01> Clarified Diagnosis Clarified Diagnosis: moderate <Kanwal Aguilera DO - Last Filed: 03/03/23 14:55>
[2023-03-03] MEDS: INSULIN ASPART (*BKC) 100 UNITS/ML SUB-Q (13:14)
[2023-03-03 13:55] VITALS: O2SAT 96
[2023-03-03 14:00] VITALS: BP 140/59; PULSE 80; RESP 16; TEMP 36.3; O2SAT 98
--- NOTE | 2023-03-03 14:05 | PM.CNOR ---
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 Aggravated by recent falls. History of radial head fracture and chronic stiffness of the elbow. No evidence for acute fracture or dislocation. He may use the elbow as tolerated. He may weightbear on the right upper extremity. No immobilization necessary. History of Present Illness HPI Consult date: 03/03/23 Consult reason: joint pain Chief complaint: ams, uti, dehydration Narrative: 87-year-old male with history of recent falls complains of swelling and pain in the right elbow. He says he broke the elbow many years ago and has had chronic stiffness. Review of Systems Review of Systems: All systems reviewed & are unremarkable except as noted in HPI and below PMFSH Past Medical History Medical History Arthritis Chronic renal failure, stage 3 (moderate) Baseline creatinine is between 1.3 and 1.60. Dysphagia Esophageal stricture With several EGDs requiring dilatation. 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 History of hernia repair Umbilical hernia repair x2 with mesh. History of orthopedic surgery Repair of left elbow fracture. Family History Family History Father Carotid artery stenosis Mother Patient's mother is She shortly after she fell and fractured her hip. Within 6 months of fracturing her hip failure to thrive Social History Social History Social History: Surrogate decision maker: Candice Roche, daughter or Koko Kowalski, son. Code status: Do not resuscitate. Smoking status: Former smoker Tobacco type: cigarettes Second hand tobacco smoke exposure: Yes Smoking end date: 07/24/1964 Alcohol intake: former Alcohol use details: social drinker in the past Substance use: never Substance use type: does not use Last use: Quit drinking in 1975. Lack of Transportation: No Lack of Food: Never True Current Housing: Decline to Answer Concerned About Future Housing: No Difficulty Paying Gas/Electric Bills: No Difficulty Paying for Meds: No Currently Unemployed: No Education: High School Diploma/GED Difficulty w/ Childcare or Family Care: No Living arrangements: custodial Additional living arrangements comments: . Additional occupation/education comments: Retired from [email or web address]. Spiritual care concerns: No Agree to blood products: Yes Meds Home Medications and Allergies Home Medications Medication Instructions Recorded Confirmed Type allopurinol 100 mg tablet 200 mg PO DAILY 10/22/19 02/28/23 History amlodipine 10 mg tablet 10 mg PO DAILY@1700 10/22/19 02/28/23 History duloxetine 60 mg capsule,delayed 60 mg
[2023-03-03 17:11] VITALS: PULSE 92
[2023-03-03] MEDS: METOPROLOL SUCCINATE EXT REL 25 MG TABCR PO (17:11)
[2023-03-03] MEDS: amLODIPine BESYLATE 5 MG TABLET 10 MG PO (17:11)
[2023-03-03 17:27] LABS: Glucose Point of Care 143 mg/dl (65-105)
[2023-03-03 19:59] VITALS: BP 152/69; PULSE 89; RESP 18; TEMP 36.7; O2SAT 97
[2023-03-03] MEDS: QUEtiapine FUMARATE 12.5 MG TABLET PO (20:25)
[2023-03-03] MEDS: SODIUM CHLORIDE 0.9% IV 1,000 ML 75 ML IV CONT (20:26)
[2023-03-03 21:54] LABS: Glucose Point of Care 182 mg/dl (65-105)
[2023-03-03 22:40] VITALS: O2SAT 97
[2023-03-04 05:08] VITALS: BP 152/80; PULSE 84; RESP 16; TEMP 36.5; O2SAT 97
[2023-03-04] MEDS: LEVOTHYROXINE SODIUM 100 MCG TABLET PO (06:04)
[2023-03-04 06:19] LABS: Basophils Percent Auto 0.5 % (0.2-1.2); Eosinophils Absolute Auto 0.1 K/mm3 (0-0.3); Eosinophils Percent Auto 3.3 % (0-4.4); Hematocrit 30.4 % (42.0-52.0); Immature Granulocyte Absolute 0.02 K/mm3 (0.00-0.031); Immature Granulocyte Percent A 0.5 % (0-0.5); Lymphocytes Absolute Auto 0.71 K/mm3 (0.9-3.2); Lymphocytes Percent Auto 16.9 % (18.3-44.2); Mean Corpuscular HGB Conc 32.9 g/dl (32-36); Mean Corpuscular Hemoglobin 33.9 pg (26-34); Mean Corpuscular Volume 103.1 fl (80-100); Mean Platelet Volume 11.2 fl (7.4-10.4); Monocytes Absolute Auto 0.5 K/mm3 (0.1-0.6); Monocytes Percent Auto 12.6 % (2.6-8.5); Neutrophils Absolute Auto 2.8 K/mm3 (1.3-6.7); Neutrophils Percent Auto 66.2 % (45.5-73.1); Platelet Count Result 196 k/mm3 (150-375); Red Blood Count 2.95 M/mm3 (4.6-6.20); Red Cell Distribution Width 13.4 % (11.5-14.5); White Blood Count 4.2 K/mm3 (4.5-10.0)
[2023-03-04 06:32] LABS: Alanine Aminotransferase 16 U/L (6-50); Albumin Level 3.2 g/dL (3.5-5.1); Alkaline Phosphatase 71 U/L (38-126); Anion Gap 5 mmol/L (8-16); Aspartate Amino Transferase 25 U/L (17-59); Bilirubin,Total 0.7 mg/dL (0.2-1.3); Blood Urea Nitrogen 15 mg/dL (9-20); Calcium 8.8 mg/dL (8.4-10.2); Carbon Dioxide 27 mmol/L (22-30); Chloride 100 mmol/L (98-107); Estimated CRCL calculation 41 ml/min; Estimated Glomerular Filt Rate 58; Glucose 137 mg/dL (65-110); Potassium 4.1 mmol/L (3.4-5.0); Sodium 132 mmol/L (137-145)
[2023-03-04 08:23] VITALS: O2SAT 97
[2023-03-04 08:25] LABS: Glucose Point of Care 140 mg/dl (65-105)
[2023-03-04] MEDS: SODIUM CHLORIDE 0.9% IV 1,000 ML 75 ML IV CONT (09:14)
[2023-03-04] MEDS: DULoxetine HCL 60 MG CAPSULE.DR PO (09:16)
[2023-03-04] MEDS: ENOXAPARIN 40 MG/0.4 ML SYRINGE SUB-Q (09:16)
[2023-03-04] MEDS: EMPAGLIFLOZIN 10 MG TABLET PO (09:16)
[2023-03-04] MEDS: MAGNESIUM OXIDE 200 MG TABLET PO (09:16)
[2023-03-04] MEDS: PANTOPRAZOLE 40 MG TABLET PO (09:16)
--- NOTE | 2023-03-04 09:52 | PM.IMPN ---
Progress Note: A&P Assessment and Plan (1) Altered mental status: Qualifiers: Altered mental status type: unspecified Qualified Code(s): R41.82 - Altered mental status, unspecified Code(s): R41.82 - Altered mental status, unspecified Status: Acute Assessment and Plan: Improving, likely due to dehydration, d/c IVF 03/[address] did not show any acute findings. Continue to monitor closely. (2) Urinary tract infection: Qualifiers: Hematuria presence: without hematuria Urinary tract infection type: site unspecified Qualified Code(s): N39.0 - Urinary tract infection, site not specified Code(s): N39.0 - Urinary tract infection, site not specified Status: Acute Assessment and Plan: Started on ceftriaxone 02/28, urine culture negative for infection, antibiotics discontinued (3) Dehydration: Code(s): E86.0 - Dehydration Status: Acute Assessment and Plan: resolved (4) Type 2 diabetes mellitus: Code(s): E11.9 - Type 2 diabetes mellitus without complications Status: Chronic Assessment and Plan: Initiate sliding scale insulin, Accu-Cheks, and hypoglycemic protocol. Blood glucose reviewed 03/04 (5) Hypertension: Code(s): I10 - Essential (primary) hypertension Status: Chronic Assessment and Plan: Cont metoprolol succinate to 25 mg p.o. daily. Continue amlodipine. Blood pressure reviewed 03/04 (6) Hypothyroidism: Qualifiers: Hypothyroidism type: acquired Qualified Code(s): E03.9 - Hypothyroidism, unspecified Code(s): E03.9 - Hypothyroidism, unspecified Status: Chronic Assessment and Plan: Thyroid profile suggests hyperthyroid state. Will decrease levothyroxine to 100 mcg (7) Anemia: Code(s): D64.9 - Anemia, unspecified Status: Acute Assessment and Plan: Iron studies as well as B12 and folates within normal limits (8) Dysphagia: Code(s): R13.10 - Dysphagia, unspecified Status: Acute Assessment and Plan: Modified barium swallow suggest silent aspiration. Dietary recommendations per speech therapist (9) Radial fracture: Qualifiers: Encounter type: sequela Fracture morphology: unspecified fracture morphology Fracture type: closed Laterality: right Radius location: proximal Qualified Code(s): S52.101S - Unspecified fracture of upper end of right radius, sequela Code(s): S52.90XA - Unspecified fracture of unspecified forearm, initial encounter for closed fracture Status: Acute Assessment and Plan: ortho consult appreciated, no intervention recommended, cont WBAT, pain control Plan 03/03: Seroquel QHS for made too somnolent, d/c DVT prophylaxis with SCDs GI prophylaxis not indicated Code status full code Subjective Date/time seen: 03/04/23 09:52 Interval history: 87-year-old male with history of diabetes, hypertension, hypothyroidism and kidney disease is presenting with altered mental status and weakness and is being treated for pneumonia. No overnight events noted. No chest pain or shortness of breath. No nausea, vomiting or diarrhea. No fevers or chills. Less confused today, less pain today, more somnolent. Received seroquel qhs. Review of Systems Review of Systems: ROS unobtainable: Yes unobtainable due to mental status Exam Narrative: General: Somnolent, less confused when awake, per family HEENT: Atraumatic, normocephalic, mucous membranes moist CV: Regular rate and rhythm, S1, S2 Lungs: Clear to auscultation bilaterally, no rales or crackles noted, no wheezes Abdomen: Soft, nontender, nondistended Extremities: Normal to inspection, elbow TTP, able to be straightened more today Skin: No rashes noted, no lesions or wounds seen Psych: Unable to assess Objective Data Vital Signs Vital Signs: Vital Signs - 24 hr 03/03
[2023-03-04 12:12] LABS: Glucose Point of Care 167 mg/dl (65-105)
[2023-03-04 14:00] VITALS: BP 153/76; PULSE 92; RESP 16; TEMP 36.3; O2SAT 100
[2023-03-04 17:23] LABS: Glucose Point of Care 126 mg/dl (65-105)
[2023-03-04] MEDS: amLODIPine BESYLATE 5 MG TABLET 10 MG PO (17:43)
[2023-03-04 17:44] VITALS: PULSE 91
[2023-03-04] MEDS: METOPROLOL SUCCINATE EXT REL 25 MG TABCR PO (17:44)
[2023-03-04] MEDS: ACETAMINOPHEN 325 MG TABLET 650 MG PO (17:50)
[2023-03-04 20:09] VITALS: O2SAT 96
[2023-03-04 20:31] VITALS: BP 151/77; PULSE 82; RESP 20; TEMP 36.4; O2SAT 97
[2023-03-04 20:37] LABS: Glucose Point of Care 128 mg/dl (65-105)
[2023-03-05 05:11] VITALS: BP 154/66; PULSE 79; RESP 20; TEMP 36.5; O2SAT 96
[2023-03-05 06:03] LABS: Basophils Percent Auto 0.5 % (0.2-1.2); Eosinophils Absolute Auto 0.1 K/mm3 (0-0.3); Eosinophils Percent Auto 1.8 % (0-4.4); Hemoglobin 11.6 g/dL (14.0-18.0); Immature Granulocyte Absolute 0.02 K/mm3 (0.00-0.031); Immature Granulocyte Percent A 0.4 % (0-0.5); Lymphocytes Absolute Auto 0.63 K/mm3 (0.9-3.2); Lymphocytes Percent Auto 11.4 % (18.3-44.2); Mean Corpuscular HGB Conc 31.4 g/dl (32-36); Mean Corpuscular Hemoglobin 33.8 pg (26-34); Mean Corpuscular Volume 107.9 fl (80-100); Mean Platelet Volume 11.1 fl (7.4-10.4); Monocytes Absolute Auto 0.6 K/mm3 (0.1-0.6); Monocytes Percent Auto 10.5 % (2.6-8.5); Neutrophils Absolute Auto 4.2 K/mm3 (1.3-6.7); Neutrophils Percent Auto 75.4 % (45.5-73.1); Platelet Count Result 226 k/mm3 (150-375); Red Blood Count 3.43 M/mm3 (4.6-6.20); White Blood Count 5.6 K/mm3 (4.5-10.0)
[2023-03-05 06:20] LABS: Alanine Aminotransferase 18 U/L (6-50); Albumin Level 3.8 g/dL (3.5-5.1); Alkaline Phosphatase 86 U/L (38-126); Anion Gap 15 mmol/L (8-16); Aspartate Amino Transferase 26 U/L (17-59); Bilirubin,Total 0.8 mg/dL (0.2-1.3); Blood Urea Nitrogen 15 mg/dL (9-20); Calcium 9.4 mg/dL (8.4-10.2); Carbon Dioxide 20 mmol/L (22-30); Chloride 97 mmol/L (98-107); Estimated CRCL calculation 45 ml/min; Estimated Glomerular Filt Rate > 60; Glucose 138 mg/dL (65-110); Potassium 4.4 mmol/L (3.4-5.0); Sodium 132 mmol/L (137-145)
[2023-03-05] MEDS: LEVOTHYROXINE SODIUM 100 MCG TABLET PO (06:21)
[2023-03-05 07:54] VITALS: O2SAT 96
[2023-03-05 08:40] LABS: Glucose Point of Care 132 mg/dl (65-105)
--- NOTE | 2023-03-05 10:55 | PC.NURSE ---
Patient will not eat, will not take medications, and will not wake up. Does not want to take anything by mouth at this time. Family at bedside and aware.
--- NOTE | 2023-03-05 11:48 | PM.IMPN ---
Progress Note: A&P Assessment and Plan (1) Altered mental status: Qualifiers: Altered mental status type: unspecified Qualified Code(s): R41.82 - Altered mental status, unspecified Code(s): R41.82 - Altered mental status, unspecified Status: Acute Assessment and Plan: Improving, likely due to dehydration, d/c IVF 03/[address] did not show any acute findings. Continue to monitor closely. (2) Urinary tract infection: Qualifiers: Hematuria presence: without hematuria Urinary tract infection type: site unspecified Qualified Code(s): N39.0 - Urinary tract infection, site not specified Code(s): N39.0 - Urinary tract infection, site not specified Status: Acute Assessment and Plan: Started on ceftriaxone 02/28, urine culture negative for infection, antibiotics discontinued (3) Dehydration: Code(s): E86.0 - Dehydration Status: Acute Assessment and Plan: resolved (4) Type 2 diabetes mellitus: Code(s): E11.9 - Type 2 diabetes mellitus without complications Status: Chronic Assessment and Plan: Initiate sliding scale insulin, Accu-Cheks, and hypoglycemic protocol. Blood glucose reviewed 03/05 (5) Hypertension: Code(s): I10 - Essential (primary) hypertension Status: Chronic Assessment and Plan: Cont metoprolol succinate to 25 mg p.o. daily. Continue amlodipine. Blood pressure reviewed 03/05 (6) Hypothyroidism: Qualifiers: Hypothyroidism type: acquired Qualified Code(s): E03.9 - Hypothyroidism, unspecified Code(s): E03.9 - Hypothyroidism, unspecified Status: Chronic Assessment and Plan: Thyroid profile suggests hyperthyroid state. Will decrease levothyroxine to 100 mcg (7) Anemia: Code(s): D64.9 - Anemia, unspecified Status: Acute Assessment and Plan: Iron studies as well as B12 and folates within normal limits (8) Dysphagia: Code(s): R13.10 - Dysphagia, unspecified Status: Acute Assessment and Plan: Modified barium swallow suggest silent aspiration. Dietary recommendations per speech therapist (9) Radial fracture: Qualifiers: Encounter type: sequela Fracture morphology: unspecified fracture morphology Fracture type: closed Laterality: right Radius location: proximal Qualified Code(s): S52.101S - Unspecified fracture of upper end of right radius, sequela Code(s): S52.90XA - Unspecified fracture of unspecified forearm, initial encounter for closed fracture Status: Acute Assessment and Plan: ortho consult appreciated, no intervention recommended, cont WBAT, pain control Plan Hospice consult placed for support at d/c to SNF DVT prophylaxis with SCDs GI prophylaxis not indicated Code status DNR Subjective Date/time seen: 03/05/23 11:48 Interval history: 87-year-old male with history of diabetes, hypertension, hypothyroidism and kidney disease is presenting with altered mental status and weakness and is being treated for pneumonia. No overnight events noted. No chest pain or shortness of breath. No nausea, vomiting or diarrhea. No fevers or chills. Improved a bit from yesterday, more alert, more active. Better po intake. Review of Systems Review of Systems: ROS unobtainable: Yes unobtainable due to mental status Exam Narrative: General: Somnolent, less confused when awake, per family HEENT: Atraumatic, normocephalic, mucous membranes moist CV: Regular rate and rhythm, S1, S2 Lungs: Clear to auscultation bilaterally, no rales or crackles noted, no wheezes Abdomen: Soft, nontender, nondistended Extremities: Normal to inspection, elbow TTP, able to be straightened more today Skin: No rashes noted, no lesions or wounds seen Psych: Unable to assess Objective Data Vital Signs Vital Signs: Vital Signs - 24 hr 03/04/23 14:00
[2023-03-05 12:24] LABS: Glucose Point of Care 144 mg/dl (65-105)
[2023-03-05] MEDS: ACETAMINOPHEN 325 MG TABLET 650 MG PO ×2 (13:03→20:56)
[2023-03-05 14:00] VITALS: BP 157/64; PULSE 75; RESP 16; TEMP 36.1; O2SAT 97
--- NOTE | 2023-03-05 14:39 | PCOTNOTE ---
Attempted to see pt for Occupational therapy treatment. Pt is able to open eyes when calling out pt's name, however, is not able to keep them open for any length of time to participate in therapy. RN states that pt has been sleeping throughout the day and is not eating as much without assistance/prompting. Will continue per POC duration/frequency tomorrow.
--- NOTE | 2023-03-05 18:40 | PC.NURSE ---
Bed Worker attempted to sit patient up to take medications and eat, but patient would not. Patient was difficult to arouse and wanted to be left alone.
[2023-03-05 18:50] LABS: Glucose Point of Care 162 mg/dl (65-105)
[2023-03-05 20:18] VITALS: BP 174/93; PULSE 73; RESP 20; TEMP 36.4; O2SAT 100
[2023-03-05 20:32] LABS: Glucose Point of Care 152 mg/dl (65-105)
[2023-03-05 21:35] VITALS: BP 160/79
[2023-03-06 05:49] VITALS: BP 163/78; PULSE 83; RESP 20; TEMP 36.4; O2SAT 100
[2023-03-06] MEDS: LEVOTHYROXINE SODIUM 100 MCG TABLET PO (05:59)
[2023-03-06 06:23] LABS: Basophils Percent Auto 0.3 % (0.2-1.2); Eosinophils Absolute Auto 0.1 K/mm3 (0-0.3); Eosinophils Percent Auto 2.3 % (0-4.4); Hematocrit 34.5 % (42.0-52.0); Hemoglobin 11.3 g/dL (14.0-18.0); Immature Granulocyte Absolute 0.05 K/mm3 (0.00-0.031); Immature Granulocyte Percent A 0.8 % (0-0.5); Lymphocytes Absolute Auto 0.63 K/mm3 (0.9-3.2); Lymphocytes Percent Auto 10.2 % (18.3-44.2); Mean Corpuscular HGB Conc 32.8 g/dl (32-36); Mean Corpuscular Hemoglobin 33.2 pg (26-34); Mean Corpuscular Volume 101.5 fl (80-100); Monocytes Absolute Auto 0.5 K/mm3 (0.1-0.6); Monocytes Percent Auto 7.5 % (2.6-8.5); Neutrophils Absolute Auto 4.9 K/mm3 (1.3-6.7); Neutrophils Percent Auto 78.9 % (45.5-73.1); Platelet Count Result 259 k/mm3 (150-375); Red Cell Distribution Width 12.8 % (11.5-14.5); White Blood Count 6.2 K/mm3 (4.5-10.0)
[2023-03-06 06:38] LABS: Alanine Aminotransferase 17 U/L (6-50); Albumin Level 3.6 g/dL (3.5-5.1); Alkaline Phosphatase 80 U/L (38-126); Anion Gap 9 mmol/L (8-16); Aspartate Amino Transferase 24 U/L (17-59); Bilirubin,Total 0.7 mg/dL (0.2-1.3); Blood Urea Nitrogen 18 mg/dL (9-20); Calcium 9.6 mg/dL (8.4-10.2); Carbon Dioxide 24 mmol/L (22-30); Chloride 95 mmol/L (98-107); Estimated CRCL calculation 45 ml/min; Estimated Glomerular Filt Rate > 60; Glucose 155 mg/dL (65-110); Potassium 4.6 mmol/L (3.4-5.0); Sodium 128 mmol/L (137-145)
[2023-03-06 08:34] LABS: Glucose Point of Care 163 mg/dl (65-105)
--- NOTE | 2023-03-06 09:27 | PM.DS ---
DS: Admitting Diagnosis Discharge Date 03/06/23 Admitting Diagnosis ams DS: Discharge Diagnosis Discharge Diagnosis (1) Altered mental status: Qualifiers: Altered mental status type: unspecified Qualified Code(s): R41.82 - Altered mental status, unspecified Code(s): R41.82 - Altered mental status, unspecified Status: Acute Assessment and Plan: Improving, likely due to dehydration, d/c IVF 03/[address] did not show any acute findings. Continue to monitor closely. (2) Urinary tract infection: Qualifiers: Hematuria presence: without hematuria Urinary tract infection type: site unspecified Qualified Code(s): N39.0 - Urinary tract infection, site not specified Code(s): N39.0 - Urinary tract infection, site not specified Status: Acute Assessment and Plan: Started on ceftriaxone 02/28, urine culture negative for infection, antibiotics discontinued (3) Dehydration: Code(s): E86.0 - Dehydration Status: Acute Assessment and Plan: resolved (4) Type 2 diabetes mellitus: Code(s): E11.9 - Type 2 diabetes mellitus without complications Status: Chronic Assessment and Plan: Initiate sliding scale insulin, Accu-Cheks, and hypoglycemic protocol. Blood glucose reviewed 03/05 (5) Hypertension: Code(s): I10 - Essential (primary) hypertension Status: Chronic Assessment and Plan: Cont metoprolol succinate to 25 mg p.o. daily. Continue amlodipine. Blood pressure reviewed 03/05 (6) Hypothyroidism: Qualifiers: Hypothyroidism type: acquired Qualified Code(s): E03.9 - Hypothyroidism, unspecified Code(s): E03.9 - Hypothyroidism, unspecified Status: Chronic Assessment and Plan: Thyroid profile suggests hyperthyroid state. Will decrease levothyroxine to 100 mcg (7) Anemia: Code(s): D64.9 - Anemia, unspecified Status: Acute Assessment and Plan: Iron studies as well as B12 and folates within normal limits (8) Dysphagia: Code(s): R13.10 - Dysphagia, unspecified Status: Acute Assessment and Plan: Modified barium swallow suggest silent aspiration. Dietary recommendations per speech therapist (9) Radial fracture: Qualifiers: Encounter type: sequela Radius location: proximal Fracture type: closed Fracture morphology: unspecified fracture morphology Laterality: right Qualified Code(s): S52.101S - Unspecified fracture of upper end of right radius, sequela Code(s): S52.90XA - Unspecified fracture of unspecified forearm, initial encounter for closed fracture Status: Acute Assessment and Plan: ortho consult appreciated, no intervention recommended, cont WBAT, pain control Plan Hospice consult placed for support at d/c to SNF DVT prophylaxis with SCDs GI prophylaxis not indicated Code status DNR DS: Summary Hospital Course Hospital Course: 87-year-old male with history of diabetes, hypertension, hypothyroidism and kidney disease is presenting with altered mental status and weakness and is being treated for pneumonia. CT negative for stroke. Urine culture negative for infection. All symptoms thought to be secondary to underlying dementia exacerbated by dehydration. Due to significant decline over the last several months, patient will be discharged to SNF. Please see above and med rec for details. Time Spent with Patient Time attestation: Total time spent providing and/or coordinating discharge services: Exam Narrative: General: Somnolent, less confused when awake, per family HEENT: Atraumatic, normocephalic, mucous membranes moist CV: Regular rate and rhythm, S1, S2 Lungs: Clear to auscultation bilaterally, no rales or crackles noted, no wheezes Abdomen: Soft, nontender, nondistended Extremities: Normal to inspection, elbow TTP, able to be straightened more today
[2023-03-06] MEDS: ENOXAPARIN 40 MG/0.4 ML SYRINGE SUB-Q (09:30)
[2023-03-06] MEDS: PANTOPRAZOLE 40 MG TABLET PO (09:30)
[2023-03-06] MEDS: DULoxetine HCL 60 MG CAPSULE.DR PO (09:30)
[2023-03-06] MEDS: EMPAGLIFLOZIN 10 MG TABLET PO (09:30)
[2023-03-06] MEDS: MAGNESIUM OXIDE 200 MG TABLET PO (09:30)
[2023-03-06] MEDS: ACETAMINOPHEN 325 MG TABLET 650 MG PO (09:36)
[2023-03-06 12:13] LABS: Glucose Point of Care 147 mg/dl (65-105)
[2023-03-06 13:00] LABS: SARS-CoV-2 RNA PCR Negative (Negative)
[2023-03-06 14:00] VITALS: BP 123/71; PULSE 94; RESP 16; TEMP 36.4; O2SAT 100
--- NOTE | 2023-03-06 14:30 | PC.NURSE ---
[employer] attempted to call report and no answer. Went to voicemail. Will call again.
== END 2023-03-06 17:30 | DRG 194 ==
LOC: ANHED 19:51 → ANH3MED 20:49
PROVIDERS: Emergency Medicine; Hospitalist; Physician Assistant; Admitting Provider Internal Medicine; Emergency Provider Emergency Medicine; PCP Family Medicine; Visit Provider Student in an Organized Health Care Education/Training Program
DX: J18.9 Pneumonia, unspecified organism (principal); E44.0 Moderate protein-calorie malnutrition; R44.3 Hallucinations, unspecified; F03.90 Unspecified dementia, unspecified severity, without behavioral disturbance, psychotic disturbance, mood disturbance, and anxiety; E11.43 Type 2 diabetes mellitus with diabetic autonomic (poly)neuropathy; K31.84 Gastroparesis; Z79.84 Long term (current) use of oral hypoglycemic drugs; I12.9 Hypertensive chronic kidney disease with stage 1 through stage 4 chronic kidney disease, or unspecified chronic kidney disease; E11.22 Type 2 diabetes mellitus with diabetic chronic kidney disease; N18.30 Chronic kidney disease, stage 3 unspecified; M12.521 Traumatic arthropathy, right elbow; S52.124 Nondisplaced fracture of head of right radius; W19.XXXS Unspecified fall, sequela; Z68.23 Body mass index [BMI] 23.0-23.9, adult
CPT/HCPCS: 36415; 70450; 71045; 73080; 80048; 80053; 81001; 82550; 82607; 82728; 82746; 82948; 83036; 83540; 83550; 83735; 84439; 84443; 84484; 85025; 85027; 85610; 85730; 87086; 87635; 92526; 92611; 93005; 96360; 96361; 97110; 97161; 97165; 97530; 97535; 99285; A9270; J0696; J1650; J1815; J7030

== ENCOUNTER 2023-09-22 16:16 | Emergency (ER) | payer MEDICARE, SELFPAY ==
[2023-09-22] VITALS (12 sets, daily range): BP systolic 148–156; BP diastolic 72–80; PULSE 54–100; RESP 10–16; TEMP 36.6; O2SAT 100
--- NOTE | ~2023-09-22 | CT_ITS ---
EXAMINATION: CT brain wo con DATE: 09/22/2023 16:51 INDICATION: Head injury. TECHNIQUE: Computed tomography (CT) of the head was performed without intravenous contrast. The mA wa s adjusted according to patient size. Iterative reconstruction technique was employed. The dose-lengt h product was 605.33 mGy-cm. COMPARISON: Head CT 02/28/2023 FINDINGS: There is no intracranial hemorrhage, acute infarction, or abnormal intracranial mass lesion . There are scattered areas of low attenuation in the cerebral white matter, which is within normal l imits for the patient's age. The ventricles are normal in size. There are likely changes of ocular le ns replacement surgeries. There is near complete opacification of right maxillary sinus with thickeni ng and sclerosis of the sinus tian, consistent with chronic sinusitis. The mastoid air cells are nor mal. IMPRESSION: 1. Normal aging brain. 2. Chronic right maxillary sinusitis. Reviewed, dictated and finalized at location [facility]. [facility]
--- NOTE | 2023-09-22 16:43 | ED.FALL ---
HPI - Fall General Chief Complaint: Fall Stated Complaint: fall Time Seen by Provider: 09/22/23 16:18 History of Present Illness HPI Narrative: Patient is an 87-year-old male who presents to the ER after a fall. Patient was transferring when he fell back and hit his head on dresser. No LOC. No additional complaints. He is not on any blood thinners. Has an abrasion to the back of his scalp. Patient is on hospice. Related Data Home Medications Medication Instructions Recorded Confirmed allopurinol 100 mg tablet 200 mg PO DAILY 10/22/19 02/28/23 amlodipine 10 mg tablet 10 mg PO DAILY@1700 10/22/19 02/28/23 duloxetine 60 mg capsule,delayed 60 mg PO DAILY 10/22/19 02/28/23 release glipizide 10 mg tablet 10 mg PO BID 10/22/19 02/28/23 potassium chloride 20 mEq 20 meq PO DAILY 10/22/19 02/28/23 tablet,extended release(part/cryst) levothyroxine 125 mcg tablet 125 mcg PO DAILY@0630 06/08/20 02/28/23 (Synthroid) magnesium oxide 250 mg PO DAILY 06/08/20 02/28/23 cyanocobalamin (vitamin B-12) 1,000 mcg PO 2XW 08/01/22 02/28/23 1,000 mcg tablet dulaglutide 4.5 mg/0.5 mL 4.5 mg subcut WEEKLY 10/03/22 02/28/23 subcutaneous pen injector (Trulicity) Allergies Allergy/AdvReac Type Severity Reaction Status Date / Time Sulfa (Sulfonamide Allergy Unknown Unknown Verified 12/15/22 08:31 Antibiotics) Review of Systems Review of Systems: All systems reviewed & are unremarkable except as noted in HPI and below Constitutional: Constitutional: Reports no additional constitutional complaints Cardiovascular: Cardiovascular: Reports no additional cardiovascular complaints Respiratory: Respiratory: Reports no additional respiratory complaints Gastrointestinal: Gastrointestinal: Reports no additional gastrointestinal complaints Neurologic: Denies syncope, Denies headache(s) and Denies focal weakness PMF Past Medical History Medical History Arthritis Chronic renal failure, stage 3 (moderate) Baseline creatinine is between 1.3 and 1.60. Dysphagia Esophageal stricture With several EGDs requiring dilatation. 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 History of hernia repair Umbilical hernia repair x2 with mesh. History of orthopedic surgery Repair of left elbow fracture. Family History Family History Father Carotid artery stenosis Mother Patient's mother is She shortly after she fell and fractured her hip. Within 6 months of fracturing her hip failure to thrive Social History Social History Social History: Surrogate decision maker: Candice Roche, daughter or Koko Kowalski, son. Code status: Do not resuscitate. Smoking status: Former smoker Tobacco type: cigarettes Second hand tobacco smoke exposure: Yes Smoking end date: 07/24/1964 Alcohol intake: former Alcohol use details: social drinker in the past Substance use: never Substance use type: does not use Last use: Quit drinking in 1975. Lack of Transportation: No Lack of Food: Never True Current Housing: Decline to Answer Concerned About Future Housing: No Difficulty Paying Gas/Electric Bills: No Difficulty Paying for Meds: No Currently Unemployed: No Education: High School Diploma/GED Difficulty w/ Childcare or Family Care: No Roxy
== END 2023-09-22 19:12 ==
PROVIDERS: Emergency Provider Emergency Medicine; PCP Family Medicine
DX: S00.93XA Contusion of unspecified part of head, initial encounter (principal); I12.9 Hypertensive chronic kidney disease with stage 1 through stage 4 chronic kidney disease, or unspecified chronic kidney disease; E11.22 Type 2 diabetes mellitus with diabetic chronic kidney disease; N18.30 Chronic kidney disease, stage 3 unspecified; E03.9 Hypothyroidism, unspecified; E78.5 Hyperlipidemia, unspecified; Z87.891 Personal history of nicotine dependence; W18.39XA Other fall on same level, initial encounter
CPT/HCPCS: 70450; 99284